=== PATIENT | female | born 1960 | race Caucasian/White ===

== ENCOUNTER 2017-07-10 11:04 | Emergency (ER) | payer OTHER ==
[2017-07-10 11:26] VITALS: RESP 18
--- NOTE | 2017-07-10 11:33 | ED ---
Lower Extremity Injury HPI - General Chief Complaint: Extremity Injury, Lower Stated Complaint: RT FOOT INJURY Time Seen by Provider: 07/10/17 11:26 Source: patient, RN notes reviewed Mode of arrival: wheelchair Limitations: no limitations - History of Present Illness Initial Comments: This a 57-year-old female presents emergency Department chief complaint right foot injury. Patient states she stepped wrong on it last night in her kitchen states that rolled. She has no ankle pain states it's intermittent top of her foot. Patient states that she's had no prior fracture to her right foot states it feels similar to when she had a fracture for left. Denies any paresthesias. Denies any other extremity injuries or head injury. Patient does admit that she has osteoporosis. - Related Data Home Medications Medication Instructions Recorded Confirmed Metoprolol Succinate (ER) [Toprol 50 mg PO DAILY 07/06/14 07/10/17 Xl] Atorvastatin [Lipitor] 80 mg PO DAILY 12/19/15 07/10/17 Famotidine [Pepcid] 20 mg PO DAILY 12/19/15 07/10/17 Aspirin 325 mg PO DAILY 07/10/17 07/10/17 Previous Rx's Medication Instructions Recorded Hydrocodone/Acetaminophen [[place] 1 tab PO Q6HR PRN #20 tab 07/10/17 5-325] Allergies Allergy/AdvReac Type Severity Reaction Status Date / Time No Known Allergies Allergy Verified 07/10/17 12:11 Review of Systems ROS Statement: Those systems with pertinent positive or pertinent negative responses have been documented in the HPI. ROS Other: All systems not noted in ROS Statement are negative. Past Medical History Past Medical History: Asthma, Coronary Artery Disease (CAD), COPD, GERD/Reflux, Hyperlipidemia, Hypertension, Myocardial Infarction ([place]), Myocardial Infarction (non Q-wave), Skin Disorder Additional Past Medical History / Comment(s): HX CONCUSSION X3 CHILD. KIDNEY STONE X1. ECZEMA. [place] AGE 40; POSS [place] 11/24, TOLD NOT BY COSMETIC CHEMIST - BUT STENT REPLACED. LMP 2007. HX COLON POLYPS. Last Myocardial Infarction Date:: 12-07-13 History of Any Multi-Drug Resistant Organisms: None Reported Past Surgical History: Adenoidectomy, Appendectomy, Heart Catheterization With Stent, Orthopedic Surgery, Tonsillectomy, Tubal Ligation Additional Past Surgical History / Comment(s): Cardiac Stent 13 YEARS AGO, STENT REPLACED 12-07-13. ORIF LT ANKLE, HAS PLATE/6 SCREWS. Past Anesthesia/Blood Transfusion Reactions: Previous Problems w/ Anesthesia Additional Past Anesthesia/Blood Transfusion Reaction / Comment(s): HX LOW BLOOD PRESSURE X1 W/ COLONOSCOPY (AFTER [place]). Date of Last Stent Placement:: 12/07/13 Past Psychological History: Anxiety, Depression Smoking Status: Current every day smoker Past Alcohol Use History: Occasional Past Drug Use History: None Reported - Past Family History Father Additional Family Medical History / Comment(s): UNK Mother Family Medical History: Cancer Additional Family Medical History / Comment(s): AT AGE 62-CANCER General Exam Limitations: no limitations General appearance: alert, in no apparent distress Head exam: Present: atraumatic, normocephalic, normal inspection Respiratory exam: Present: normal lung sounds bilaterally. Absent: respiratory distress, wheezes, rales, rhonchi, stridor Cardiovascular Exam: Present: regular rate, normal rhythm, normal heart sounds. Absent: systolic murmur, diastolic murmur, rubs, gallop, clicks Extremities exam: Present: other (Right foot there is tenderness to the mid foot mild swelling pedal pulses equal bilaterally there is no tenderness over the malleolus the ankle region., Patient's full sensation of her digits) Skin exam: Present: warm, dry Course Vital Signs 07/10/17 11:24 Temperature 97.2 F L Pulse Rate 76 Respiratory 18 Rate Blood Pressure 119/59 O2 Sat by Pulse 98 Oximetry Procedures - Orthopedic Splinting/Casting Injury #1 Side: right Lower Extremity Injury Location: short leg, foot Lower Extremity Immobilizer: posterior splint, synthetic pre-padded splint Additional Comments: Neurovascular intact Medical Decision Making - Medical Decision Making 57-year-old female presentedfor right foot injury. Patient has multiple fractures of metatarsals. Case discussed with on-call orthopedics. Harish Garcia did state that it if she has neurovascular intact that she can be splinted and follow-up in office. Disposition Clinical Impression: Multiple closed fractures of metatarsal bone of right foot Disposition: HOME SELF-CARE Condition: Stable Instructions: Foot Fracture in Adults (ED) Additional Instructions: Please return to the Emergency Department if symptoms worsen or any other concerns. Prescriptions: Hydrocodone/Acetaminophen [[place] 5-325] 1 tab PO Q6HR PRN #20 tab PRN Reason: Pain Referrals: Lynn Lord MD [Primary Care Provider] - 1-2 days Poncho Rascon MD [Medical Doctor] - 1-2 days Time of Disposition: 13:16
--- NOTE | 2017-07-10 12:00 | XR ---
EXAMINATION TYPE: XR foot complete RT DATE OF EXAM: 07/10/2017 CLINICAL HISTORY: pain TECHNIQUE: Frontal, lateral and oblique images of the right foot are obtained. COMPARISON: None. FINDINGS: Nondisplaced transversely oriented fractures involving the second, third and fourth metatar sals noted. Oblique fracture at the base of the fifth metatarsal. No definite widening at this time o f the first intertarsal joint space. Overlying soft tissue swelling noted. IMPRESSION: Virtually nondisplaced metatarsal fractures of metatarsals 2 through 5. ICD 10 closed FRACTURE, INITIAL EVALUATION
[2017-07-10] MEDS ORDERED: HYDROcodone/APAP 7.5-325MG 1 EACH TAB PO ONE (12:08)
[2017-07-10 13:51] VITALS: BP 134/67; PULSE 66; TEMP 97.1
== END 2017-07-10 13:50 | disposition home or self-care (01) ==
LOC: EC 11:04
DX: S92.324A Nondisplaced fracture of second metatarsal bone, right foot, initial encounter for closed fracture (principal); S92.334A Nondisplaced fracture of third metatarsal bone, right foot, initial encounter for closed fracture; S92.344A Nondisplaced fracture of fourth metatarsal bone, right foot, initial encounter for closed fracture; S92.354A Nondisplaced fracture of fifth metatarsal bone, right foot, initial encounter for closed fracture; M81.0 Age-related osteoporosis without current pathological fracture; I25.10 Atherosclerotic heart disease of native coronary artery without angina pectoris; I25.2 Old myocardial infarction; E78.5 Hyperlipidemia, unspecified; I10 Essential (primary) hypertension; Z79.82 Long term (current) use of aspirin; Z79.899 Other long term (current) drug therapy; Z95.5 Presence of coronary angioplasty implant and graft; F17.200 Nicotine dependence, unspecified, uncomplicated; X50.1XXA Overexertion from prolonged static or awkward postures, initial encounter; Y92.000 Kitchen of unspecified non-institutional (private) residence as the place of occurrence of the external cause
CPT/HCPCS: 29515; 99283

== ENCOUNTER → 2017-10-03 | Outpatient (CLI) | payer OTHER ==
--- NOTE | 2017-10-03 11:47 | CT ---
EXAMINATION TYPE: CT brain wo con DATE OF EXAM: 10/03/2017 COMPARISON: NONE HISTORY: 57-year-old female with headache TECHNIQUE: Examination was done in axial plane without intravenous contrast. Coronal and sagittal r econstructions performed. CT DLP: 981.7 mGycm Automated exposure control for dose reduction was used. FINDINGS: There is no evidence of acute intracranial hemorrhage, acute ischemic changes, mass, mass-effect, or extra-axial fluid collection. There is no effacement of cerebral sulci or basal subarachnoid cister ns. There is no hydrocephalus. There is no midline shift. Ball-white matter distinction is preserv ed. Mild generalized supratentorial volume loss. Mild patchy white matter hypodensities in both cerebral hemispheres. Frothy opacification in the right maxillary sinus. Mastoid air cells are well pneumatized. Orbits and globes are intact. IMPRESSION: 1. Mild cerebral atrophy and changes of chronic small vessel ischemic disease. No acute intracranial abnormality seen. 2. Frothy opacification right maxillary sinus suggests acute sinusitis.
== END | disposition home or self-care (01) ==
LOC: RADCTMAIN 10:53
PROVIDERS: ATTEND Family Medicine
DX: G31.9 Degenerative disease of nervous system, unspecified (principal); I67.82 Cerebral ischemia
CPT/HCPCS: 70450

== ENCOUNTER → 2017-10-06 | Outpatient (CLI) | payer OTHER ==
--- NOTE | 2017-10-06 12:38 | ECHOF ---
Referral Reason:I25.10 Atherosclerotic heart disease of [place]... MEASUREMENTS -------- HEIGHT: 160.0 cm WEIGHT: 62.6 kg BP: IVSd: 0.9 cm (0.6 - 1.1) LVIDd: 4.3 cm (3.9 - 5.3) LVPWd: 1.1 cm (0.6 - 1.1) IVSs: 1.5 cm LVIDs: 1.9 cm LVPWs: 1.3 cm LAESV Index (A-L): 15.10 ml/m Ao Diam: 2.5 cm (2.0 - 3.7) AV Cusp: 2.0 cm (1.5 - 2.6) LA Diam: 3.0 cm (2.7 - 3.8) MV EXCURSION: 15.965 mm (> 18.000) MV EF SLOPE: 49 mm/s (70 - 150) EPSS: 0.3 cm MV E Liam: 0.49 m/s MV DecT: 171 ms MV A Liam: 1.00 m/s MV E/A Ratio: 0.49 RAP: 5.00 mmHg RVSP: 14.31 mmHg FINDINGS -------- Resting tachycardia (HR>100bpm). This was a technically good study. The left ventricular size is normal. Left ventricular wall thickness is normal. Overall left vent ricular systolic function is normal with, an EF between 55 - 60 %. The right ventricle is normal in size and function. The left atrium is normal in size. The right atrium is normal in size. The aortic valve is trileaflet, and appears structurally normal. No aortic stenosis or regurgitation. Mild mitral annular calcification present. There is trace mitral regurgitation. Trace tricuspid regurgitation present. The right ventricular systolic pressure, as measured by Dopp ler, is 14.31mmHg. Pulmonic valve appears structurally normal. The aortic root, ascending aorta and aortic arch are normal. Normal inferior vena cava with normal inspiratory collapse consistent with estimated right atrial pre ssure of 5 mmHg. The pericardium is normal. CONCLUSIONS -------- 1. Resting tachycardia (HR>100bpm). 2. This was a technically good study. 3. The left ventricular size is normal. 4. Left ventricular wall thickness is normal. 5. Overall left ventricular systolic function is normal with, an EF between 55 - 60 %. 6. The right ventricle is normal in size and function. 7. The left atrium is normal in size. 8. The right atrium is normal in size. 9. The aortic valve is trileaflet, and appears structurally normal. No aortic stenosis or regurgitati on. 10. Mild mitral annular calcification present. 11. There is trace mitral regurgitation. 12. Trace tricuspid regurgitation present. 13. The right ventricular systolic pressure, as measured by Doppler, is 14.31mmHg. 14. Pulmonic valve appears structurally normal. 15. The aortic root, ascending aorta and aortic arch are normal. 16. Normal inferior vena cava with normal inspiratory collapse consistent with estimated right atrial pressure of 5 mmHg. 17. The pericardium is normal. WEB PAGE DEVELOPER: Natty Gonzalez RDCS
== END | disposition home or self-care (01) ==
LOC: RADECHMAIN 11:26
PROVIDERS: ATTEND Family Medicine
DX: R51 Headache (principal); I25.10 Atherosclerotic heart disease of native coronary artery without angina pectoris
CPT/HCPCS: 93306

== ENCOUNTER → 2017-10-08 | Outpatient (CLI) | payer OTHER ==
--- NOTE | 2017-10-08 15:45 | US ---
EXAMINATION TYPE: US carotid duplex BILAT DATE OF EXAM: 10/08/2017 COMPARISON: NONE CLINICAL HISTORY: I25.10 Atherosclerotic heart disease of [place].... Headache EXAM MEASUREMENTS: RIGHT: Peak Systolic Velocity (PSV) cm/sec ----- Right CCA: 60.0 ----- Right ICA: 106.9 ----- Right ECA: 82.3 ICA/CCA ratio: 1.8 RIGHT: End Diastole cm/sec ----- Right CCA: 17.1 ----- Right ICA: 40.9 ----- Right ECA: 9.8 LEFT: Peak Systolic Velocity (PSV) cm/sec ----- Left CCA: 55.6 ----- Left ICA: 87.5 ----- Left ECA: 117.3 ICA/CCA ratio: 1.6 LEFT: End Diastole cm/sec ----- Left CCA: 12.8 ----- Left ICA: 30.5 ----- Left ECA: 22.0 VERTEBRALS (direction of flow): Right Vertebral: Antegrade Left Vertebral: Antegrade Rhythm: Normal IMPRESSION: Moderate amount of plaque visualized in bilateral bulbs. No elevated velocities. Criteria for Assigning % of Stenosis / Diameter reduction (Estimation based on the indirect measurements of the internal carotid artery velocities (ICA PSV). 1. Normal (no stenosis)=ICA PSV < 125 cm/s: ratio < 2.0: ICA EDV<40 cm/s. 2. Less than 50% stenosis=ICA PSV < 125 cm/s: ratio < 2.0: ICA EDV<40 cm/s. 3. 50 to 69% stenosis=ICA PSV of 125 to 230 cm/s: ration 2.0 ? 4.0: ICA EDV 40-100 cm/s. 4. Greater than 70% stenosis to near occlusion= ICA PSV > 230 cm/s: ratio > 4.0: ICA EDV > 100 cm/s. 5. Near occlusion= ICA PSV velocities may be low or undetectable: variable ratio and ICA EDV. 6. Total occlusion=unable to detect flow.
== END | disposition home or self-care (01) ==
LOC: RADUSWWP 14:54
PROVIDERS: ATTEND Family Medicine
DX: I65.23 Occlusion and stenosis of bilateral carotid arteries (principal); I25.10 Atherosclerotic heart disease of native coronary artery without angina pectoris
CPT/HCPCS: 93880

== ENCOUNTER → 2017-10-28 | Outpatient (CLI) | payer OTHER ==
--- NOTE | 2017-10-30 10:57 | MM ---
Reason for exam: screening (asymptomatic). History: Patient is postmenopausal. Physical Findings: A clinical breast exam by your physician is recommended on an annual basis and results should be correlated with mammographic findings. MG Screening Mammo w CAD Bilateral CC and MLO view(s) were taken. No prior studies available for comparison. The breast tissue is heterogeneously dense. This may lower the sensitivity of mammography. No suspicious abnormality. ASSESSMENT: Negative, BI-RAD 1 RECOMMENDATION: Routine screening mammogram of both breasts in 1 year.
== END | disposition home or self-care (01) ==
LOC: RADMAMWWP 11:28
PROVIDERS: ATTEND Family Medicine
DX: Z12.31 Encounter for screening mammogram for malignant neoplasm of breast (principal)
CPT/HCPCS: 77067

== ENCOUNTER → 2017-11-10 | Outpatient (CLI) | payer OTHER | END | disposition home or self-care (01) | LOC: CPPFTMAIN 10:29 | PROVIDERS: ATTEND Family Medicine | DX: J45.909 Unspecified asthma, uncomplicated (principal) | CPT/HCPCS: 94060; 94726; 94729 ==

== ENCOUNTER 2017-12-13 16:26 | Emergency (ER) | payer OTHER ==
[2017-12-13 16:35] VITALS: BP 122/91; PULSE 92; RESP 16; TEMP 98.5
--- NOTE | 2017-12-13 16:46 | ED ---
General Adult HPI - General Chief complaint: Head Injury Stated complaint: Left eye injury Time Seen by Provider: 12/13/17 16:38 Source: patient, RN notes reviewed Mode of arrival: ambulatory Limitations: no limitations - History of Present Illness Initial comments: Patient's a 57-year-old female presented to the emergency room today with a chief complaint of a head injury that occurred 2 days ago. She states she was laying in bed early in the morning approximately 1 AM Thursday when she rolled didn't realize she was so close to the edge and rolled out of bed hitting her head on the nightstand. She states that she does not believe she lost consciousness. She states that she was able to get herself back up and go back into bed. Patient states that she's had increased swelling to the left thigh. She states that has dropped down now to the left eye as well. She states there is no pain specifically to the left eye but just surrounding the area. Patient also admits to some tenderness above the right eye as well. She states her vision has been normal has been no changes. She does admit that she's had a headache. Patient denies any other complaints. Denies any neck pain. Patient denies any recent fever, chills, shortness of breath, chest pain, back pain, abdominal pain, nausea or vomiting, numbness or tingling, visual changes, or any other complaints. - Related Data Home Medications Medication Instructions Recorded Confirmed Metoprolol Succinate (ER) [Toprol 50 mg PO DAILY 07/06/14 07/10/17 Xl] Atorvastatin [Lipitor] 80 mg PO DAILY 12/19/15 07/10/17 Famotidine [Pepcid] 20 mg PO DAILY 12/19/15 07/10/17 Aspirin 325 mg PO DAILY 07/10/17 07/10/17 Previous Rx's Medication Instructions Recorded Hydrocodone/Acetaminophen [[place] 1 tab PO Q6HR PRN #20 tab 07/10/17 5-325] Allergies Allergy/AdvReac Type Severity Reaction Status Date / Time No Known Allergies Allergy Verified 07/10/17 12:11 Review of Systems ROS Statement: Those systems with pertinent positive or pertinent negative responses have been documented in the HPI. ROS Other: All systems not noted in ROS Statement are negative. Past Medical History Past Medical History: Asthma, Coronary Artery Disease (CAD), COPD, GERD/Reflux, Hyperlipidemia, Hypertension, Myocardial Infarction ([place]), Myocardial Infarction (non Q-wave), Skin Disorder Additional Past Medical History / Comment(s): HX CONCUSSION X3 CHILD. KIDNEY STONE X1. ECZEMA. [place] AGE 40; POSS [place] 11/24, TOLD NOT BY SALES SUPPORT ASSOCIATE - BUT STENT REPLACED. LMP 2007. HX COLON POLYPS. Last Myocardial Infarction Date:: 12-07-13 History of Any Multi-Drug Resistant Organisms: None Reported Past Surgical History: Adenoidectomy, Appendectomy, Heart Catheterization With Stent, Orthopedic Surgery, Tonsillectomy, Tubal Ligation Additional Past Surgical History / Comment(s): Cardiac Stent 13 YEARS AGO, STENT REPLACED 12-07-13. ORIF LT ANKLE, HAS PLATE/6 SCREWS. Past Anesthesia/Blood Transfusion Reactions: Previous Problems w/ Anesthesia Additional Past Anesthesia/Blood Transfusion Reaction / Comment(s): HX LOW BLOOD PRESSURE X1 W/ COLONOSCOPY (AFTER ME). Date of Last Stent Placement:: 12/07/13 Past Psychological History: Anxiety, Depression Smoking Status: Current every day smoker Past Alcohol Use History: Occasional Past Drug Use History: None Reported - Past Family History Father Additional Family Medical History / Comment(s): UNK Mother Family Medical History: Cancer Additional Family Medical History / Comment(s): AT AGE 62-CANCER General Exam - General Exam Comments Initial Comments: General: The patient is awake and alert, in no distress, and does not appear acutely ill. Eye: Pupils are equal, round and reactive to light, extra-ocular movements are intact. No nystagmus. There is normal conjunctiva bilaterally. No signs of icterus. No hyphema. No subconjunctival hemorrhage. Patient does have tenderness to superior orbital bones both on the right. No inferior orbital bone tenderness. Ears, nose, mouth and throat: There are moist mucous membranes and no oral lesions. Neck: The neck is supple, there is no tenderness or JVD. Cardiovascular: There is a regular rate and rhythm. No murmur, rub or gallop is appreciated. Respiratory: Lungs are clear to auscultation, respirations are non-labored, breath sounds are equal. No wheezes, stridor, rales, or rhonchi. Musculoskeletal: Normal ROM. Normal appearance of cervical, thoracic and lumbar spine with no step-off or deformity. No tenderness midline. No Tenderness to the extremities. Strength 5/5. Sensation intact. Pulses equal bilaterally 2+. Neurological: A&O x 3. CN II-XII intact, There are no obvious motor or sensory deficits. Coordination appears grossly intact. Speech is normal. Skin: Skin is warm and dry and intact. Patient does have bruising and mild swelling peripheral in color around left eye. Psychiatric: Cooperative, appropriate mood & affect, normal judgment. Limitations: no limitations Course Vital Signs 12/13/17 16:32 Temperature 98.5 F Pulse Rate 92 Respiratory 16 Rate Blood Pressure 122/91 O2 Sat by Pulse 95 Oximetry Medical Decision Making - Medical Decision Making Patient's CT of the head head and facial bones was reviewed and shows left- sided swelling around left eye. There is no other acute abnormality. Results were unable be discussed with the patient as she had eloped from the emergency room. Patient did not tell anyone that she was leaving. Nursing staff did note that she became upset after registration was in there asking her questions. They state that she made comments such as patient artery have all his information and should know since she's been here before patient has not returned to her room. Disposition Clinical Impression: Facial contusion, Head injury, Concussion Disposition: HOME SELF-CARE Condition: Good Instructions: Concussion (ED) Is patient prescribed a controlled substance at d/c from ED?: No Referrals: Lynn Lord MD [Primary Care Provider] - 1-2 days Time of Disposition: 18:00
--- NOTE | 2017-12-13 17:24 | CT ---
EXAMINATION TYPE: CT brain wo con DATE OF EXAM: 12/13/2017 COMPARISON: 10/03/2017 HISTORY: Left orbital swelling and bruising. CT DLP: 1060.81 mGycm Automated exposure control for dose reduction was used. FINDINGS: There is some cerebral cortical atrophy. There is no mass effect nor midline shift. There is no sign of intracranial hemorrhage. There is left periorbital soft tissue swelling. There is no evidence of o rbital mass. IMPRESSION: MILD ATROPHY. THERE IS LEFT PERIORBITAL SOFT TISSUE SWELLING. NO ACUTE INTRACRANIAL ABNORMALITY.
--- NOTE | 2017-12-13 17:25 | CT ---
EXAMINATION TYPE: CT facial bones wo con DATE OF EXAM: 12/13/2017 COMPARISON: None HISTORY: Left orbital swelling and bruising. CT DLP: 761.8 mGycm Automated exposure control for dose reduction was used. TECHNIQUE: CT scan of the sinuses is performed without contrast, axial images are obtained, coronal r eformatted images are also reviewed. FINDINGS: The mandibular ring is intact. Maxilla is intact. Zygomatic arches appear normal. Nasal bon e is intact. There is fairly normal aeration of the paranasal sinuses. There is no evidence of a blow out fracture. There is 1 cm mucous retention cyst in the right maxillary sinus. There is anterior left periorbital soft tissue swelling. There is no retro-orbital mass. IMPRESSION: Left periorbital soft tissue swelling. No fracture.
== END 2017-12-13 18:09 | disposition home or self-care (01) ==
LOC: EC 16:26
DX: S06.0X0A Concussion without loss of consciousness, initial encounter (principal); M79.89 Other specified soft tissue disorders; I10 Essential (primary) hypertension; E78.5 Hyperlipidemia, unspecified; I25.10 Atherosclerotic heart disease of native coronary artery without angina pectoris; K21.9 Gastro-esophageal reflux disease without esophagitis; I25.2 Old myocardial infarction; F17.200 Nicotine dependence, unspecified, uncomplicated; Z95.5 Presence of coronary angioplasty implant and graft; Z98.890 Other specified postprocedural states; Z79.82 Long term (current) use of aspirin; Z79.899 Other long term (current) drug therapy; W06.XXXA Fall from bed, initial encounter; Y92.009 Unspecified place in unspecified non-institutional (private) residence as the place of occurrence of the external cause
CPT/HCPCS: 70450; 70486; 99283

== ENCOUNTER 2018-02-09 11:26 | Emergency (ER) | payer OTHER ==
[2018-02-09 11:30] VITALS: PULSE 75; TEMP 98.2
--- NOTE | 2018-02-09 11:56 | ED ---
General Adult HPI - General Chief complaint: Extremity Injury, Lower Stated complaint: Foot injury Time Seen by Provider: 02/09/18 11:40 Source: patient, RN notes reviewed Mode of arrival: wheelchair Limitations: no limitations - History of Present Illness Initial comments: Patient 57-year-old female presented to the emergency room today with a chief complaint of an injury to the left foot that occurred yesterday. She does not that she tripped which was walking on sidewalk. She states that she landed on the left knee. She states she has a little abrasion in this area but otherwise feels fine. She states she notices the night when on that she was having increased pain to the left foot. She states particularly over the fourth and fifth metatarsals. Patient denies any other complaints or symptoms. Patient states she is able to ambulate bear weight. Patient denies any recent fever, chills, shortness of breath, chest pain, back pain, numbness or tingling, headaches or visual changes, or any other complaints. - Related Data Home Medications Medication Instructions Recorded Confirmed Metoprolol Succinate (ER) [Toprol 50 mg PO DAILY 07/06/14 02/09/18 Xl] Famotidine [Pepcid] 20 mg PO DAILY 12/19/15 02/09/18 Aspirin 325 mg PO DAILY 07/10/17 02/09/18 Albuterol Inhaler [Ventolin Hfa 2 puff INHALATION RT-Q4H PRN 02/09/18 02/09/18 Inhaler] Allopurinol [Zyloprim] 100 mg PO HS 02/09/18 02/09/18 Atorvastatin [Lipitor] 20 mg PO HS 02/09/18 02/09/18 Fluticasone Nasal [place] [Flonase 1 spray EA NOSTRIL DAILY 02/09/18 02/09/18 Nasal [place]] Loratadine [Claritin] 10 mg PO DAILY 02/09/18 02/09/18 Sertraline HCl [Zoloft] 25 mg PO DAILY 02/09/18 02/09/18 Allergies Allergy/AdvReac Type Severity Reaction Status Date / Time No Known Allergies Allergy Verified 02/09/18 11:30 Review of Systems ROS Statement: Those systems with pertinent positive or pertinent negative responses have been documented in the HPI. ROS Other: All systems not noted in ROS Statement are negative. Past Medical History Past Medical History: Asthma, Coronary Artery Disease (CAD), COPD, GERD/Reflux, Hyperlipidemia, Hypertension, Myocardial Infarction ([place]), Myocardial Infarction (non Q-wave), Skin Disorder Additional Past Medical History / Comment(s): HX CONCUSSION X3 CHILD. KIDNEY STONE X1. ECZEMA. [place] AGE 40; POSS [place] 11/24, TOLD NOT BY ROD STRAIGHTENER - BUT STENT REPLACED. LMP 2007. HX COLON POLYPS. Last Myocardial Infarction Date:: 12-07-13 History of Any Multi-Drug Resistant Organisms: None Reported Past Surgical History: Adenoidectomy, Appendectomy, Heart Catheterization With Stent, Orthopedic Surgery, Tonsillectomy, Tubal Ligation Additional Past Surgical History / Comment(s): Cardiac Stent 13 YEARS AGO, STENT REPLACED 12-07-13. ORIF LT ANKLE, HAS PLATE/6 SCREWS. Past Anesthesia/Blood Transfusion Reactions: Previous Problems w/ Anesthesia Additional Past Anesthesia/Blood Transfusion Reaction / Comment(s): HX LOW BLOOD PRESSURE X1 W/ COLONOSCOPY (AFTER [place]). Date of Last Stent Placement:: 12/07/13 Past Psychological History: Anxiety, Depression Smoking Status: Current every day smoker Past Alcohol Use History: Occasional Past Drug Use History: None Reported - Past Family History Father Additional Family Medical History / Comment(s): UNK Mother Family Medical History: Cancer Additional Family Medical History / Comment(s): AT AGE 62-CANCER General Exam - General Exam Comments Initial Comments: General: The patient is awake and alert, in no distress, and does not appear acutely ill. Neck: The neck is supple, there is no tenderness or JVD. Musculoskeletal: Patient does have bruising over the fourth and fifth metatarsals. Patient shows good range of motion of her toes. Normal range of motion of the left ankle. Bony tenderness over the distal fourth and fifth metatarsal. Locally tender over the distal fourth and fifth metatarsals. Pedal pulse 2+. Neurological: A&O x 3. CN II-XII intact, There are no obvious motor or sensory deficits. Coordination appears grossly intact. Speech is normal. Skin: Skin is warm and dry and no rashes or lesions are noted. Psychiatric: Normal mood and affect. Limitations: no limitations Course Vital Signs 02/09/18 11:27 Temperature 98.2 F Pulse Rate 75 Respiratory 18 Rate Blood Pressure 183/84 O2 Sat by Pulse 99 Oximetry Medical Decision Making - Medical Decision Making Patient's x-rays been reviewed and does show sclerosing at the neck of the fifth metacarpal. No acute fracture dislocation present. Patient has tenderness over the proximal fifth metatarsal. Tenderness is distally the fourth and fifth. Patient is advised to continue ice elevate and follow-up with the orthopedic doctor over the next 7-10 days for repeat x-rays if symptoms persist. Disposition Clinical Impression: Foot contusion Disposition: HOME SELF-CARE Condition: Good Instructions: Foot Contusion (ED) Additional Instructions: Please continue to ice elevate the affected area at least 4 times a day for 20 minutes at a time. Please use Tylenol/ibuprofen for pain. Please follow-up in 7-10 days for repeat x-rays if symptoms persist. Please return to emergency room for any other concerns. Is patient prescribed a controlled substance at d/c from ED?: No Referrals: Lynn Lord MD [Primary Care Provider] - 1-2 days Time of Disposition: 13:05
--- NOTE | 2018-02-09 12:16 | XR ---
EXAMINATION TYPE: XR foot complete LT DATE OF EXAM: 02/09/2018 CLINICAL HISTORY: pain TECHNIQUE: Frontal, lateral and oblique images of the left foot are obtained. COMPARISON: None. FINDINGS: There is no acute fracture/dislocation evident. Sclerosis at the neck of the fifth metatar juju may reflect a nonacute fracture. Correlate clinically point tenderness. The joint spaces appear within normal limits. The overlying soft tissue appears unremarkable. Postoperative changes left ank le. IMPRESSION: There is no acute fracture/dislocation evident. Sclerosis at the neck of the fifth metatarsal may ref lect a nonacute fracture. Correlate clinically and with point tenderness.
[2018-02-09 13:36] VITALS: BP 164/82; RESP 16
== END 2018-02-09 13:36 | disposition home or self-care (01) ==
LOC: EC 11:26
DX: S90.32XA Contusion of left foot, initial encounter (principal); S90.122A Contusion of left lesser toe(s) without damage to nail, initial encounter; S80.212A Abrasion, left knee, initial encounter; J44.9 Chronic obstructive pulmonary disease, unspecified; E78.5 Hyperlipidemia, unspecified; I10 Essential (primary) hypertension; I25.10 Atherosclerotic heart disease of native coronary artery without angina pectoris; K21.9 Gastro-esophageal reflux disease without esophagitis; F32.9 Major depressive disorder, single episode, unspecified; F41.9 Anxiety disorder, unspecified; I25.2 Old myocardial infarction; F17.200 Nicotine dependence, unspecified, uncomplicated; Z79.51 Long term (current) use of inhaled steroids; Z79.82 Long term (current) use of aspirin; Z79.899 Other long term (current) drug therapy; Z95.5 Presence of coronary angioplasty implant and graft; Z98.890 Other specified postprocedural states; W22.8XXA Striking against or struck by other objects, initial encounter; Y93.01 Activity, walking, marching and hiking; Y92.480 Sidewalk as the place of occurrence of the external cause
CPT/HCPCS: 99283

== ENCOUNTER 2018-05-31 15:24 | Emergency (ER) | payer OTHER ==
[2018-05-31] MEDS ORDERED: ALBUTEROL NEBULIZED 2.5 MG/3 ML INHALATION STA (16:23)
[2018-05-31] MEDS ORDERED: IPRATROPIUM-ALBUTEROL 3 ML NEB INHALATION STA (16:23)
[2018-05-31] MEDS ORDERED: DEXAMETHASONE SOD PHOSPHATE 10 MG/ML 1 ML VIAL IV STA (16:23)
[2018-05-31 16:38] LABS: Basophils # (A) 0.1 k/uL (0-0.2); Basophils % (A) 1 %; Eosinophils # (A) 0.1 k/uL (0-0.7); Eosinophils % (A) 1 %; HCT 44.2 % (34.0-46.0); HGB 15.1 gm/dL (11.4-16.0); Lymphocytes # (A) 1.7 k/uL (1.0-4.8); Lymphocytes % (A) 20 %; MCH 30.8 pg (25.0-35.0); MCHC 34.1 g/dL (31.0-37.0); MCV 90.5 fL (80.0-100.0); Mean Platelet Volume 6.3; Monocytes # (A) 0.7 k/uL (0-1.0); Monocytes % (A) 8 %; Neutrophils % (A) 70 %; Platelet Count 364 k/uL (150-450); RBC 4.89 m/uL (3.80-5.40); RDW 14.1 % (11.5-15.5); WBC 8.6 k/uL (3.8-10.6)
[2018-05-31 16:53] LABS: ALT 28 U/L (9-52); AST 27 U/L (14-36); Albumin 4.3 g/dL (3.5-5.0); Alkaline Phosphatase 111 U/L (38-126); Anion Gap 8 mmol/L; Blood Urea Nitrogen 10 mg/dL (7-17); Calcium 9.6 mg/dL (8.4-10.2); Carbon Dioxide 26 mmol/L (22-30); Chloride 104 mmol/L (98-107); Glucose 121 mg/dL (74-99); Lipase 405 U/L (23-300); Magnesium 1.9 mg/dL (1.6-2.3); Potassium 3.4 mmol/L (3.5-5.1); Sodium 138 mmol/L (137-145); Total Bilirubin 0.5 mg/dL (0.2-1.3); Total Protein 7.2 g/dL (6.3-8.2)
[2018-05-31 16:55] LABS: D-Dimer 0.57 mg/L FEU (<0.60); INR 0.9 (<1.2); Partial Thromboplastin Time 24.2 sec (22.0-30.0); Prothrombin Time 9.8 sec (9.0-12.0)
[2018-05-31 17:05] LABS: Creatine Kinase 85 U/L (30-135)
--- NOTE | 2018-05-31 17:14 | ED ---
General Adult HPI - General Chief complaint: Chest Pain Stated complaint: Chest pain Time Seen by Provider: 05/31/18 16:07 Source: patient, RN notes reviewed, old records reviewed Mode of arrival: ambulatory Limitations: no limitations - History of Present Illness Initial comments: 58-year-old female history of CAD, COPD, Crohn's smoker presenting with right- sided chest pain. Patient's pain began this morning with cough. She does not report significant dyspnea, pain is worse with deep inspiration. Denies injury. Denies abdominal pain. Denies nausea vomiting. Denies diaphoresis. Denies any central or left-sided chest pain. Patient has had slight worsening cough. She is currently smoking. - Related Data Home Medications Medication Instructions Recorded Confirmed Metoprolol Succinate (ER) [Toprol 50 mg PO DAILY 07/06/14 05/31/18 Xl] Famotidine [Pepcid] 20 mg PO DAILY 12/19/15 05/31/18 Aspirin 325 mg PO DAILY 07/10/17 05/31/18 Albuterol Inhaler [Ventolin Hfa 2 puff INHALATION RT-Q4H PRN 02/09/18 05/31/18 Inhaler] Allopurinol [Zyloprim] 100 mg PO HS 02/09/18 05/31/18 Atorvastatin [Lipitor] 20 mg PO HS 02/09/18 05/31/18 Loratadine [Claritin] 10 mg PO DAILY 02/09/18 05/31/18 Sertraline HCl [Zoloft] 25 mg PO DAILY 02/09/18 05/31/18 Calcium Carbonate [Calcium] 600 mg PO TID 05/31/18 05/31/18 Losartan [Cozaar] 50 mg PO DAILY 05/31/18 05/31/18 Previous Rx's Medication Instructions Recorded Albuterol Inhaler [Ventolin Hfa 1 - 2 puff INHALATION Q4HR PRN #1 05/31/18 Inhaler] inhaler Azithromycin [Zithromax Z-pack] 0 mg PO DIRECTED #6 tab 05/31/18 predniSONE 50 mg PO DAILY #5 tab 05/31/18 Allergies Allergy/AdvReac Type Severity Reaction Status Date / Time No Known Allergies Allergy Verified 05/31/18 16:47 Review of Systems ROS Statement: Those systems with pertinent positive or pertinent negative responses have been documented in the HPI. ROS Other: All systems not noted in ROS Statement are negative. Past Medical History Past Medical History: Asthma, Coronary Artery Disease (CAD), COPD, GERD/Reflux, Hyperlipidemia, Hypertension, Myocardial Infarction (VT), Myocardial Infarction (non Q-wave), Skin Disorder Additional Past Medical History / Comment(s): HX CONCUSSION X3 CHILD. KIDNEY STONE X1. ECZEMA. VT AGE 40; POSS VT 11/24, TOLD NOT BY SOFTBALL UMPIRE - BUT STENT REPLACED. LMP 2007. HX COLON POLYPS. Last Myocardial Infarction Date:: 12-07-13 History of Any Multi-Drug Resistant Organisms: None Reported Past Surgical History: Adenoidectomy, Appendectomy, Heart Catheterization With Stent, Orthopedic Surgery, Tonsillectomy, Tubal Ligation Additional Past Surgical History / Comment(s): Cardiac Stent 13 YEARS AGO, STENT REPLACED 12-07-13. ORIF LT ANKLE, HAS PLATE/6 SCREWS. Past Anesthesia/Blood Transfusion Reactions: Previous Problems w/ Anesthesia Additional Past Anesthesia/Blood Transfusion Reaction / Comment(s): HX LOW BLOOD PRESSURE X1 W/ COLONOSCOPY (AFTER VT). Date of Last Stent Placement:: 12/07/13 Past Psychological History: Anxiety, Depression Smoking Status: Current every day smoker Past Alcohol Use History: Occasional Past Drug Use History: None Reported - Past Family History Father Additional Family Medical History / Comment(s): UNK Mother Family Medical History: Cancer Additional Family Medical History / Comment(s): AT AGE 62-CANCER General Exam Limitations: no limitations General appearance: alert, in no apparent distress Head exam: Present: atraumatic, normocephalic Eye exam: Present: normal appearance, PERRL ENT exam: Present: normal exam Neck exam: Present: normal inspection. Absent: tenderness, meningismus Respiratory exam: Present: wheezes (Bilateral breath sounds present, wheezing bilaterally). Absent: respiratory distress, rhonchi Cardiovascular Exam: Present: regular rate, normal rhythm GI/Abdominal exam: Present: soft. Absent: distended, tenderness, guarding, rebound Extremities exam: Present: normal inspection, normal capillary refill. Absent: pedal edema, calf tenderness Back exam: Present: normal inspection, full ROM. Absent: tenderness Neurological exam: Present: alert, oriented X3 Psychiatric exam: Present: normal affect, normal mood Skin exam: Present: warm, dry, intact. 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 EKG Findings - EKG Comments: EKG Findings:: EKG: Normal sinus rhythm, rate of 60, GA interval 134, QRS duration 82, QTC 456, no ST segment elevation, T waves are upright Medical Decision Making - Medical Decision Making 58-year-old female presenting with right-sided chest pain, cough and dyspnea. Patient has history of COPD, she is current smoker. EKG is nonischemic in the emergency department, chest x-ray obtained, negative for focal pneumonia or acute cardiopulmonary disease, patient has normal CBC, normal CMP, troponin and d-dimer are negative. Lipase mildly elevated, given his symptoms and right shoulder. Did obtain an ultrasound which was negative for acute cholecystitis, no gallstones, normal common bile duct. I would prefer the patient stay for treatment of both COPD as well as serial cardiac enzymes and reevaluation. Patient declines. She prefers discharge, will return with worsening or changing symptoms. Prescribed antibiotics, steroids, and albuterol. Please return with worsening or changing symptoms. - Lab Data Result diagrams: 05/31/18 16:17 05/31/18 16:17 Lab Results 05/31/18 05/31/18 05/31/18 Range/Units 16:17 16:17 16:17 WBC 8.6 (3.8-10.6) k/uL RBC 4.89 (3.80-5.40) m/uL Hgb 15.1 (11.4-16.0) gm/dL Hct 44.2 (34.0-46.0) % MCV 90.5 (80.0-100.0) fL MCH 30.8 (25.0-35.0) pg MCHC 34.1 (31.0-37.0) g/dL RDW 14.1 (11.5-15.5) % Plt Count 364 (150-450) k/uL Neutrophils % 70 % Lymphocytes % 20 % Monocytes % 8 % Eosinophils % 1 % Basophils % 1 % Neutrophils # 6.0 (1.3-7.7) k/uL Lymphocytes # 1.7 (1.0-4.8) k/uL Monocytes # 0.7 (0-1.0) k/uL Eosinophils # 0.1 (0-0.7) k/uL Basophils # 0.1 (0-0.2) k/uL PT (9.0-12.0) sec INR (<1.2) APTT (22.0-30.0) sec D-Dimer (<0.60) mg/L FEU Sodium 138 (137-145) mmol/L Potassium 3.4 L (3.5-5.1) mmol/L Chloride 104 (98-107) mmol/L Carbon Dioxide 26 (22-30) mmol/L Anion Gap 8 mmol/L BUN 10 (7-17) mg/dL Creatinine 0.58 (0.52-1.04) mg/dL Est GFR (CKD-EPI)AfAm >90 (>60 ml/min/1.73 sqM) Est GFR (CKD-EPI)NonAf >90 (>60 ml/min/1.73 sqM) Glucose 121 H (74-99) mg/dL Calcium 9.6 (8.4-10.2) mg/dL Magnesium 1.9 (1.6-2.3) mg/dL Total Bilirubin 0.5 (0.2-1.3) mg/dL AST 27 (14-36) U/L ALT 28 (9-52) U/L Alkaline Phosphatase 111 (38-126) U/L Total Creatine Kinase 85 (30-135) U/L CK-MB (CK-2) 0.6 (0.0-2.4) ng/mL CK-MB (CK-2) Rel Index 0.7 Troponin I <0.012 (0.000-0.034) ng/mL NT-Pro-B Natriuret Pep pg/mL Total Protein 7.2 (6.3-8.2) g/dL Albumin 4.3 (3.5-5.0) g/dL Lipase 405 H (23-300) U/L 05/31/18 05/31/18 Range/Units 16:17 16:17 WBC (3.8-10.6) k/uL RBC (3.80-5.40) m/uL Hgb (11.4-16.0) gm/dL Hct (34.0-46.0) % MCV (80.0-100.0) fL MCH (25.0-35.0) pg MCHC (31.0-37.0) g/dL RDW (11.5-15.5) % Plt Count (150-450) k/uL Neutrophils % % Lymphocytes % % Monocytes % % Eosinophils % % Basophils % % Neutrophils # (1.3-7.7) k/uL Lymphocytes # (1.0-4.8) k/uL Monocytes # (0-1.0) k/uL Eosinophils # (0-0.7) k/uL Basophils # (0-0.2) k/uL PT 9.8 (9.0-12.0) sec INR 0.9 (<1.2) APTT 24.2 (22.0-30.0) sec D-Dimer 0.57 (<0.60) mg/L FEU Sodium (137-145) mmol/L Potassium (3.5-5.1) mmol/L Chloride (98-107) mmol/L Carbon Dioxide (22-30) mmol/L Anion Gap mmol/L BUN (7-17) mg/dL Creatinine (0.52-1.04) mg/dL Est GFR (CKD-EPI)AfAm (>60 ml/min/1.73 sqM) Est GFR (CKD-EPI)NonAf (>60 ml/min/1.73 sqM) Glucose (74-99) mg/dL Calcium (8.4-10.2) mg/dL Magnesium (1.6-2.3) mg/dL Total Bilirubin (0.2-1.3) mg/dL AST (14-36) U/L ALT (9-52) U/L Alkaline Phosphatase (38-126) U/L Total Creatine Kinase (30-135) U/L CK-MB (CK-2) (0.0-2.4) ng/mL CK-MB (CK-2) Rel Index Troponin I (0.000-0.034) ng/mL NT-Pro-B Natriuret Pep 555 pg/mL Total Protein (6.3-8.2) g/dL Albumin (3.5-5.0) g/dL Lipase (23-300) U/L Disposition Clinical Impression: Chest pain, COPD exacerbation Disposition: HOME SELF-CARE Condition: Good Instructions (If sedation given, give patient instructions): Chest Pain (ED), COPD (Chronic Obstructive Pulmonary Disease) (ED) Prescriptions: Albuterol Inhaler [Ventolin Hfa Inhaler] 1 - 2 puff INHALATION Q4HR PRN #1 inhaler PRN Reason: Shortness Of Breath Azithromycin [Zithromax Z-pack] 0 mg PO DIRECTED #6 tab predniSONE 50 mg PO DAILY #5 tab Is patient prescribed a controlled substance at d/c from ED?: No Referrals: Lynn Lord MD [Primary Care Provider] - 1-2 days Time of Disposition: 20:33
[2018-05-31 17:18] LABS: Creatine Kinase MB 0.6 ng/mL (0.0-2.4); Troponin I <0.012 ng/mL (0.000-0.034)
--- NOTE | 2018-05-31 17:47 | XR ---
EXAMINATION TYPE: XR chest 2V DATE OF EXAM: 05/31/2018 COMPARISON: 03/02/2014 HISTORY: Chest pain TECHNIQUE: Frontal and lateral views of the chest are obtained. FINDINGS: Heart and mediastinum are normal. Lungs are clear. Diaphragm is normal. Bony thorax appear s normal. There are chest leads. IMPRESSION: Normal chest. No change.
--- NOTE | 2018-05-31 20:10 | US ---
EXAMINATION TYPE: US gallbladder DATE OF EXAM: 05/31/2018 COMPARISON: NONE CLINICAL HISTORY: Pain. Pain EXAM MEASUREMENTS: Liver Length: 13.5 cm Gallbladder Wall: 0.3 cm CBD: 0.4 cm Right Kidney: 9.1 x 5.1 x 3.5 cm Pancreas: Obscured by bowel gas Liver: wnl Gallbladder: wnl Evidence for sonographic Gillis's sign: No CBD: wnl Right Kidney: wnl IMPRESSION: Negative right upper quadrant abdominal sonogram. No gallstones or dilated ducts.
[2018-05-31 21:27] VITALS: BP 126/87; PULSE 80; RESP 16; TEMP 98.2
== END 2018-05-31 21:15 | disposition home or self-care (01) ==
LOC: EC 15:24
DX: J44.1 Chronic obstructive pulmonary disease with (acute) exacerbation (principal); R74.8 Abnormal levels of other serum enzymes; I25.10 Atherosclerotic heart disease of native coronary artery without angina pectoris; K21.9 Gastro-esophageal reflux disease without esophagitis; E78.5 Hyperlipidemia, unspecified; I10 Essential (primary) hypertension; I25.2 Old myocardial infarction; F32.9 Major depressive disorder, single episode, unspecified; F41.9 Anxiety disorder, unspecified; F17.200 Nicotine dependence, unspecified, uncomplicated; Z87.442 Personal history of urinary calculi; Z79.82 Long term (current) use of aspirin; Z95.5 Presence of coronary angioplasty implant and graft; Z79.899 Other long term (current) drug therapy; Z53.29 Procedure and treatment not carried out because of patient's decision for other reasons; Z53.8 Procedure and treatment not carried out for other reasons
CPT/HCPCS: 36415; 94640; 93005; 85379; 83880; 80053; 82550; 82553; 83690; 83735; 84484; 85025; 85610; 85730; 71046; 76705; 99285; 96374; J1100

== ENCOUNTER → 2018-07-15 | Outpatient (CLI) | payer OTHER ==
--- NOTE | 2018-07-15 15:16 | XR ---
EXAMINATION TYPE: XR wrist complete LT DATE OF EXAM: 07/15/2018 CLINICAL HISTORY: Pain after fall injury. TECHNIQUE: Frontal, lateral, scaphoid, and oblique images of the left wrist are obtained. COMPARISON: None FINDINGS: There is no acute fracture/dislocation evident in the left wrist. The joint spaces in the left wrist appear within normal limits. The overlying soft tissue appears unremarkable. IMPRESSION: There is no acute fracture or dislocation in the left wrist.
--- NOTE | 2018-07-15 15:20 | XR ---
EXAMINATION TYPE: XR chest 2V DATE OF EXAM: 07/15/2018 COMPARISON: Chest x-ray May 31, 2018. HISTORY: Fall injury today with pain. TECHNIQUE: Frontal and lateral views of the chest are obtained. FINDINGS: There is no focal air space opacity, pleural effusion, or pneumothorax seen. The cardiac silhouette size is within normal limits. The osseous structures are intact. IMPRESSION: No acute cardiopulmonary process.
--- NOTE | 2018-07-15 15:21 | XR ---
EXAMINATION TYPE: XR thoracic spine complete DATE OF EXAM: 07/15/2018 CLINICAL HISTORY: Upper back pain after fall injury today. TECHNIQUE: Frontal, lateral, and swimmer's view of thoracic spine are obtained. COMPARISON: Chest x-ray May 31, 2018.. FINDINGS: Thoracic spine redemonstrates dextroconvex scoliosis centered mid to lower thoracic spine w ithout evidence of acute fracture or dislocation. Vertebral body heights and disc space heights are preserved. Visualized ribs are unremarkable bilaterally. IMPRESSION: Scoliotic curvature redemonstrated. No acute fracture or dislocation is seen.
== END ==
LOC: RADXRMAIN 14:45
PROVIDERS: ATTEND Emergency Medicine
DX: M41.84 Other forms of scoliosis, thoracic region (principal); S63.502A Unspecified sprain of left wrist, initial encounter; S30.1XXA Contusion of abdominal wall, initial encounter
CPT/HCPCS: 71046; 72072

== ENCOUNTER 2018-07-21 11:10 | Emergency (ER) | payer OTHER ==
[2018-07-21 12:48] LABS: Basophils # (A) 0.1 k/uL (0-0.2); Basophils % (A) 1 %; Eosinophils # (A) 0.2 k/uL (0-0.7); Eosinophils % (A) 4 %; HCT 44.9 % (34.0-46.0); HGB 15.3 gm/dL (11.4-16.0); Lymphocytes # (A) 1.7 k/uL (1.0-4.8); Lymphocytes % (A) 40 %; MCH 31.1 pg (25.0-35.0); MCHC 34.1 g/dL (31.0-37.0); MCV 91.1 fL (80.0-100.0); Mean Platelet Volume 7.4; Monocytes # (A) 0.2 k/uL (0-1.0); Monocytes % (A) 5 %; Neutrophils % (A) 49 %; Platelet Count 271 k/uL (150-450); RBC 4.93 m/uL (3.80-5.40); RDW 15.3 % (11.5-15.5); WBC 4.2 k/uL (3.8-10.6)
--- NOTE | 2018-07-21 12:51 | ED ---
General Adult HPI - General Chief complaint: Abdominal Pain Stated complaint: Abd injury-[facility] Time Seen by Provider: 07/21/18 12:21 Source: patient, RN notes reviewed, old records reviewed Mode of arrival: ambulatory Limitations: no limitations - History of Present Illness Initial comments: [id number] presenting for evaluation of abdominal pain. Pain is predominantly epigastric and right upper quadrant. Patient had a fall 4 days ago and has had increasing pain since the fall. No head or neck trauma. No anticoagulation. She had no pain prior to the fall. She was sent from [facility] for evaluation. Vomiting, denies fever or chills, denies diarrhea. - Related Data Home Medications Medication Instructions Recorded Confirmed Metoprolol Succinate (ER) [Toprol 50 mg PO DAILY 07/06/14 07/21/18 Xl] Famotidine [Pepcid] 20 mg PO DAILY 12/19/15 07/21/18 Aspirin 325 mg PO DAILY 07/10/17 07/21/18 Allopurinol [Zyloprim] 100 mg PO HS 02/09/18 07/21/18 Loratadine [Claritin] 10 mg PO DAILY 02/09/18 07/21/18 Sertraline HCl [Zoloft] 25 mg PO DAILY 02/09/18 07/21/18 Calcium Carbonate [Calcium] 600 mg PO TID 05/31/18 07/21/18 Losartan [Cozaar] 50 mg PO DAILY 05/31/18 07/21/18 Atorvastatin [Lipitor] 80 mg PO HS 07/21/18 07/21/18 Allergies Allergy/AdvReac Type Severity Reaction Status Date / Time No Known Allergies Allergy Verified 07/21/18 12:26 Review of Systems ROS Statement: Those systems with pertinent positive or pertinent negative responses have been documented in the HPI. ROS Other: All systems not noted in ROS Statement are negative. Past Medical History Past Medical History: Asthma, Coronary Artery Disease (CAD), COPD, GERD/Reflux, Hyperlipidemia, Hypertension, Myocardial Infarction (CT), Myocardial Infarction (non Q-wave), Skin Disorder Additional Past Medical History / Comment(s): HX CONCUSSION X3 CHILD. KIDNEY STONE X1. ECZEMA. CT AGE 40; POSS CT 11/24, TOLD NOT BY CHIEF DEPUTY CORONER - BUT STENT REPLACED. LMP 2007. HX COLON POLYPS. Last Myocardial Infarction Date:: 12-07-13 History of Any Multi-Drug Resistant Organisms: None Reported Past Surgical History: Adenoidectomy, Appendectomy, Heart Catheterization With Stent, Orthopedic Surgery, Tonsillectomy, Tubal Ligation Additional Past Surgical History / Comment(s): Cardiac Stent 13 YEARS AGO, STENT REPLACED 12-07-13. ORIF LT ANKLE, HAS PLATE/6 SCREWS. Past Anesthesia/Blood Transfusion Reactions: Previous Problems w/ Anesthesia Additional Past Anesthesia/Blood Transfusion Reaction / Comment(s): HX LOW BLOOD PRESSURE X1 W/ COLONOSCOPY (AFTER CT). Date of Last Stent Placement:: 12/07/13 Past Psychological History: Anxiety, Depression Smoking Status: Current every day smoker Past Alcohol Use History: Occasional Past Drug Use History: None Reported - Past Family History Father Additional Family Medical History / Comment(s): UNK Mother Family Medical History: Cancer Additional Family Medical History / Comment(s): AT AGE 62-CANCER General Exam Limitations: no limitations General appearance: alert, in no apparent distress Head exam: Present: atraumatic, normocephalic Eye exam: Present: normal appearance, PERRL ENT exam: Present: normal exam Neck exam: Present: normal inspection. Absent: tenderness, meningismus Cardiovascular Exam: Present: regular rate, normal rhythm GI/Abdominal exam: Present: soft, tenderness (Epigastric and right upper quadrant tenderness to palpation), other (Anterior abdominal wall ecchymosis). Absent: distended, guarding, rebound Extremities exam: Present: normal inspection, full ROM. Absent: tenderness Neurological exam: Present: alert, oriented X3, CN II-XII intact, normal gait. Absent: motor sensory deficit Psychiatric exam: Present: normal affect, normal mood Skin exam: Present: warm, dry, intact. Absent: cyanosis Course Vital Signs 07/21/18 07/21/18 11:37 14:19 Temperature 97.8 F Pulse Rate 71 69 Respiratory 16 18 Rate Blood Pressure 145/75 128/64 O2 Sat by Pulse 99 98 Oximetry EKG Findings - EKG Comments: EKG Findings:: EKG: Normal sinus rhythm, rate 79, DC interval 136, QRS duration 78, QTC 467. No ischemic changes. Medical Decision Making - Medical Decision Making 58-year-old female presenting status post fall with complaint of abdominal pain. There is mild ecchymosis on the epigastric and left upper quadrant region of the abdomen. Epigastric and right upper quadrant tenderness to palpation, no rebound no guarding, nonsurgical abdomen. CT is obtained, this is negative for acute traumatic injury. Normal CBC, normal CMP. Mild elevation the patient's serum lipase 373. - Lab Data Result diagrams: 07/21/18 12:34 07/21/18 12:34 Lab Results 07/21/18 07/21/18 07/21/18 Range/Units 12:34 12:34 12:34 WBC 4.2 (3.8-10.6) k/uL RBC 4.93 (3.80-5.40) m/uL Hgb 15.3 (11.4-16.0) gm/dL Hct 44.9 (34.0-46.0) % MCV 91.1 (80.0-100.0) fL MCH 31.1 (25.0-35.0) pg MCHC 34.1 (31.0-37.0) g/dL RDW 15.3 (11.5-15.5) % Plt Count 271 (150-450) k/uL Neutrophils % 49 % Lymphocytes % 40 % Monocytes % 5 % Eosinophils % 4 % Basophils % 1 % Neutrophils # 2.0 (1.3-7.7) k/uL Lymphocytes # 1.7 (1.0-4.8) k/uL Monocytes # 0.2 (0-1.0) k/uL Eosinophils # 0.2 (0-0.7) k/uL Basophils # 0.1 (0-0.2) k/uL Sodium 141 (137-145) mmol/L Potassium 3.9 (3.5-5.1) mmol/L Chloride 105 (98-107) mmol/L Carbon Dioxide 26 (22-30) mmol/L Anion Gap 10 mmol/L BUN 9 (7-17) mg/dL Creatinine 0.75 (0.52-1.04) mg/dL Est GFR (CKD-EPI)AfAm >90 (>60 ml/min/1.73 sqM) Est GFR (CKD-EPI)NonAf 89 (>60 ml/min/1.73 sqM) Glucose 87 (74-99) mg/dL Calcium 9.8 (8.4-10.2) mg/dL Total Bilirubin 0.5 (0.2-1.3) mg/dL AST 34 (14-36) U/L ALT 29 (9-52) U/L Alkaline Phosphatase 100 (38-126) U/L Troponin I <0.012 (0.000-0.034) ng/mL Total Protein 7.7 (6.3-8.2) g/dL Albumin 4.4 (3.5-5.0) g/dL Amylase 95 (30-110) U/L Lipase 373 H (23-300) U/L Urine Color Urine Appearance (Clear) Urine pH (5.0-8.0) Ur Specific [place] (1.001-1.035) Urine Protein (Negative) Urine Glucose (UA) (Negative) Urine Ketones (Negative) Urine Blood (Negative) Urine Nitrite (Negative) Urine Bilirubin (Negative) Urine Urobilinogen (<2.0) mg/dL Ur Leukocyte Esterase (Negative) 07/21/18 Range/Units 14:30 WBC (3.8-10.6) k/uL RBC (3.80-5.40) m/uL Hgb (11.4-16.0) gm/dL Hct (34.0-46.0) % MCV (80.0-100.0) fL MCH (25.0-35.0) pg MCHC (31.0-37.0) g/dL RDW (11.5-15.5) % Plt Count (150-450) k/uL Neutrophils % % Lymphocytes % % Monocytes % % Eosinophils % % Basophils % % Neutrophils # (1.3-7.7) k/uL Lymphocytes # (1.0-4.8) k/uL Monocytes # (0-1.0) k/uL Eosinophils # (0-0.7) k/uL Basophils # (0-0.2) k/uL Sodium (137-145) mmol/L Potassium (3.5-5.1) mmol/L Chloride (98-107) mmol/L Carbon Dioxide (22-30) mmol/L Anion Gap mmol/L BUN (7-17) mg/dL Creatinine (0.52-1.04) mg/dL Est GFR (CKD-EPI)AfAm (>60 ml/min/1.73 sqM) Est GFR (CKD-EPI)NonAf (>60 ml/min/1.73 sqM) Glucose (74-99) mg/dL Calcium (8.4-10.2) mg/dL Total Bilirubin (0.2-1.3) mg/dL AST (14-36) U/L ALT (9-52) U/L Alkaline Phosphatase (38-126) U/L Troponin I (0.000-0.034) ng/mL Total Protein (6.3-8.2) g/dL Albumin (3.5-5.0) g/dL Amylase (30-110) U/L Lipase (23-300) U/L Urine Color Yellow Urine Appearance Clear (Clear) Urine pH 7.0 (5.0-8.0) Ur Specific [place] 1.044 H (1.001-1.035) Urine Protein Negative (Negative) Urine Glucose (UA) Negative (Negative) Urine Ketones Negative (Negative) Urine Blood Negative (Negative) Urine Nitrite Negative (Negative) Urine Bilirubin Negative (Negative) Urine Urobilinogen <2.0 (<2.0) mg/dL Ur Leukocyte Esterase Negative (Negative) Disposition Clinical Impression: Abdominal pain Disposition: HOME SELF-CARE Condition: Good Instructions (If sedation given, give patient instructions): Abdominal Pain (ED) Is patient prescribed a controlled substance at d/c from ED?: No Referrals: Lynn Lord MD [Primary Care Provider] - 1-2 days Time of Disposition: 14:44
[2018-07-21 13:11] LABS: ALT 29 U/L (9-52); AST 34 U/L (14-36); Albumin 4.4 g/dL (3.5-5.0); Alkaline Phosphatase 100 U/L (38-126); Amylase 95 U/L (30-110); Anion Gap 10 mmol/L; Blood Urea Nitrogen 9 mg/dL (7-17); Calcium 9.8 mg/dL (8.4-10.2); Carbon Dioxide 26 mmol/L (22-30); Chloride 105 mmol/L (98-107); Glucose 87 mg/dL (74-99); Lipase 373 U/L (23-300); Potassium 3.9 mmol/L (3.5-5.1); Sodium 141 mmol/L (137-145); Total Bilirubin 0.5 mg/dL (0.2-1.3); Total Protein 7.7 g/dL (6.3-8.2)
--- NOTE | 2018-07-21 14:30 | CT ---
EXAMINATION TYPE: CT abdomen pelvis w con DATE OF EXAM: 07/21/2018 HISTORY: Epigastric pain. left flank contusion, post fall CT DLP: 637.4mGycm Automated Exposure Control for Dose Reduction was Utilized. CONTRAST: CT scan of the abdomen and pelvis is performed without oral but with IV Contrast, patient injected wi th 100 mL of Isovue 300. COMPARISON: None. FINDINGS: LUNG BASES: No significant abnormality is appreciated. LIVER/GB: No significant abnormality is appreciated. PANCREAS: No significant abnormality is seen. SPLEEN: No significant abnormality is seen. ADRENALS: No significant abnormality is seen. KIDNEYS: There is focal cortical scar with 6 mm calculus lower pole right kidney coronal image 56. Th ere is focal cortical scar upper pole level right kidney. There is symmetric cortical medullary uptak e and excretion without hydronephrosis bilaterally. BOWEL: Debris-filled stomach suggest recent meal ingestion. Diverticula in the sigmoid colon are pres ent. No suspicious small or large bowel dilatation. UTERUS/ADNEXA: Anteverted uterus is seen. LYMPH NODES: No greater than 1cm abdominal or pelvic lymph nodes are appreciated. OSSEOUS STRUCTURES: Transitional-type vertebra at lumbosacral junction noted. Facet arthropathy lower lumbar spine is seen. OTHER: Moderate calcified plaque of aorta extends into branch vessels. IMPRESSION: No acute posttraumatic finding. Debris filled stomach suggest recent meal ingestion, david ot exclude gastroparesis in the appropriate clinical setting. Correlate clinically.
[2018-07-21 14:38] LABS: Appearance,Urine Clear (Clear); Bilirubin,Urine Negative (Negative); Blood,Urine Negative (Negative); Color,Urine Yellow; Glucose,Urine (UA) Negative (Negative); Ketones,Urine Negative (Negative); Leukocyte Esterase,Urine Negative (Negative); Nitrite,Urine Negative (Negative); Protein,Urine Negative (Negative); Specific Gravity,Urine 1.044 (1.001-1.035); Urobilinogen,Urine <2.0 mg/dL (<2.0)
[2018-07-21 15:11] VITALS: BP 132/64; PULSE 70; RESP 20; TEMP 97.9
== END 2018-07-21 15:00 | disposition home or self-care (01) ==
LOC: EC 11:10
DX: S30.1XXA Contusion of abdominal wall, initial encounter (principal); I25.10 Atherosclerotic heart disease of native coronary artery without angina pectoris; K21.9 Gastro-esophageal reflux disease without esophagitis; E78.5 Hyperlipidemia, unspecified; I10 Essential (primary) hypertension; I25.2 Old myocardial infarction; F41.9 Anxiety disorder, unspecified; F32.9 Major depressive disorder, single episode, unspecified; F17.200 Nicotine dependence, unspecified, uncomplicated; Z79.82 Long term (current) use of aspirin; Z79.899 Other long term (current) drug therapy; Z95.5 Presence of coronary angioplasty implant and graft; Z90.89 Acquired absence of other organs; W19.XXXA Unspecified fall, initial encounter; Y92.69 Other specified industrial and construction area as the place of occurrence of the external cause; Y99.0 Civilian activity done for income or pay
CPT/HCPCS: 36415; 74177; 80053; 81003; 82150; 83690; 84484; 85025; 93005; 99285

== ENCOUNTER 2018-10-15 23:08 | Observation (INO) | payer OTHER ==
[2018-10-15 23:14] VITALS: RESP 16
[2018-10-15] MEDS ORDERED: SODIUM CHLORIDE 0.9% 1,000 ML IV STA (23:24)
[2018-10-15 23:52] LABS: Basophils # (A) 0.1 k/uL (0-0.2); Basophils % (A) 2 %; Eosinophils # (A) 0.2 k/uL (0-0.7); Eosinophils % (A) 4 %; HCT 30.7 % (34.0-46.0); HGB 10.8 gm/dL (11.4-16.0); Lymphocytes # (A) 2.4 k/uL (1.0-4.8); Lymphocytes % (A) 54 %; MCH 32.3 pg (25.0-35.0); MCHC 35.1 g/dL (31.0-37.0); MCV 92.1 fL (80.0-100.0); Mean Platelet Volume 7.4; Monocytes # (A) 0.2 k/uL (0-1.0); Monocytes % (A) 4 %; Neutrophils # (A) 1.4 k/uL (1.3-7.7); Neutrophils % (A) 32 %; Platelet Count 259 k/uL (150-450); RBC 3.33 m/uL (3.80-5.40); RDW 14.7 % (11.5-15.5); WBC 4.4 k/uL (3.8-10.6)
[2018-10-16 00:04] LABS: ALT 15 U/L (9-52); AST 26 U/L (14-36); African American GFR (CKD) >90 (>60 ml/min/1.73 sqM); Albumin 4.2 g/dL (3.5-5.0); Alkaline Phosphatase 111 U/L (38-126); Anion Gap 8 mmol/L; Blood Urea Nitrogen 13 mg/dL (7-17); Calcium 9.1 mg/dL (8.4-10.2); Carbon Dioxide 27 mmol/L (22-30); Chloride 108 mmol/L (98-107); Glucose 86 mg/dL (74-99); Phosphorus 3.8 mg/dL (2.5-4.5); Potassium 4.5 mmol/L (3.5-5.1); Sodium 143 mmol/L (137-145); Total Bilirubin 0.2 mg/dL (0.2-1.3); Total Protein 7.1 g/dL (6.3-8.2)
--- NOTE | 2018-10-16 00:16 | CT ---
EXAM: CT Head Without Intravenous Contrast CLINICAL HISTORY: Fall. TECHNIQUE: Axial computed tomography images of the head/brain without intravenous contrast. Coronal and sagittal reformations provided. CTDI is 45.2 mGy and DLP is 979.1 mGy-cm. This CT exam was performed using one or more of the following dose reduction techniques: automated exposure control, adjustment of the mA and/or kV according to patient size, and/or use of iterative reconstruction technique. COMPARISON: CT dated 12/13/2017. FINDINGS: Brain: Unremarkable. No acute intracranial hemorrhage. No significant white matter disease. No edema. No mass effect or midline shift. Mild atrophy. Ventricles: Unremarkable. No ventriculomegaly. Bones/joints: Unremarkable. No acute fracture. Soft tissues: Unremarkable. Sinuses: Mild opacity in right maxillary sinus. Remainder of visualized paranasal sinuses are clear. Mastoid air cells: Unremarkable as visualized. No mastoid effusion. IMPRESSION: No acute intracranial hemorrhage, skull fracture, or other acute intracranial abnormality. EXAM: CT Cervical Spine Without Intravenous Contrast CLINICAL HISTORY: Fall. TECHNIQUE: Axial computed tomography images of the cervical spine without intravenous contrast. Coronal and sagittal reformations provided. CTDI is 9.6 mGy and DLP is 262.6 mGy-cm. This CT exam was performed using one or more of the following dose reduction techniques: automated exposure control, adjustment of the mA and/or kV according to patient size, and/or use of iterative reconstruction technique. COMPARISON: No relevant prior studies available. FINDINGS: Vertebrae: No acute fracture or traumatic malalignment of the cervical spine. Tiny cervical junction is intact. Facet joints are normally aligned. There is straightening of the cervical spine. Multilevel degenerative changes are present. Discs/spinal canal/neural foramina: Disc space narrowing at C4-5, C5-6 and C6-7. No evidence of significant spinal canal stenosis. Soft tissues: Unremarkable as visualized. IMPRESSION: 1. No acute fracture or traumatic subluxation of the cervical spine. 2. Degenerative changes of the cervical spine.
[2018-10-16 00:20] LABS: Amphetamine Screen,Urine Not Detected (NotDetected); Appearance,Urine Cloudy (Clear); Bacteria,Urine Rare /hpf; Barbiturate Screen,Urine Not Detected (NotDetected); Benzodiazepines Screen,Urine Not Detected (NotDetected); Bilirubin,Urine Negative (Negative); Blood,Urine Negative (Negative); Cocaine Screen,Urine Not Detected (NotDetected); Color,Urine Light Yellow; Glucose,Urine (UA) Negative (Negative); Hyaline Casts,Urine 1 /lpf (0-2); Ketones,Urine Negative (Negative); Leukocyte Esterase,Urine Trace (Negative); Methadone Screen, Urine Not Detected (NotDetected); Mucus,Urine Rare /hpf; Nitrite,Urine Negative (Negative); Opiate Screen,Urine Not Detected (NotDetected); Oxycodone Screen, Urine Not Detected (NotDetected); Phencyclidine Screen,Urine Not Detected (NotDetected); Protein,Urine Negative (Negative); RBC,Urine 2 /hpf (0-5); Specific Gravity,Urine 1.005 (1.001-1.035); Squamous Epithelial Cell,Urine 6 /hpf (0-4); Tricyclic Antidepressant,Urine Not Detected (NotDetected); Urn Cannabinoid Scrn Not Detected (NotDetected); Urobilinogen,Urine <2.0 mg/dL (<2.0); WBC,Urine 2 /hpf (0-5)
[2018-10-16 00:39] LABS: Alcohol 370 mg/dL
--- NOTE | 2018-10-16 01:11 | ED ---
Alcohol HPI - General Source: EMS Mode of arrival: EMS Limitations: no limitations <Wendie Shabazz - Last Filed: 10/16/18 02:29> <Margot Vance - Last Filed: 10/17/18 05:01> - General Chief Complaint: Alcohol Stated Complaint: ETOH Time Seen by Provider: 10/15/18 23:24 - History of Present Illness Initial Comments: 58-year-old female presenting for alcohol Intoxication. Patient was found [place] ground at a park. They state the patient was intoxicated. Patient family had left her there. Patient has no complaints. She states "she is fine and wants to go home". Patient was unconscious when EMS arrived. ROS negative, patient denies any recent fever, chills, shortness of breath, chest pain, back pain, abdominal pain, nausea or vomiting, numbness or tingling, dysuria or hematuria, constipation or diarrhea, headaches or visual changes, or any other complaints. (Wendie Shabazz) - Related Data Home Medications Medication Instructions Recorded Confirmed Metoprolol Succinate (ER) [Toprol 50 mg PO DAILY 07/06/14 10/16/18 Xl] Famotidine [Pepcid] 20 mg PO DAILY 12/19/15 10/16/18 Aspirin 325 mg PO DAILY 07/10/17 10/16/18 Allopurinol [Zyloprim] 100 mg PO HS 02/09/18 10/16/18 Loratadine [Claritin] 10 mg PO DAILY 02/09/18 10/16/18 Sertraline HCl [Zoloft] 25 mg PO DAILY 02/09/18 10/16/18 Calcium Carbonate [Calcium] 600 mg PO TID 05/31/18 07/21/18 Losartan [Cozaar] 50 mg PO DAILY 05/31/18 07/21/18 Atorvastatin [Lipitor] 80 mg PO HS 07/21/18 10/16/18 Allergies Allergy/AdvReac Type Severity Reaction Status Date / Time No Known Allergies Allergy Verified 07/21/18 12:26 Review of Systems ROS Other: All systems not noted in ROS Statement are negative. <Wendie Shabazz - Last Filed: 10/16/18 02:29> ROS Other: All systems not noted in ROS Statement are negative. <Margot Vance - Last Filed: 10/17/18 05:01> ROS Statement: Those systems with pertinent positive or pertinent negative responses have been documented in the HPI. Past Medical History Past Medical History: Asthma, Coronary Artery Disease (CAD), COPD, GERD/Reflux, Hyperlipidemia, Hypertension, Myocardial Infarction ([place]), Myocardial Infarction (non Q-wave), Skin Disorder Additional Past Medical History / Comment(s): HX CONCUSSION X3 CHILD. KIDNEY STONE X1. ECZEMA. [place] AGE 40; POSS [place] 11/24, TOLD NOT BY MATERIALS SCHEDULER - BUT STENT REPLACED. LMP 2007. HX COLON POLYPS. Last Myocardial Infarction Date:: 12-07-13 History of Any Multi-Drug Resistant Organisms: None Reported Past Surgical History: Adenoidectomy, Appendectomy, Heart Catheterization With Stent, Orthopedic Surgery, Tonsillectomy, Tubal Ligation Additional Past Surgical History / Comment(s): Cardiac Stent 13 YEARS AGO, STENT REPLACED 12-07-13. ORIF LT ANKLE, HAS PLATE/6 SCREWS. Past Anesthesia/Blood Transfusion Reactions: Previous Problems w/ Anesthesia Additional Past Anesthesia/Blood Transfusion Reaction / Comment(s): HX LOW BLOOD PRESSURE X1 W/ COLONOSCOPY (AFTER [place]). Date of Last Stent Placement:: 12/07/13 Past Psychological History: Anxiety, Depression Smoking Status: Current every day smoker Past Alcohol Use History: Occasional Past Drug Use History: None Reported - Past Family History Father Additional Family Medical History / Comment(s): UNK Mother Family Medical History: Cancer Additional Family Medical History / Comment(s): AT AGE 62-CANCER <Wendie Shabazz - Last Filed: 10/16/18 02:29> General Exam Limitations: no limitations <Wendie Shabazz - Last Filed: 10/16/18 02:29> - General Exam Comments Initial Comments: General: The patient is awake and alert, in no distress, and does not appear acutely ill. Eye: +3 mm pupils are equal, round and reactive to light, extra-ocular movemen ts are intact. No nystagmus. There is normal conjunctiva bilaterally. No signs of icterus. Ears, nose, mouth and throat: There are moist mucous membranes and no oral les ions. No raccoon or Galeano sign. Neck: The neck is supple, there is no tenderness or JVD. Cardiovascular: There is a regular rate and rhythm. No murmur, rub or gallop is appreciated. Respiratory: Lungs are clear to auscultation, respirations are non-labored, breath sounds are equal. No wheezes, stridor, rales, or rhonchi. Gastrointestinal: Soft, non-distended, non-tender abdomen without masses or organomegaly noted. There is no rebound or guarding present. Musculoskeletal: Normal ROM, no tenderness. Strength 5/5. Sensation intact. Pulses equal bilaterally 2+. Neurological: A&O x 3. CN II-XII intact, There are no obvious motor or sensory deficits. Coordination appears grossly intact. Speech is normal. Skin: Skin is warm and dry and no rashes or lesions are noted. Psychiatric: Appears intoxicated smells of alcohol. (Wendie Shabazz) Course Vital Signs 10/15/18 10/16/18 23:09 02:11 Temperature 98.4 F Pulse Rate 71 88 Respiratory 16 16 Rate Blood Pressure 94/77 98/55 O2 Sat by Pulse 96 99 Oximetry Medical Decision Making - Lab Data Result diagrams: 10/15/18 23:36 10/15/18 23:36 <Wendie Shabazz - Last Filed: 10/16/18 02:29> - Lab Data Result diagrams: 10/15/18 23:36 10/15/18 23:36 <Margot Vance - Last Filed: 10/17/18 05:01> - Medical Decision Making Patient presenting for ETOH intoxication. No complaints. No evidence of trauma on physical examination. CT of the brain and C-spine was obtained given history of possible fall. No evidence of acute intracranial or osseous process. Patient is walking talking no focal neurological deficits. Patient alcohol int oxication 370. Patient will be admitted for ETOH intoxication as she has no ride home. Patient agreeable with admission. Spoke with Dr. Bales who accepted patient admission. (Wendie Shabazz) I was available for consultation in the emergency department. The history and ph ysical exam were done by the midlevel provider. I was consulted for this patient's care. I reviewed the case with the midlevel provider and based on their presentation of the patient, I agree with the assessment, medical decision making and plan of care as documented. Chart was dictated using [employer]ADE dictation software. Attempts were made to correct any dictation errors however some typographical errors may persist. (Margot Vance) - Lab Data Lab Results 10/15/18 10/15/18 10/15/18 Range/Units 23:30 23:36 23:36 WBC 4.4 (3.8-10.6) k/uL RBC 3.33 L (3.80-5.40) m/uL Hgb 10.8 L (11.4-16.0) gm/dL Hct 30.7 L (34.0-46.0) % MCV 92.1 (80.0-100.0) fL MCH 32.3 (25.0-35.0) pg MCHC 35.1 (31.0-37.0) g/dL RDW 14.7 (11.5-15.5) % Plt Count 259 (150-450) k/uL Neutrophils % 32 % Lymphocytes % 54 % Monocytes % 4 % Eosinophils % 4 % Basophils % 2 % Neutrophils # 1.4 (1.3-7.7) k/uL Lymphocytes # 2.4 (1.0-4.8) k/uL Monocytes # 0.2 (0-1.0) k/uL Eosinophils # 0.2 (0-0.7) k/uL Basophils # 0.1 (0-0.2) k/uL Sodium 143 (137-145) mmol/L Potassium 4.5 (3.5-5.1) mmol/L Chloride 108 H (98-107) mmol/L Carbon Dioxide 27 (22-30) mmol/L Anion Gap 8 mmol/L BUN 13 (7-17) mg/dL Creatinine 0.72 (0.52-1.04) mg/dL Est GFR (CKD-EPI)AfAm >90 (>60 ml/min/1.73 sqM) Est GFR (CKD-EPI)NonAf >90 (>60 ml/min/1.73 sqM) Glucose 86 (74-99) mg/dL Calcium 9.1 (8.4-10.2) mg/dL Phosphorus 3.8 (2.5-4.5) mg/dL Magnesium 2.0 (1.6-2.3) mg/dL Total Bilirubin 0.2 (0.2-1.3) mg/dL AST 26 (14-36) U/L ALT 15 (9-52) U/L Alkaline Phosphatase 111 (38-126) U/L Total Protein 7.1 (6.3-8.2) g/dL Albumin 4.2 (3.5-5.0) g/dL Urine Color Light Yellow Urine Appearance Cloudy H (Clear) Urine pH 5.0 (5.0-8.0) Ur Specific [place] 1.005 (1.001-1.035) Urine Protein Negative (Negative) Urine Glucose (UA) Negative (Negative) Urine Ketones Negative (Negative) Urine Blood Negative (Negative) Urine Nitrite Negative (Negative) Urine Bilirubin Negative (Negative) Urine Urobilinogen <2.0 (<2.0) mg/dL Ur Leukocyte Esterase Trace H (Negative) Urine RBC 2 (0-5) /hpf Urine WBC 2 (0-5) /hpf Ur Squamous Epith Cells 6 H (0-4) /hpf Urine Bacteria Rare H (None) /hpf Hyaline Casts 1 (0-2) /lpf Urine Mucus Rare H (None) /hpf Urine Opiates Screen Not Detected (NotDetected) Ur Oxycodone Screen Not Detected (NotDetected) Urine Methadone Screen Not Detected (NotDetected) Ur Propoxyphene Screen Not Detected (NotDetected) Ur Barbiturates Screen Not Detected (NotDetected) U Tricyclic Antidepress Not Detected (NotDetected) Ur Phencyclidine Scrn Not Detected (NotDetected) Ur Amphetamines Screen Not Detected (NotDetected) U Methamphetamines Scrn Not Detected (NotDetected) U Benzodiazepines Scrn Not Detected (NotDetected) Urine Cocaine Screen Not Detected (NotDetected) U Marijuana (THC) Screen Not Detected (NotDetected) Serum Alcohol 370 H* mg/dL Disposition Is patient prescribed a controlled substance at d/c from ED?: No Time of Disposition: 02:29 Decision to Admit Reason: Admit from EC Decision Date: 10/16/18 Decision Time: 02:29 <Wendie Shabazz - Last Filed: 10/16/18 02:29> <Margot Vance P - Last Filed: 10/17/18 05:01> Clinical Impression: Alcohol intoxication Disposition: HOME SELF-CARE Condition: Good
[2018-10-16] MEDS ORDERED: SODIUM CHLORIDE 0.9% 500 ML 500 ML IV ONE (01:35)
[2018-10-16] MEDS ORDERED: LORazepam 2 MG/ML INJ IV PRN ×3 (01:36)
[2018-10-16] MEDS ORDERED: THIAMINE 100 MG/ML 2 ML VIAL IM STA (01:36)
[2018-10-16] MEDS ORDERED: NALOXONE 0.4 MG/ML 1 ML VIAL IV PRN (01:36)
[2018-10-16] MEDS ORDERED: SODIUM CHLORIDE 0.9% 1,000 ML IV SCH (06:00)
[2018-10-16 06:05] VITALS: BP 92/57; PULSE 69; TEMP 97.6
--- NOTE | 2018-10-16 06:39 | P.HPIM ---
History of Present Illness H&P Date: 10/16/18 Chief Complaint: Patient fell and found on the ground 58-year-old female with history of heart disease status post stents. Patient admits to heavy drinking since she normally drinks over the weekend she only takes beers but she drinks strong ones. She says she was walking back home when she tripped and fell she was found by police intoxicated and was brought to the hospital she said that she was with family and friends however obviously to have left her. She was couple minutes away from home she was ready to crawl back home if that when he took but instead she was brought to the hospital. EMS reported that she was unconscious when they arrived. In the ED she was found to be intoxicated with alcohol level above 300 for which she was admitted until she is sober She denies any chest pain or trouble breathing she denies any medical concerns at this point denies any fevers or chills. Patient denies any GI bleeding. Labs were unremarkable in the ED CT of the head was negative for any acute process Review of Systems Pertinent positives as noted in HPI. All other systems were reviewed and are negative Past Medical History Past Medical History: Asthma, Coronary Artery Disease (CAD), COPD, GERD/Reflux, Hyperlipidemia, Hypertension, Myocardial Infarction ([place]), Myocardial Infarction (non Q-wave), Skin Disorder Additional Past Medical History / Comment(s): HX CONCUSSION X3 CHILD. KIDNEY STONE X1. ECZEMA. [place] AGE 40; POSS [place] 11/24, TOLD NOT BY MANAGER RADIATION - BUT STENT REPLACED. LMP 2007. HX COLON POLYPS. Last Myocardial Infarction Date:: 12-07-13 History of Any Multi-Drug Resistant Organisms: None Reported Past Surgical History: Adenoidectomy, Appendectomy, Heart Catheterization With Stent, Orthopedic Surgery, Tonsillectomy, Tubal Ligation Additional Past Surgical History / Comment(s): Cardiac Stent 13 YEARS AGO, STENT REPLACED 12-07-13. ORIF LT ANKLE, HAS PLATE/6 SCREWS. Past Anesthesia/Blood Transfusion Reactions: Previous Problems w/ Anesthesia Additional Past Anesthesia/Blood Transfusion Reaction / Comment(s): HX LOW BLOOD PRESSURE X1 W/ COLONOSCOPY (AFTER [place]). Date of Last Stent Placement:: 12/07/13 Past Psychological History: Anxiety, Depression Smoking Status: Current every day smoker Past Alcohol Use History: Occasional Additional Past Alcohol Use History / Comment(s): SMOKING 35 YEARS, 1 PPD. Past Drug Use History: None Reported Additional Drug Use History / Comment(s): TEENAGER SMOKED MARIJUANA, NONE NOW. - Past Family History Father Additional Family Medical History / Comment(s): UNK Mother Family Medical History: Cancer Additional Family Medical History / Comment(s): AT AGE 62-CANCER Medications and Allergies Home Medications Medication Instructions Recorded Confirmed Type Metoprolol Succinate (ER) [Toprol 50 mg PO DAILY 07/06/14 10/16/18 History Xl] Famotidine [Pepcid] 20 mg PO DAILY 12/19/15 10/16/18 History Aspirin 325 mg PO DAILY 07/10/17 10/16/18 History Allopurinol [Zyloprim] 100 mg PO HS 02/09/18 10/16/18 History Loratadine [Claritin] 10 mg PO DAILY 02/09/18 10/16/18 History Sertraline HCl [Zoloft] 25 mg PO DAILY 02/09/18 10/16/18 History Calcium Carbonate [Calcium] 600 mg PO TID 05/31/18 07/21/18 History Losartan [Cozaar] 50 mg PO DAILY 05/31/18 07/21/18 History Atorvastatin [Lipitor] 80 mg PO HS 07/21/18 10/16/18 History Allergies Allergy/AdvReac Type Severity Reaction Status Date / Time No Known Allergies Allergy Verified 07/21/18 12:26 Physical Exam Vitals: Vital Signs Temp Pulse Resp BP Pulse Ox 10/16/18 02:59 16 10/16/18 02:11 88 16 98/55 99 10/15/18 23:09 98.4 F 71 16 94/77 96 Intake and Output 10/15/18 10/15/18 10/16/18 14:59 22:59 06:59 Other: Weight 61.235 kg Constitutional: No acute distress, conversant, pleasant Eyes: Anicteric sclerae, moist conjunctiva, no lid-lag Pupils equal round reactive to light ENMT: NC/AT Oropharynx clear, no erythema, exudates Neck: Supple, FROM, no masses, or JVD No carotid bruits No thyromegaly Lungs: Clear to auscultation Clear to percussion Normal respiratory effort, no accessory muscle use Cardiovascular: Heart regular in rate and rhythm, No murmurs, gallops, or rubs No peripheral edema Abdominal: Soft Nontender, no guarding, rebound or rigidity Abdomen moving with respiration Normoactive bowel sounds No hepatomegaly, No splenomegaly No palpable mass No abdominal wall hernia noted Skin: Normal temperature, tone, texture, turgor No induration No subcutaneous nodules No rash, lesions No ulcers Extremities: No digital cyanosis No clubbing Pedal pulses intact and symmetrical Radial pulses intact and symmetrical No calf tenderness Psychiatric: Alert and oriented to person, place and time Appropriate affect fair judgment Neuro Muscles Strength 5/5 in all 4 extremities Sensation to light touch grossly present throughout Cranial nerves II-XII grossly intact No focal sensory deficits Lymphatics: no palpable cervical or supraclavicular , or inguinal lymph nodes Results CBC & Chem 7: 10/15/18 23:36 10/15/18 23:36 Labs: Abnormal Lab Results - Last 24 Hours (Table) 10/15/18 10/15/18 10/15/18 Range/Units 23:30 23:36 23:36 RBC 3.33 L (3.80-5.40) m/uL Hgb 10.8 L (11.4-16.0) gm/dL Hct 30.7 L (34.0-46.0) % Chloride 108 H (98-107) mmol/L Urine Appearance Cloudy H (Clear) Ur Leukocyte Esterase Trace H (Negative) Ur Squamous Epith Cells 6 H (0-4) /hpf Urine Bacteria Rare H (None) /hpf Urine Mucus Rare H (None) /hpf Serum Alcohol 370 H* mg/dL Thrombosis Risk Factor Assmnt - Choose All That Apply Any of the Below Risk Factors Present?: Yes Each Factor Represents 1 point: Age 41-60 years, Medical pt on bed rest Other Risk Factors: No Other congenital or acquired thrombophilia - If yes, enter type in comment: No Thrombosis Risk Factor Assessment Total Risk Factor Score: 2 Thrombosis Risk Factor Assessment Level: Low Risk Assessment and Plan Assessment: 58-year-old female with history of coronary artery disease admitted under observation with anticipated length of stay less than 48 hours due to severe alcohol intoxication until sheshe is sober Plan: Acute severe alcohol intoxication secondary to alcohol abuse Benzos per CIWA scale IV fluid hydration Thiamine Full precautions Bedside sitter Anemia most likely chronic Patient denies any active GI bleeding Continue to monitor Chronic conditions COPD currently compensated History of CAD status post stents Hypertension Hyperlipidemia Continue home meds CODE STATUS: Full code DVT prophylaxis: Heparin Discussed with: Patient, ER, RN Anticipated discharge: Less than [address]: Home A total of 60* minutes was spent on the care of this complex patient more than 50% of the time was spent in counseling and care coordination.
[2018-10-16] MEDS ORDERED: HEPARIN SODIUM,PORCINE 5,000 UNIT/ML 1 ML VIAL SQ SCH (08:00)
[2018-10-16] MEDS ORDERED: FAMOTIDINE 20 MG TAB PO SCH (09:00)
[2018-10-16] MEDS ORDERED: METOPROLOL SUCCINATE (ER) 50 MG TAB.ER.24H PO SCH (09:00)
[2018-10-16] MEDS ORDERED: ASPIRIN 325 MG TAB PO SCH (09:00)
[2018-10-16] MEDS ORDERED: THIAMINE 100 MG TAB PO SCH (17:00)
[2018-10-16] MEDS ORDERED: ATORVASTATIN 80 MG TAB PO SCH (21:00)
== END 2018-10-16 08:05 | disposition left against medical advice (07) ==
LOC: EC 23:08 → 3NMEDONC 10-16 01:46
PROVIDERS: ADMIT Internal Medicine; ATTEND Internal Medicine
DX: F10.129 Alcohol abuse with intoxication, unspecified (principal); D64.9 Anemia, unspecified; K21.9 Gastro-esophageal reflux disease without esophagitis; J44.9 Chronic obstructive pulmonary disease, unspecified; I25.10 Atherosclerotic heart disease of native coronary artery without angina pectoris; F32.9 Major depressive disorder, single episode, unspecified; F17.200 Nicotine dependence, unspecified, uncomplicated; F41.9 Anxiety disorder, unspecified; I10 Essential (primary) hypertension; L30.9 Dermatitis, unspecified; E78.5 Hyperlipidemia, unspecified; Z79.82 Long term (current) use of aspirin; Z79.899 Other long term (current) drug therapy; Z86.010 Personal history of colon polyps; I25.2 Old myocardial infarction; Z87.442 Personal history of urinary calculi; Z87.820 Personal history of traumatic brain injury; Z95.5 Presence of coronary angioplasty implant and graft; Z90.49 Acquired absence of other specified parts of digestive tract; Z98.51 Tubal ligation status; Z80.9 Family history of malignant neoplasm, unspecified; Y90.8 Blood alcohol level of 240 mg/100 ml or more; Z53.21 Procedure and treatment not carried out due to patient leaving prior to being seen by health care provider
CPT/HCPCS: 82075; 96361 ×2; 96372; 96374; 99285; 36415; 80053; 83735; 84100; 85025; 81001; 80306; 72125; 70450; G0378; G0480; J2060; J3411; 80320

== ENCOUNTER 2019-07-12 10:47 | Emergency (ER) | payer OTHER ==
[2019-07-12 10:52] VITALS: BP 162/99; PULSE 125; RESP 19; TEMP 98.2
[2019-07-12] MEDS ORDERED: predniSONE 50 MG TAB PO STA (11:16)
[2019-07-12] MEDS ORDERED: CEPHALEXIN 500MG STARTER PACK 4 CAP BTL PO STA (11:16)
--- NOTE | 2019-07-12 11:21 | ED ---
Skin/Abscess/FB HPI - General Chief complaint: Skin/Abscess/Foreign Body Stated complaint: rash/SOB Time Seen by Provider: 07/12/19 11:04 Source: patient, RN notes reviewed, old records reviewed Mode of arrival: ambulatory Limitations: no limitations - History of Present Illness Initial comments: Patient is a 59-year-old female presents emergency room today with periodic rash over her neck and arms back and ears. She reports it's been worsening for the past few weeks. She reports that she has been diagnosed with eczema on the past. She has not seemed seen a cafe operator in quite some time. She states that it seems to be related as well after she is certain hair dye her hair is touching. She complains of mean lesion over her left neck. Patient states that she is using [id number] steroid cream and has had some improvement but is also burning on the open areas. - Related Data Home Medications Medication Instructions Recorded Confirmed Metoprolol Succinate (ER) [Toprol 50 mg PO DAILY 07/06/14 10/16/18 Xl] Famotidine [Pepcid] 20 mg PO DAILY 12/19/15 10/16/18 Aspirin 325 mg PO DAILY 07/10/17 10/16/18 Allopurinol [Zyloprim] 100 mg PO HS 02/09/18 10/16/18 Loratadine [Claritin] 10 mg PO DAILY 02/09/18 10/16/18 Sertraline HCl [Zoloft] 25 mg PO DAILY 02/09/18 10/16/18 Calcium Carbonate [Calcium] 600 mg PO TID 05/31/18 07/21/18 Losartan [Cozaar] 50 mg PO DAILY 05/31/18 07/21/18 Atorvastatin [Lipitor] 80 mg PO HS 07/21/18 10/16/18 Previous Rx's Medication Instructions Recorded Cephalexin [Keflex] 500 mg PO Q8HR 3 Days #21 cap 07/12/19 Hydrocortisone 1% Lotion 1 applic TOPICAL BID #1 bottle 07/12/19 Mupirocin 2% Oint [Bactroban 2% 1 applic TOPICAL TID #60 gm 07/12/19 Oint] predniSONE [Deltasone] 20 mg PO DIRECTED #12 tab 07/12/19 Allergies Allergy/AdvReac Type Severity Reaction Status Date / Time No Known Allergies Allergy Verified 07/21/18 12:26 Review of Systems ROS Statement: Those systems with pertinent positive or pertinent negative responses have been documented in the HPI. ROS Other: All systems not noted in ROS Statement are negative. Past Medical History Past Medical History: Asthma, Coronary Artery Disease (CAD), COPD, GERD/Reflux, Hyperlipidemia, Hypertension, Myocardial Infarction ([place]), Myocardial Infarction (non Q-wave), Skin Disorder Additional Past Medical History / Comment(s): HX CONCUSSION X3 CHILD. KIDNEY STONE X1. ECZEMA. [place] AGE 40; POSS [place] 11/24, TOLD NOT BY STAIN APPLICATOR - BUT STENT REPLACED. LMP 2008. HX COLON POLYPS. Last Myocardial Infarction Date:: 12-07-13 History of Any Multi-Drug Resistant Organisms: None Reported Past Surgical History: Adenoidectomy, Appendectomy, Heart Catheterization With Stent, Orthopedic Surgery, Tonsillectomy, Tubal Ligation Additional Past Surgical History / Comment(s): Cardiac Stent 13 YEARS AGO, STENT REPLACED 12-07-13. ORIF LT ANKLE, HAS PLATE/6 SCREWS. Past Anesthesia/Blood Transfusion Reactions: Previous Problems w/ Anesthesia Additional Past Anesthesia/Blood Transfusion Reaction / Comment(s): HX LOW BLOOD PRESSURE X1 W/ COLONOSCOPY (AFTER [place]). Date of Last Stent Placement:: 12/07/13 Past Psychological History: Anxiety, Depression Smoking Status: Current every day smoker Past Alcohol Use History: Occasional Past Drug Use History: None Reported - Past Family History Father Additional Family Medical History / Comment(s): UNK Mother Family Medical History: Cancer Additional Family Medical History / Comment(s): AT AGE 62-CANCER General Exam - General Exam Comments Initial Comments: 59-year-old female. Alert and oriented. No distress. Limitations: no limitations General appearance: alert, in no apparent distress Head exam: Present: atraumatic, normocephalic, normal inspection Eye exam: Present: normal appearance, PERRL, EOMI. Absent: scleral icterus, conjunctival injection, periorbital swelling ENT exam: Present: normal exam, mucous membranes moist Neck exam: Present: normal inspection. Absent: tenderness, meningismus, lymphadenopathy Respiratory exam: Present: normal lung sounds bilaterally. Absent: respiratory distress, wheezes, rales, rhonchi, stridor Cardiovascular Exam: Present: regular rate, normal rhythm, normal heart sounds. Absent: systolic murmur, diastolic murmur, rubs, gallop, clicks GI/Abdominal exam: Present: soft, normal bowel sounds. Absent: distended, tenderness, guarding, rebound, rigid Extremities exam: Present: normal inspection, full ROM, normal capillary refill. Absent: tenderness, pedal edema, joint swelling, calf tenderness Back exam: Present: normal inspection Neurological exam: Present: alert, oriented X3, CN II-XII intact Psychiatric exam: Present: normal affect, normal mood Skin exam: Present: warm, dry, intact, normal color, rash ( is erythematous plaque over the left neck with excoriations. Muscle areas of erythematous papules over her arms legs trunk and face. Evidence of excoriation and skin over ears. Appears the patient's been scratching at this device scanning concern for atopic dermatitis.) Course Vital Signs 07/12/19 10:48 Temperature 98.2 F Pulse Rate 125 H Respiratory 19 Rate Blood Pressure 162/99 O2 Sat by Pulse 99 Oximetry Medical Decision Making - Medical Decision Making 51-year-old female presents with acute rash for the past few weeks. Complains of pruritic skin. At this time Patient has evidence of atopic dermatitis. Discussed that since its widespread to treat for secondary bacterial infection with Keflex. Patient also be started on steroids and antibiotic cream and steroid ointment. I discussed following up with dermatology. Disposition Clinical Impression: Eczema Disposition: HOME SELF-CARE Condition: Good Instructions (If sedation given, give patient instructions): Dermatitis (ED) Additional Instructions: Follow-up with your primary care physician and dermatology. Patient should try to keep the area clean and dry and apply the steroid lotion as prescribed and use the antibiotic over the open areas. Patient should take the steroids and antibiotic. Follow-up with dermatology. Prescriptions: Mupirocin 2% Oint [Bactroban 2% Oint] 1 applic TOPICAL TID #60 gm predniSONE [Deltasone] 20 mg PO DIRECTED #12 tab Hydrocortisone 1% Lotion 1 applic TOPICAL BID #1 bottle Cephalexin [Keflex] 500 mg PO Q8HR 3 Days #21 cap Is patient prescribed a controlled substance at d/c from ED?: No Referrals: Lynn Lord MD [Primary Care Provider] - 1-2 days Keara Brown MD [STAFF PHYSICIAN] - 1-2 days Time of Disposition: 11:17
== END 2019-07-12 11:28 | disposition home or self-care (01) ==
LOC: EC 10:47
DX: L20.9 Atopic dermatitis, unspecified (principal); A49.9 Bacterial infection, unspecified; I25.10 Atherosclerotic heart disease of native coronary artery without angina pectoris; E78.5 Hyperlipidemia, unspecified; I10 Essential (primary) hypertension; I25.2 Old myocardial infarction; F32.9 Major depressive disorder, single episode, unspecified; F41.9 Anxiety disorder, unspecified; F17.200 Nicotine dependence, unspecified, uncomplicated; Z79.82 Long term (current) use of aspirin; Z79.899 Other long term (current) drug therapy; Z87.442 Personal history of urinary calculi; Z95.5 Presence of coronary angioplasty implant and graft
CPT/HCPCS: 99283; J7512

== ENCOUNTER 2019-09-17 16:54 | Observation (INO) | payer OTHER ==
[2019-09-17] MEDS ORDERED: SODIUM CHLORIDE 0.9% 1,000 ML IV STA (16:59)
[2019-09-17] MEDS ORDERED: LABETALOL 5 MG/ML VIAL MDV IVP STA (17:00)
[2019-09-17] MEDS ORDERED: MORPHINE SULFATE 4 MG/ML SYRINGE IVP STA (17:00)
--- NOTE | 2019-09-17 17:24 | ED ---
Chest Pain HPI - General Chief Complaint: Chest Pain Stated Complaint: Chest Pain Time Seen by Provider: 09/17/19 16:58 Source: patient, RN notes reviewed, old records reviewed Mode of arrival: EMS Limitations: no limitations - History of Present Illness Initial Comments: This is a 71-year-old female DF for evaluation patient with us for severe chest pain left-sided stabbing chest pain that began when she was up this morning. Patient's daughter blood pressure be elevated not taking any home medications. Patient has persistent chest pain especially currently. Mild nausea no vomiting severely severe pain does not take home pain medications his been off all medications for about 6 months MD Complaint: chest pain (Left-sided chest pain stabbing to the back) -: hour(s) Onset: during rest Pain Location: left chest Pain Radiation: back Severity: severe Severity scale (1-10): 9 Quality: tightness, sharp Consistency: constant Improves With: nothing Worsens With: nothing Anginal Symptoms: nausea Treatments Prior to Arrival: none - Related Data Home Medications Medication Instructions Recorded Confirmed Metoprolol Succinate (ER) [Toprol 50 mg PO DAILY 07/06/14 10/16/18 Xl] Famotidine [Pepcid] 20 mg PO DAILY 12/19/15 10/16/18 Aspirin 325 mg PO DAILY 07/10/17 10/16/18 Allopurinol [Zyloprim] 100 mg PO HS 02/09/18 10/16/18 Loratadine [Claritin] 10 mg PO DAILY 02/09/18 10/16/18 Sertraline HCl [Zoloft] 25 mg PO DAILY 02/09/18 10/16/18 Calcium Carbonate [Calcium] 600 mg PO TID 05/31/18 07/21/18 Losartan [Cozaar] 50 mg PO DAILY 05/31/18 07/21/18 Atorvastatin [Lipitor] 80 mg PO HS 07/21/18 10/16/18 Previous Rx's Medication Instructions Recorded Cephalexin [Keflex] 500 mg PO Q8HR 3 Days #21 cap 07/12/19 Hydrocortisone 1% Lotion 1 applic TOPICAL BID #1 bottle 07/12/19 Mupirocin 2% Oint [Bactroban 2% 1 applic TOPICAL TID #60 gm 07/12/19 Oint] predniSONE [Deltasone] 20 mg PO DIRECTED #12 tab 07/12/19 Allergies Allergy/AdvReac Type Severity Reaction Status Date / Time No Known Allergies Allergy Verified 07/21/18 12:26 Review of Systems ROS Statement: Those systems with pertinent positive or pertinent negative responses have been documented in the HPI. ROS Other: All systems not noted in ROS Statement are negative. EKG Findings - EKG Comments: EKG Findings:: EKG shows normal sinus a rate of 87, TX 132 QRS 78 QTc 434 Past Medical History Past Medical History: Asthma, Coronary Artery Disease (CAD), COPD, GERD/Reflux, Hyperlipidemia, Hypertension, Myocardial Infarction (ID), Myocardial Infarction (non Q-wave), Skin Disorder Additional Past Medical History / Comment(s): HX CONCUSSION X3 CHILD. KIDNEY STONE X1. ECZEMA. ID AGE 40; POSS ID 11/24, TOLD NOT BY SUPERVISOR INSPECTION DEPARTMENT - BUT STENT REPLACED. LMP 2007. HX COLON POLYPS. Last Myocardial Infarction Date:: 12-07-13 History of Any Multi-Drug Resistant Organisms: None Reported Past Surgical History: Adenoidectomy, Appendectomy, Heart Catheterization With Stent, Orthopedic Surgery, Tonsillectomy, Tubal Ligation Additional Past Surgical History / Comment(s): Cardiac Stent 13 YEARS AGO, STENT REPLACED 12-07-13. ORIF LT ANKLE, HAS PLATE/6 SCREWS. Past Anesthesia/Blood Transfusion Reactions: Previous Problems w/ Anesthesia Additional Past Anesthesia/Blood Transfusion Reaction / Comment(s): HX LOW BLOOD PRESSURE X1 W/ COLONOSCOPY (AFTER ID). Date of Last Stent Placement:: 12/07/13 Past Psychological History: Anxiety, Depression Smoking Status: Current every day smoker Past Alcohol Use History: Occasional Past Drug Use History: None Reported - Past Family History Father Additional Family Medical History / Comment(s): UNK Mother Family Medical History: Cancer Additional Family Medical History / Comment(s): AT AGE 62-CANCER General Exam Limitations: no limitations General appearance: alert, in no apparent distress Head exam: Present: atraumatic, normocephalic, normal inspection Eye exam: Present: normal appearance, PERRL, EOMI. Absent: scleral icterus, conjunctival injection, periorbital swelling ENT exam: Present: normal exam, mucous membranes moist Neck exam: Present: normal inspection. Absent: tenderness, meningismus, lymphadenopathy Respiratory exam: Present: normal lung sounds bilaterally. Absent: respiratory distress, wheezes, rales, rhonchi, stridor Cardiovascular Exam: Present: regular rate, normal rhythm, normal heart sounds. Absent: systolic murmur, diastolic murmur, rubs, gallop, clicks GI/Abdominal exam: Present: soft, normal bowel sounds. Absent: distended, tenderness, guarding, rebound, rigid Extremities exam: Present: normal inspection, full ROM, normal capillary refill. Absent: tenderness, pedal edema, joint swelling, calf tenderness Back exam: Present: normal inspection Neurological exam: Present: alert, oriented X3, CN II-XII intact Psychiatric exam: Present: normal affect, normal mood Skin exam: Present: warm, dry, intact, normal color. Absent: rash Course Vital Signs 09/17/19 09/17/19 17:05 17:56 Temperature 98.2 F Pulse Rate 93 74 Respiratory 18 18 Rate Blood Pressure 178/85 151/79 O2 Sat by Pulse 97 97 Oximetry - Reevaluation(s) Reevaluation #1: 09/17/19 18:26 Medical record is reviewed Reevaluation #2: 09/17/19 18:26 Patient has persistent pain currently - Consultations Consultation #1: Spoke with PMH were agreeable for admission Chest Pain MDM - MDM 51 female with history of ID and stent coming in with chest pain blood pressure elevated now controlled off all medications. Patient be admitted for chest pain treatment and evaluation, CT chest is negative for acute disease Critical Care Time Critical Care Time: Yes Total Critical Care Time: 31 Disposition Clinical Impression: Chest pain Disposition: ADMITTED IP TO THIS HOSP Condition: Undetermined Instructions (If sedation given, give patient instructions): Chest Pain (ED) Is patient prescribed a controlled substance at d/c from ED?: No Referrals: None,Stated [Primary Care Provider] - 1-2 days
[2019-09-17 17:27] LABS: Basophils # (A) 0.1 k/uL (0-0.2); Basophils % (A) 1 %; Eosinophils # (A) 0.1 k/uL (0-0.7); Eosinophils % (A) 1 %; HCT 47.8 % (34.0-46.0); HGB 15.8 gm/dL (11.4-16.0); Lymphocytes # (A) 1.7 k/uL (1.0-4.8); Lymphocytes % (A) 26 %; MCH 31.4 pg (25.0-35.0); MCV 95.1 fL (80.0-100.0); Mean Platelet Volume 7.4; Monocytes # (A) 0.5 k/uL (0-1.0); Monocytes % (A) 8 %; Neutrophils # (A) 3.9 k/uL (1.3-7.7); Neutrophils % (A) 62 %; Platelet Count 255 k/uL (150-450); RBC 5.02 m/uL (3.80-5.40); RDW 13.4 % (11.5-15.5); WBC 6.4 k/uL (3.8-10.6)
[2019-09-17 17:49] LABS: ALT 170 U/L (4-34); AST 208 U/L (14-36); African American GFR (CKD) >90 (>60 ml/min/1.73 sqM); Alkaline Phosphatase 118 U/L (38-126); Anion Gap 13 mmol/L; Blood Urea Nitrogen 3 mg/dL (7-17); Calcium 10.3 mg/dL (8.4-10.2); Carbon Dioxide 22 mmol/L (22-30); Chloride 98 mmol/L (98-107); Glucose 76 mg/dL (74-99); Magnesium 1.4 mg/dL (1.6-2.3); Non-African American GFR(CKD) >90 (>60 ml/min/1.73 sqM); Potassium 3.7 mmol/L (3.5-5.1); Sodium 133 mmol/L (137-145); Total Bilirubin 0.5 mg/dL (0.2-1.3); Total Protein 8.2 g/dL (6.3-8.2)
[2019-09-17 17:53] LABS: INR 0.9 (<1.2); Partial Thromboplastin Time 22.6 sec (22.0-30.0); Prothrombin Time 9.5 sec (9.0-12.0)
--- NOTE | 2019-09-17 17:54 | CT ---
EXAMINATION TYPE: CT angio chest DATE OF EXAM: 09/17/2019 COMPARISON: None HISTORY: chest pain CT DLP: 260.5 mGycm Automated exposure control for dose reduction was used. CONTRAST: Performed with IV Contrast, patient injected with 68cc mL of Isovue 370. There are 3-D post processed images. The lungs are clear of consolidation. There is slight coarsening of interstitial markings. There is n o evidence of a pulmonary mass. There is no pericardial effusion. There is no pleural effusion. There are no hilar masses. There is no mediastinal adenopathy. Thoracic aorta is intact with no sign of an eurysm or dissection. Ascending aorta measures 3.5 cm. There is normal contrast opacification of the pulmonary arteries. There are no filling defects. The bony thorax is intact. There is no compression fracture in the thoracic spine. There is some fatt y infiltration of the liver. IMPRESSION: No evidence of pulmonary embolism. Mild fatty infiltration of the liver.
[2019-09-17 18:13] LABS: D-Dimer 0.99 mg/L FEU (<0.60)
[2019-09-17] MEDS ORDERED: HEPARIN SODIUM,PORCINE 5,000 UNIT/ML 1 ML VIAL IV PRN (18:24)
[2019-09-17] MEDS ORDERED: NITROGLYCERIN SL TABS 0.4 MG TAB SUBLINGUAL PRN (18:24)
[2019-09-17] MEDS ORDERED: HEPARIN SODIUM,PORCINE 5,000 UNIT/ML 1 ML VIAL IV ONE (18:24)
[2019-09-17] MEDS ORDERED: HEPARIN SOD,PORK IN 0.45% NACL 25,000 UNIT in 0.45% NACL 1 250ML.BAG IV SCH (18:30)
[2019-09-17] MEDS: MAGNESIUM SULFATE-D5W PMX 1 GM in DEXTROSE/WATER 1 100ML.BAG IVPB SCH ×2 (20:21→21:16)
[2019-09-17] MEDS ORDERED: METOPROLOL TARTRATE 50 MG TAB PO SCH (21:00)
[2019-09-17] MEDS ORDERED: NICOTINE 21MG/24HR PATCH TRANSDERM STA (21:19)
[2019-09-17] MEDS ORDERED: TEMAZEPAM 15 MG CAP PO PRN (21:21)
[2019-09-17] MEDS ORDERED: LORazepam 1 MG TAB PO PRN (21:21)
[2019-09-17] MEDS ORDERED: HYDROcodone/APAP 5-325MG 1 EACH TAB PO PRN (21:21)
--- NOTE | 2019-09-17 23:30 | HP ---
HISTORY AND PHYSICAL DATE OF SERVICE: 09/17/2019 CHIEF COMPLAINT: Chest pain. HISTORY OF PRESENT ILLNESS: This 59-year-old woman with a past medical history of multiple medical problems including myocardial infarction about 6 years ago, stents, history of CAD, history of COPD, history of GERD, hypertension, hyperlipidemia, history of appendectomy, not being followed by any primary physician in the outpatient setting, had a stress test about 3 years ago. Currently the patient is complaining of left-sided stabbing pain which is felt in the left side of the chest which is radiating to the medial part of the left arm while the patient woke up this morning. The pain is mild to moderate intensity and the patient reports that this is the same feeling the patient got when the patient had myocardial infarction about six years ago. The patient also had some left-sided lower chest pain which is rather different and the patient describes with abdominal discomfort at this time. There is no history of fever or rigors. No headache, loss of consciousness, seizures. In the ER the initial troponins were negative. The patient had elevated AST, ALT, and hypomagnesemia was also noted with hyponatremia. The EKG showed no acute changes and a chest CT was also done which showed no evidence of pulmonary embolism. Mild fatty infiltration of liver was noted. PAST MEDICAL HISTORY: History of asthma, COPD, GERD, hypertension, hyperlipidemia, myocardial infarction, appendectomy, CAD stent, myocardial infarction. MEDICATIONS ARE: Omeprazole 20 mg daily, aspirin 320 mg daily. ALLERGIES: None. FAMILY HISTORY: History of cancer in the family. SOCIAL HISTORY: History of smoking and alcohol about 3-4 drinks per day according to her. REVIEW OF SYSTEMS: ENT No history of diminished hearing or vision. CARDIOVASCULAR As mentioned earlier. RESPIRATORY As mentioned earlier. GI No nausea, vomiting, or diarrhea. No dysuria or hematuria. NERVOUS No numbness or weakness. ALLERGY/IMMUNOLOGY No asthma or hayfever. MUSCULOSKELETAL As mentioned earlier. HEMATOLOGY/ONCOLOGY Negative. ENDOCRINE No history of diabetes or hypothyroidism. CONSTITUTIONAL As mentioned earlier. DERMATOLOGY Negative. RHEUMATOLOGY Negative, PSYCHIATRY As mentioned earlier PHYSICAL EXAM: Patient is alert, oriented x3. Pulse 70, blood pressure 148/79, respiration 18, temperature 98.2, pulse ox 99% on 2 L. HEENT: Conjunctivae normal. Oral mucosa moist. NECK: No jugular venous distention. No lymph node enlargement. CARDIOVASCULAR: S1, S2. RESPIRATORY: Diminished breath sounds at the bases. No rhonchi, no crackles. ABDOMEN: Soft, nontender. No mass palpable. LEGS: No edema, no swelling. NERVOUS SYSTEM: Higher functions mentioned earlier. Moves all four limbs. No focal motor or sensory deficits. LYMPHATICS: No lymph node in neck or axilla. SKIN: No rash. JOINTS: No active deforming arthropathy. LABS: CBC within normal. Sodium 133, potassium 3.7, calcium 10.3, magnesium 1.4, AST is 208 and ALT is 170. Lipase is 369. ASSESSMENT: 1. Left-sided chest pain and left arm pain for evaluation, possible unstable angina. 2. History of coronary artery disease, myocardial infarction, stents. 3. Hyponatremia. 4. Increased AST, ALT with mild hepatitis. 5. Hypomagnesemia. 6. Elevated lipase. 7. History of asthma, chronic obstructive pulmonary disease. 8. History of gastroesophageal reflux disease. 9. Hypertension. 10.Hyperlipidemia. 11.History of eczema. 12.History of nephrolithiasis. 13.History of appendectomy. 14.History of adenoidectomy. 15.History of smoking. 16.Anxiety, depression. 17.History of ETOH. RECOMMENDATIONS AND DISCUSSION: In this 59-year-old woman who presented with multiple complex medical issues, we will monitor the patient closely, continue the current medication. I will follow the unstable angina protocol and will recommend to consult Cardiology to rule out the possibility of myocardial infarction. Otherwise, I would also recommend repeat labs. We will use Ativan p.r.n. If the patient has significant signs of withdrawal then CIWA protocol may be used. Otherwise, medication reconciliation will be done. Overall prognosis guarded. I also recommend the patient follow up with a primary physician closely after discharge. MMODL / IJN: [id number] /
[2019-09-18 03:33] LABS: Basophils # (A) 0.1 k/uL (0-0.2); Basophils % (A) 1 %; Eosinophils # (A) 0.1 k/uL (0-0.7); Eosinophils % (A) 2 %; HCT 44.7 % (34.0-46.0); HGB 15.3 gm/dL (11.4-16.0); Lymphocytes # (A) 1.9 k/uL (1.0-4.8); Lymphocytes % (A) 42 %; MCH 33.1 pg (25.0-35.0); MCHC 34.2 g/dL (31.0-37.0); MCV 96.9 fL (80.0-100.0); Mean Platelet Volume 7.6; Monocytes # (A) 0.3 k/uL (0-1.0); Monocytes % (A) 7 %; Neutrophils % (A) 46 %; Platelet Count 214 k/uL (150-450); RBC 4.61 m/uL (3.80-5.40); WBC 4.4 k/uL (3.8-10.6)
[2019-09-18 04:05] LABS: ALT 127 U/L (4-34); AST 125 U/L (14-36); African American GFR (CKD) >90 (>60 ml/min/1.73 sqM); Albumin 3.9 g/dL (3.5-5.0); Alkaline Phosphatase 112 U/L (38-126); Anion Gap 5 mmol/L; Blood Urea Nitrogen 7 mg/dL (7-17); Calcium 9.7 mg/dL (8.4-10.2); Carbon Dioxide 26 mmol/L (22-30); Chloride 103 mmol/L (98-107); Cholesterol 233 mg/dL (<200); Glucose 120 mg/dL (74-99); Non-African American GFR(CKD) >90 (>60 ml/min/1.73 sqM); Potassium 4.2 mmol/L (3.5-5.1); Sodium 134 mmol/L (137-145); Total Bilirubin 0.5 mg/dL (0.2-1.3); Total Protein 6.7 g/dL (6.3-8.2); Triglycerides 114 mg/dL (<150)
[2019-09-18 04:22] LABS: LDL Cholesterol,Calculated 31 mg/dL (0-99)
[2019-09-18 04:27] LABS: HDL Cholesterol 179 mg/dL (40-60)
[2019-09-18] MEDS ORDERED: ASPIRIN 325 MG TAB PO SCH (09:00)
[2019-09-18] MEDS ORDERED: NON FORMULARY DRUG (Omeprazole [Omeprazole] 20 MG) PO SCH (09:00)
[2019-09-18] MEDS: ASPIRIN 81 MG PO SCH (09:54)
[2019-09-18] MEDS: LOSARTAN 50 MG TAB PO SCH ×2 (09:54→20:23)
[2019-09-18] MEDS: MULTIVITAMINS, THERA 1 EACH TAB PO SCH (09:55)
[2019-09-18] MEDS: PANTOPRAZOLE 40 MG TABLET PO SCH (09:55)
--- NOTE | 2019-09-18 10:05 | P.CRDCN ---
History of Present Illness Consult date: 09/18/19 Consult reason: chest pain History of present illness: The patient is a 59-year-old female with past medical history of coronary artery disease, myocardial infarction in 2013, COPD, GERD, hypertension, hyperlipidemia, and current smoker, who presented to the hospital with new onset chest discomfort. She states it was a sharp discomfort in her left pectoral area, with radiating numbness down her left arm. With time pain became a squeezing sensation across her chest and did not resolve with aspirin therapy. She states she did monitor her blood pressure at home prior to presenting to the emergency room and it was 220/117. She states she has not been taking her heart medications in the last 6 months and has not been following up with a primary care provider for clinic coordinator. She states the chest discomfort has now resolved. EKG shows sinus mechanism without acute ST or T-wave changes. Cardiac enzymes are negative 3. CT of the chest negative for pulmonary embolism. No acute cardiopulmonary process. Thoracic aorta is intact without aneurysm or dissection. Vital signs show blood pressure 172/82, pulse 90, SpO2 98% on room air, afebrile. PAST MEDICAL HISTORY: coronary artery disease, myocardial infarction in 2014, COPD, GERD, hypertension, hyperlipidemia, current smoker REVIEW OF SYSTEMS: No fever or chills. No cough or expectoration. No diaphoresis. Patient denies headache, dizziness, blurred vision, double vision. Patient denies any stomach discomfort. No nausea, vomiting. No hematochezia. No hematemesis. Denies any black stools or blood in his stools. Denies dysuria or hematuria. No muscle weakness or numbness. PHYSICAL EXAMINATION: This is a 59-year-old female in no apparent distress at the time of my examination. HEENT: Head is atraumatic, normocephalic. Pupils are equal, round. Sclerae anicteric. Conjunctivae are clear. Mucous membranes of the mouth are moist. Neck is supple. There is no jugular venous distention. No carotid bruit is heard. CHEST EXAMINATION: Inspiratory wheezes and rhonchi. No chest wall tenderness is noted on palpation or with deep breathing. HEART EXAMINATION: Heart regular rate and rhythm. S1, S2 heard. No murmurs, gall ops or rub. ABDOMEN: Soft, nontender. Bowel sounds are heard. No organomegaly noted. EXTREMITIES: 2+ peripheral pulses with no evidence of peripheral edema and no calf tenderness noted. NEUROLOGIC EXAMINATION: Patient is awake, alert and oriented x3. LABORATORY DATA: WBC 4.4, hemoglobin 15.3, hematocrit 44.7, platelets 214, sodium 134, potassium 4.2, BUN 7, creatinine 0.61, magnesium 2.2, AST 125, ALT 127, triglycerides 114, LDL 31, HDL 179, lipase 369, troponins less than 0.0123 FINAL ASSESSMENT AND PLAN: #1 chest discomfort, negative cardiac enzymes #2 history of coronary artery disease, multiple stents #3 hypertension, uncontrolled #4 dyslipidemia #5 current smoker, 2 packs per day #6 COPD #7 elevated d-dimer, CT of the chest negative PLAN: We will start the patient on losartan 50 mg twice a day. Once the blood pressures well controlled and she continues to be asymptomatic, we will proceed with outpatient followup and stress testing. Past Medical History Past Medical History: Asthma, Coronary Artery Disease (CAD), COPD, GERD/Reflux, Hyperlipidemia, Hypertension, Myocardial Infarction (SD), Myocardial Infarction (non Q-wave), Skin Disorder Additional Past Medical History / Comment(s): HX CONCUSSION X3 CHILD. KIDNEY STONE X1. ECZEMA. SD AGE 40; POSS SD 11/24, TOLD NOT BY RN LACTATION - BUT STENT REPLACED. LMP 2007. HX COLON POLYPS. Last Myocardial Infarction Date:: 12-07-13 History of Any Multi-Drug Resistant Organisms: None Reported Past Surgical History: Adenoidectomy, Appendectomy, Heart Catheterization With Stent, Orthopedic Surgery, Tonsillectomy, Tubal Ligation Additional Past Surgical History / Comment(s): Cardiac Stent 13 YEARS AGO, STENT REPLACED 12-07-13. ORIF LT ANKLE, HAS PLATE/6 SCREWS. Past Anesthesia/Blood Transfusion Reactions: Previous Problems w/ Anesthesia Additional Past Anesthesia/Blood Transfusion Reaction / Comment(s): HX LOW BLOOD PRESSURE X1 W/ COLONOSCOPY (AFTER SD). Date of Last Stent Placement:: 12/07/13 Past Psychological History: Anxiety, Depression Smoking Status: Current every day smoker Past Alcohol Use History: Occasional Additional Past Alcohol Use History / Comment(s): SMOKING 35 YEARS, 1 PPD. Past Drug Use History: None Reported Additional Drug Use History / Comment(s): TEENAGER SMOKED MARIJUANA, NONE N OW. - Past Family History Father Additional Family Medical History / Comment(s): UNK Mother Family Medical History: Cancer Additional Family Medical History / Comment(s): AT AGE 62-CANCER Medications and Allergies Home Medications Medication Instructions Recorded Confirmed Type Aspirin 325 mg PO DAILY 07/10/17 09/17/19 History Omeprazole 20 mg PO DAILY 09/17/19 09/17/19 History Allergies Allergy/AdvReac Type Severity Reaction Status Date / Time No Known Allergies Allergy Verified 09/17/19 18:47 Physical Exam Vitals: Vital Signs Temp Pulse Pulse Resp BP BP Pulse Ox 09/18/19 08:00 98.2 F 90 18 172/82 98 09/18/19 03:30 97.8 F 80 16 149/69 09/18/19 00:00 98.2 F 69 14 111/56 09/17/19 20:00 86 16 09/17/19 19:32 98.2 F 86 16 160/79 96 09/17/19 19:10 98.2 F 70 18 148/79 99 09/17/19 19:09 70 18 148/79 99 09/17/19 17:56 74 18 151/79 97 09/17/19 17:05 98.2 F 93 18 178/85 97 Intake and Output 09/17/19 09/18/19 09/18/19 22:59 06:59 14:59 Intake Total 480 68.791 Output Total 240 480 Balance 240 -411.209 Intake: Intake, IV Titration 68.791 Amount Heparin Sod,Pork in 0.45% 68.791 NaCl 25,000 unit In 0.45 % NaCl 1 250ml.bag @ 12 UNITS/KG/HR 7.773 mls/hr IV .Q24H [facility] Rx#: [id number] Oral 480 Output: Urine 240 480 Other: # Voids 1 1 Weight 64.773 kg Results 09/18/19 03:19 09/18/19 03:19 Cardiac Enzymes 09/17/19 09/17/19 09/17/19 Range/Units 17:07 17:07 23:05 AST 208 H (14-36) U/L Troponin I <0.012 <0.012 (0.000-0.034) ng/mL 09/18/19 09/18/19 Range/Units 03:19 03:19 AST 125 H (14-36) U/L Troponin I <0.012 (0.000-0.034) ng/mL Coagulation 09/17/19 09/18/19 Range/Units 17:07 03:19 PT 9.5 (9.0-12.0) sec APTT 22.6 35.6 H (22.0-30.0) sec Lipids 09/18/19 Range/Units 03:19 Triglycerides 114 (<150) mg/dL Cholesterol 233 H (<200) mg/dL HDL Cholesterol 179 H (40-60) mg/dL CBC 09/17/19 09/18/19 Range/Units 17: 03:19 WBC 6.4 4.4 (3.8-10.6) k/uL RBC 5.02 4.61 (3.80-5.40) m/uL Hgb 15.8 15.3 (11.4-16.0) gm/dL Hct 47.8 H 44.7 (34.0-46.0) % Plt Count 255 214 (150-450) k/uL Comprehensive Metabolic Panel 09/17/19 09/18/19 Range/Units 17:07 03:19 Sodium 133 L 134 L (137-145) mmol/L Potassium 3.7 4.2 (3.5-5.1) mmol/L Chloride 98 103 (98-107) mmol/L Carbon Dioxide 22 26 (22-30) mmol/L BUN 3 L 7 (7-17) mg/dL Creatinine 0.58 0.61 (0.52-1.04) mg/dL Glucose 76 120 H (74-99) mg/dL Calcium 10.3 H 9.7 (8.4-10.2) mg/dL AST 208 H 125 H (14-36) U/L ALT 170 H 127 H (4-34) U/L Alkaline Phosphatase 118 112 (38-126) U/L Total Protein 8.2 6.7 (6.3-8.2) g/dL Albumin 5.0 3.9 (3.5-5.0) g/dL Current Medications Generic Name Dose Route Start Last Admin Trade Name Freq PRN Reason Stop Dose Admin Hydrocodone Bitart/Acetaminophen 1 each 09/17/19 21:21 Brunson 5-325 PO Q6HR PRN Pain Aspirin 81 mg 09/18/19 09:00 Aspirin PO DAILY [facility] Atorvastatin Calcium 40 mg 09/18/19 21:00 Lipitor PO HS [facility] Lorazepam 0.5 mg 09/17/19 21:21 Ativan PO Q3HR PRN Anxiety Losartan Potassium 50 mg 09/18/19 09:00 Cozaar PO BID [facility] Multivitamins 1 each 09/18/19 12:00 Theragran PO DAILY@1200 [facility] Nitroglycerin 0.4 mg 09/17/19 18:24 Nitrostat SUBLINGUAL Q5M PRN Chest Pain Pantoprazole Sodium 40 mg 09/18/19 07:30 Protonix PO AC-BRKFST [facility] Temazepam 15 mg 09/17/19 21:21 Restoril PO HS PRN Insomnia Intake and Output 09/17/19 09/18/19 09/18/19 22:59 06:59 14:59 Intake Total 480 68.791 Output Total 240 480 Balance 240 -411.209 Intake: Intake, IV Titration 68.791 Amount Heparin Sod,Pork in 0.45% 68.791 NaCl 25,000 unit In 0.45 % NaCl 1 250ml.bag @ 12 UNITS/KG/HR 7.773 mls/hr IV .Q24H [facility] Rx#: [id number] Oral 480 Output: Urine 240 480 Other: # Voids 1 1 Weight 64.773 kg 09/18/19 03:19 09/18/19 03:19
[2019-09-18] MEDS: NICOTINE 21MG/24HR PATCH TRANSDERM SCH (15:43)
[2019-09-18] MEDS ORDERED: ATORVASTATIN 40 MG TAB PO SCH (21:00)
--- NOTE | 2019-09-18 23:44 | PN ---
PROGRESS NOTE DATE OF SERVICE: 09/18/2019 This 59-year-old woman who was admitted with chest pain is being closely monitored. Myocardial infarction has been ruled out. Cardiology planning a 2D echo. No chest pain. No palpitations. No fever. The patient has elevated cholesterol with LDL 31 and cholesterol is 233. PHYSICAL EXAMINATION: On exam, alert and oriented x3. The pulse is 72, blood pressure 162/71, respirations 16, temperature 98.1, pulse ox 100% on room air. HEENT: Conjunctivae normal. NECK: No jugular venous distention. CARDIOVASCULAR: S1, S2 muffled. RESPIRATORY: Breath sounds diminished at the bases. No rhonchi, no crackles. ABDOMEN: Soft, nontender. LEGS: No edema, no swelling. NERVOUS SYSTEM: No focal deficits. LABS: CBC within normal limits. Sodium 134. AST, ALT noted. ASSESSMENT: 1. Left-sided chest pain and left arm pain for possible unstable angina. 2. History of coronary artery disease, myocardial infarction, stents. 3. Hyponatremia. 4. Increased AST, ALT, mild hepatitis. 5. Hypomagnesemia. 6. Elevated lipase. 7. History of asthma, chronic obstructive pulmonary disease. 8. History of gastroesophageal reflux disease. 9. Hypertension. 10.Hyperlipidemia. 11.History of eczema. 12.History of nephrolithiasis. 13.History of appendectomy. 14.History of adenoidectomy. 15.History of smoking. 16.History of anxiety, depression. 17.History of EtOH. RECOMMENDATIONS AND DISCUSSION: This 59-year-old woman presented with multiple complex medical issues, we will monitor the patient closely, continue the current medications. Otherwise, follow closely with Cardiology. Repeat labs. Coronavirus is negative. Possible stress test. Guarded prognosis. Further recommendations to follow. MMODL / IJN: [id number] /
[2019-09-19 08:02] VITALS: BP 139/87; PULSE 89; RESP 18; TEMP 97.8
[2019-09-19 08:18] LABS: Basophils # (A) 0.1 k/uL (0-0.2); Basophils % (A) 1 %; Eosinophils # (A) 0.1 k/uL (0-0.7); Eosinophils % (A) 3 %; HCT 51.2 % (34.0-46.0); HGB 16.8 gm/dL (11.4-16.0); Lymphocytes # (A) 1.6 k/uL (1.0-4.8); Lymphocytes % (A) 43 %; MCH 32.1 pg (25.0-35.0); MCHC 32.9 g/dL (31.0-37.0); MCV 97.6 fL (80.0-100.0); Mean Platelet Volume 7.7; Monocytes # (A) 0.3 k/uL (0-1.0); Monocytes % (A) 8 %; Neutrophils # (A) 1.6 k/uL (1.3-7.7); Neutrophils % (A) 43 %; Platelet Count 219 k/uL (150-450); RBC 5.25 m/uL (3.80-5.40); RDW 13.4 % (11.5-15.5); WBC 3.8 k/uL (3.8-10.6)
[2019-09-19 08:25] LABS: ALT 134 U/L (4-34); AST 126 U/L (14-36); African American GFR (CKD) >90 (>60 ml/min/1.73 sqM); Albumin 4.7 g/dL (3.5-5.0); Alkaline Phosphatase 101 U/L (38-126); Anion Gap 8 mmol/L; Blood Urea Nitrogen 6 mg/dL (7-17); Calcium 10.5 mg/dL (8.4-10.2); Carbon Dioxide 25 mmol/L (22-30); Chloride 104 mmol/L (98-107); Glucose 103 mg/dL (74-99); Non-African American GFR(CKD) >90 (>60 ml/min/1.73 sqM); Potassium 4.2 mmol/L (3.5-5.1); Sodium 137 mmol/L (137-145); Total Bilirubin 0.9 mg/dL (0.2-1.3); Total Protein 7.8 g/dL (6.3-8.2)
--- NOTE | 2019-09-19 10:36 | P.PN ---
Subjective This is a pleasant 59-year-old female past medical history significant for COPD, hypertension, dyslipidemia, coronary artery disease s/p r evascularization and chronic nicotine dependence. She has not been taking her prescribed medication for the recent months. She is seen and examined in no acute distress. She denies any further symptoms of chest pain or shortness of breath. She admits to a daily morning productive cough that is chronic and ongoing. She last underwent cardiac catheterization in 2013 revealing 99% stenosis in the mid LAD at the distal end of the previously placed stent, circumflex artery is normal, RCA is normal. She underwent successful PCI of the LAD at that time. Blood pressure this morning 139/87 heart rate 89 afebrile and maintaining oxygen saturation on room air. Laboratory data reviewed, WBC 3.8, hemoglobin 16.8, platelets 219, sodium 137, potassium 4.2, creatinine 0.55, LDL 31, HDL 179, AST 126 and ALT 134. Currently maintained on aspirin 81 mg daily, atorvastatin 40 mg daily and losartan 50 mg twice a day. GENERAL: Well-appearing, well-nourished and in no acute distress. NECK: Supple without JVD or thyromegaly. LUNGS: Scattered rhonchi and expiratory wheezes throughtout. No rales. Respirati on equal and unlabored. HEART: Regular rate and rhythm without murmurs, rubs or gallops. S1 and S2 heard. EXTREMITIES: Normal range of motion, no edema. No clubbing or cyanosis. Peripheral pulses intact. ASSESSMENT Chest pain, an acute coronary event has been ruled out History of coronary artery disease status post revascularization 2013 Hypertension, uncontrolled Transaminitis Dyslipidemia COPD Heavy chronic nicotine dependence Noncompliance PLAN Discontinue atorvastatin for elevated livers enzymes greater then 3 times the normal limit. Ongoing medical evaluation for etiology of transaminitis. Continue losartan at 50 mg BID and aspirin 81 mg daily. Proceed with stress echocardiogram to assess for stress induced ischemia. Smoking cessation highly recommended. Follow up in the office with Dr. Anders in 2 weeks. Nurse Practitioner note has been reviewed, I agree with a documented findings and plan of care. Patient was seen and examined. Objective - Vital Signs Vital signs: Vital Signs Temp 97.9 F 09/19/19 04:00 Pulse 90 09/19/19 04:00 Resp 19 09/19/19 04:00 BP 134/87 09/19/19 04:00 Pulse Ox 97 09/19/19 04:00 Intake & Output 09/18/19 09/19/19 09/19/19 18:59 06:59 18:59 Intake Total 720 Output Total 1440 Balance -720 Intake: Oral 720 Output: Urine 1440 Other: # Voids 1 1 - Labs CBC & Chem 7: 09/19/19 07:37 09/19/19 07:37
[2019-09-19] MEDS: LOSARTAN 50 MG TAB PO SCH (11:09)
[2019-09-19] MEDS: NICOTINE 21MG/24HR PATCH TRANSDERM SCH (11:10)
[2019-09-19] MEDS: MULTIVITAMINS, THERA 1 EACH TAB PO SCH (11:10)
[2019-09-19] MEDS: PANTOPRAZOLE 40 MG TABLET PO SCH (11:10)
[2019-09-19] MEDS: ASPIRIN 81 MG PO SCH (11:10)
--- NOTE | 2019-09-19 11:43 | ECHOF ---
Referral Reason:chest pain MEASUREMENTS -------- HEIGHT: 157.5 cm WEIGHT: 64.4 kg BP: 134/87 RVIDd: 2.9 cm (< 3.3) IVSd: 1.3 cm (0.6 - 1.1) LVIDd: 3.3 cm (3.9 - 5.3) LVPWd: 1.0 cm (0.6 - 1.1) IVSs: 1.4 cm LVIDs: 2.3 cm LVPWs: 1.5 cm LA Diam: 3.2 cm (2.7 - 3.8) Ao Diam: 3.2 cm (2.0 - 3.7) AV Cusp: 1.9 cm (1.5 - 2.6) MV EXCURSION: 14.924 mm (> 18.000) MV EF SLOPE: 42 mm/s (70 - 150) EPSS: 0.6 cm MV E Liam: 0.42 m/s MV DecT: 173 ms MV A Liam: 0.82 m/s MV E/A Ratio: 0.51 FINDINGS -------- Sinus rhythm. This was a technically adequate study. The left ventricular size is normal. There is mild concentric left ventricular hypertrophy. Overa ll left ventricular systolic function is low-normal with, an EF between 50 - 55 %. The right ventricle is normal in size. The left atrial size is normal. The right atrium is normal in size. Interatrial and interventricular septum intact. The aortic valve is trileaflet and appears structurally normal. Trace amount of aortic regurgitatio n. There is trace mitral regurgitation. Trace tricuspid regurgitation present. There is no pulmonic regurgitation present. The aortic root size is normal. Normal inferior vena cava with normal inspiratory collapse consistent with estimated right atrial pre ssure of 5 mmHg. There is no pericardial effusion. CONCLUSIONS -------- 1. Sinus rhythm. 2. This was a technically adequate study. 3. The left ventricular size is normal. 4. There is mild concentric left ventricular hypertrophy. 5. Overall left ventricular systolic function is low-normal with, an EF between 50 - 55 %. 6. The right ventricle is normal in size. 7. The left atrial size is normal. 8. The right atrium is normal in size. 9. Interatrial and interventricular septum intact. 10. The aortic valve is trileaflet and appears structurally normal. 11. Trace amount of aortic regurgitation. 12. There is trace mitral regurgitation. 13. Trace tricuspid regurgitation present. 14. There is no pulmonic regurgitation present. 15. The aortic root size is normal. 16. Normal inferior vena cava with normal inspiratory collapse consistent with estimated right atrial pressure of 5 mmHg. 17. There is no pericardial effusion. VOCATIONAL SERVICES SPECIALIST: Barb Patel RDCS
--- NOTE | 2019-09-19 12:52 | ECHOS ---
STRESS ECHOCARDIOGRAM LUMASON: Vial INDICATIONS: Chest pain MEDICATIONS: BASELINE HEART RATE: 103 BASELINE BLOOD PRESSURE: 164/78 MAXIMUM HEART RATE: 164 MAXIMUM BLOOD PRESSURE: 194/100 85% MPHR: 138 100% MPHR: 162 METS: 7.3 MAXIMUM STAGE REACHED: 2 TOTAL EXERCISE TIME: 6:00 INDICATION: Chest pain. Baseline EKG shows sinus rhythm, normal axis, normal intervals. Patient exercised on Redd protocol for a total of 6 minutes achieving 7 METS, 100% of predicted maximal heart rate without chest pain. At peak exercise there was [address]-segment depression noted in the inferolateral leads. Baseline echo shows normal left ventricular size, wall motion and systolic function. Postexercise, there is normal hyperdynamic response of all segments of myocardium noted. CONCLUSION: 1. Average exercise tolerance. 2. Abnormal stress test by EKG criteria. 3. Negative stress echo. ELIDA / ADRIANA: [id number] /
--- NOTE | 2019-09-20 05:24 | DS ---
DISCHARGE SUMMARY FINAL DIAGNOSES: 1. Chest pain, possible musculoskeletal, stress echo is negative. 2. History of coronary artery disease, myocardial infarction, stents. 3. Hyponatremia. 4. Increased AST, ALT, mild hepatitis. 5. Hypomagnesemia. 6. Elevated lipase. 7. History of asthma, chronic obstructive pulmonary disease. 8. Gastroesophageal reflux disease. 9. Hypertension. 10.Hyperlipidemia. 11.History of eczema. 12.History of nephrolithiasis. 13.History of appendectomy. 14.History of adenoidectomy. 15.History of smoking. 16.Anxiety, depression. 17.History of EtOH. DISCHARGE DISPOSITION: The patient will be discharged in stable condition with guarded prognosis. HISTORY OF PRESENT ILLNESS: This is a 59-year-old woman with a past medical history of multiple medical problems was not being followed by primary physician in outpatient admitted with chest pain, myocardial infarction . Stress echo was negative. On exam, vitals are stable. CARDIOVASCULAR: S1, S2 muffled. ABDOMEN: Soft. NERVOUS SYSTEM: No focal deficits. LFTs elevated, improving. AST is 126 and ALT is 134. Recommend outpatient followup. Cholesterol is 233. DISCHARGE ADVICE AND MEDICATIONS: 1. Diet is cardiac. 2. Activity limited until followup. 3. Follow up with Dr. Aj in 2-3 days. 4. Follow up with Dr. Anders as recommended. 5. CBC, CMP in the outpatient setting. MEDICATIONS: 1. Omeprazole 20 mg daily. 2. Aspirin 81 mg daily. 3. Losartan 50 mg b.i.d. 4. Habitrol 21 daily. Once again the patient will be discharged in a stable condition with guarded prognosis. MMODL / IJN: [id number] / MTDD
== END 2019-09-19 13:51 | disposition home or self-care (01) ==
LOC: EC 16:54 → 1SOBS 18:24
PROVIDERS: ADMIT Hospitalist; ATTEND Hospitalist
DX: R07.89 Other chest pain (principal); M79.602 Pain in left arm; R10.9 Unspecified abdominal pain; R20.0 Anesthesia of skin; I25.10 Atherosclerotic heart disease of native coronary artery without angina pectoris; E87.1 Hypo-osmolality and hyponatremia; K75.9 Inflammatory liver disease, unspecified; E83.42 Hypomagnesemia; R74.8 Abnormal levels of other serum enzymes; J44.9 Chronic obstructive pulmonary disease, unspecified; I25.2 Old myocardial infarction; K21.9 Gastro-esophageal reflux disease without esophagitis; E78.5 Hyperlipidemia, unspecified; I10 Essential (primary) hypertension; L30.9 Dermatitis, unspecified; F41.9 Anxiety disorder, unspecified; F32.9 Major depressive disorder, single episode, unspecified; K76.0 Fatty (change of) liver, not elsewhere classified; R79.1 Abnormal coagulation profile; R05 Cough; R74.0 Nonspecific elevation of levels of transaminase and lactic acid dehydrogenase [LDH]; F17.210 Nicotine dependence, cigarettes, uncomplicated; Z91.14 Patient's other noncompliance with medication regimen; Z03.818 Encounter for observation for suspected exposure to other biological agents ruled out; Z79.899 Other long term (current) drug therapy; Z79.82 Long term (current) use of aspirin; Z87.820 Personal history of traumatic brain injury; Z87.442 Personal history of urinary calculi; Z95.5 Presence of coronary angioplasty implant and graft; Z86.010 Personal history of colon polyps; Z90.89 Acquired absence of other organs; Z90.49 Acquired absence of other specified parts of digestive tract; Z98.890 Other specified postprocedural states; Z98.51 Tubal ligation status; Z87.81 Personal history of (healed) traumatic fracture; Z91.89 Other specified personal risk factors, not elsewhere classified; Z80.9 Family history of malignant neoplasm, unspecified
CPT/HCPCS: 93005 ×2; 96365; 96366 ×2; 96368; 96376 ×2; 96375; 99291; 36415; 93306; 85379; 83880; 80061; 80053 ×3; 83690; 83735 ×2; 84484 ×2; 85025 ×3; 85610; 85730 ×2; 71275; G0378 ×3; C8930; U0003; S4990 ×3; J2270; J1644 ×3; J3475; Q9950; Q9967; 93351

== ENCOUNTER 2019-11-05 22:54 | Emergency (ER) | payer OTHER ==
[2019-11-05 23:00] VITALS: TEMP 97.4
[2019-11-05] MEDS ORDERED: SODIUM CHLORIDE 0.9% 500 ML 500 ML IV STA (23:07)
[2019-11-05 23:45] LABS: Basophils # (A) 0.1 k/uL (0-0.2); Basophils % (A) 1 %; Eosinophils # (A) 0.1 k/uL (0-0.7); Eosinophils % (A) 2 %; HCT 36.3 % (34.0-46.0); Lymphocytes # (A) 2.9 k/uL (1.0-4.8); Lymphocytes % (A) 56 %; MCH 33.6 pg (25.0-35.0); MCHC 35.6 g/dL (31.0-37.0); MCV 94.4 fL (80.0-100.0); Monocytes # (A) 0.3 k/uL (0-1.0); Monocytes % (A) 6 %; Neutrophils # (A) 1.7 k/uL (1.3-7.7); Neutrophils % (A) 33 %; Platelet Count 261 k/uL (150-450); RBC 3.84 m/uL (3.80-5.40); RDW 12.7 % (11.5-15.5); WBC 5.2 k/uL (3.8-10.6)
[2019-11-05 23:48] LABS: ALT 58 U/L (4-34); AST 67 U/L (14-36); African American GFR (CKD) >90 (>60 ml/min/1.73 sqM); Albumin 3.9 g/dL (3.5-5.0); Alkaline Phosphatase 106 U/L (38-126); Amylase 99 U/L (30-110); Anion Gap 7 mmol/L; Blood Urea Nitrogen 12 mg/dL (7-17); Calcium 8.9 mg/dL (8.4-10.2); Carbon Dioxide 21 mmol/L (22-30); Chloride 102 mmol/L (98-107); Glucose 106 mg/dL (74-99); Non-African American GFR(CKD) >90 (>60 ml/min/1.73 sqM); Potassium 3.8 mmol/L (3.5-5.1); Sodium 130 mmol/L (137-145); Total Bilirubin 0.2 mg/dL (0.2-1.3); Total Protein 6.3 g/dL (6.3-8.2)
[2019-11-05 23:56] LABS: Appearance,Urine Cloudy (Clear); Bilirubin,Urine Negative (Negative); Blood,Urine Negative (Negative); Color,Urine Light Yellow; Glucose,Urine (UA) Negative (Negative); Ketones,Urine Negative (Negative); Leukocyte Esterase,Urine Trace (Negative); Nitrite,Urine Negative (Negative); Protein,Urine Negative (Negative); RBC,Urine <1 /hpf (0-5); Specific Gravity,Urine 1.003 (1.001-1.035); Squamous Epithelial Cell,Urine 1 /hpf (0-4); Urobilinogen,Urine <2.0 mg/dL (<2.0); WBC,Urine 2 /hpf (0-5)
[2019-11-05 23:59] LABS: HGB 12.9 gm/dL (11.4-16.0)
[2019-11-06] MEDS ORDERED: MORPHINE SULFATE 4 MG/ML SYRINGE IV STA (00:19)
[2019-11-06] MEDS ORDERED: SODIUM CHLORIDE 0.9% 1,000 ML IV STA (00:20)
[2019-11-06] MEDS ORDERED: SODIUM CHLORIDE 0.9% 500 ML 500 ML IV STA (00:20)
[2019-11-06 00:50] VITALS: BP 117/45; PULSE 64; RESP 16
--- NOTE | 2019-11-06 01:01 | CT ---
EXAMINATION TYPE: CT abdomen pelvis wo con DATE OF EXAM: 11/06/2019 COMPARISON: 07/21/2018 HISTORY: right side abd pain CT DLP: 497 mGycm Automated exposure control for dose reduction was used. Images obtained from the diaphragm to the floor the pelvis with no contrast. FINDINGS: Lung bases are clear. There is no pleural effusion. Heart size is normal. Liver spleen pancreas gallb ladder stomach appear normal. Bile ducts are not dilated. There is no adrenal mass. Kidneys show normal size and contour. There is no hydronephrosis. There is 6 mm calculus lower pole right kidney. Abdominal aorta is atheromatous. Ureters are not dilated. Ther e is no retroperitoneal adenopathy. Bladder distends smoothly. There is no inguinal hernia. Uterus is anteverted. There is no evidence of a pelvic mass. Appendix is not seen. There is no sign of thickened appendix. There is no mesenteric edema. There is no ascites or free air. There is no sign of a bowel obstruction. There are a few sigmoid diverticula. There is no sign of diverticulitis. There is some mild wall thickening of the proximal jejunum. The lumbar vertebra have fairly normal spacing and alignment. There is no compression fracture. Poste rior elements are intact. The bony pelvis appears intact. Hip joints appear normal. 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 IMPRESSION: Nonobstructing calculus right kidney unchanged. Appendix not seen. No sign of appendicitis. There is some wall thickening of the jejunum that could relate to some gastroenteritis.
--- NOTE | 2019-11-06 01:29 | ED ---
Abdominal Pain HPI - General Chief Complaint: Abdominal Pain Stated Complaint: abd pain Time Seen by Provider: 11/05/19 23:06 Source: patient, EMS Mode of arrival: EMS Limitations: no limitations - History of Present Illness Initial Comments: This patient is a 59-year-old woman presenting to be evaluated for abdominal pain. She does note that it had started approximately 3 days ago. The patient notes that she had eaten some pork that she had at home. She states the following eating this she had felt sick and had the abdominal pain, on. The patient states she had also given some of that to her dog and the dog also apparently had diarrhea following this. MD Complaint: abdominal pain Onset/Timin -: days(s) Location: RUQ, RLQ Radiation: none Migration to: no migration Severity: severe Quality: cramping Consistency: intermittent Improves With: nothing Worsens With: nothing Associated Symptoms: nausea - Related Data Home Medications Medication Instructions Recorded Confirmed Omeprazole 20 mg PO DAILY 09/17/19 09/17/19 Previous Rx's Medication Instructions Recorded Aspirin 81 mg PO DAILY chew 09/19/19 Losartan [Cozaar] 50 mg PO BID #180 tab 09/19/19 Nicotine 21Mg/24Hr Patch [Habitrol] 1 patch TRANSDERM DAILY #30 patch 09/19/19 Dicyclomine [Bentyl] 20 mg PO QID #15 tablet 11/06/19 Ondansetron Odt [Zofran ODT] 4 mg PO Q8HR PRN #10 tab 11/06/19 Sulfamethox-Tmp 800-160Mg [Bactrim 1 each PO Q12HR #10 tab 11/06/19 Ds] Allergies Allergy/AdvReac Type Severity Reaction Status Date / Time No Known Allergies Allergy Verified 09/17/19 18:47 Review of Systems ROS Statement: Those systems with pertinent positive or pertinent negative responses have been documented in the HPI. ROS Other: All systems not noted in ROS Statement are negative. Constitutional: Denies: fever, chills Respiratory: Denies: cough, dyspnea Cardiovascular: Denies: chest pain, palpitations, edema Gastrointestinal: Reports: abdominal pain, nausea, diarrhea. Denies: vomiting, constipation, melena, hematochezia Genitourinary: Denies: dysuria, hematuria Musculoskeletal: Denies: back pain Skin: Denies: rash Neurological: Denies: headache, weakness, numbness Past Medical History Past Medical History: Asthma, Coronary Artery Disease (CAD), COPD, GERD/Reflux, Hyperlipidemia, Hypertension, Myocardial Infarction ([place]), Myocardial Infarction (non Q-wave), Skin Disorder Additional Past Medical History / Comment(s): HX CONCUSSION X3 CHILD. KIDNEY STONE X1. ECZEMA. [place] AGE 40; POSS [place] 11/24, TOLD NOT BY CHIEF WRITER - BUT STENT REPLACED. LMP 2007. HX COLON POLYPS. Last Myocardial Infarction Date:: 12-07-13 History of Any Multi-Drug Resistant Organisms: None Reported Past Surgical History: Adenoidectomy, Appendectomy, Heart Catheterization With Stent, Orthopedic Surgery, Tonsillectomy, Tubal Ligation Additional Past Surgical History / Comment(s): Cardiac Stent 13 YEARS AGO, STENT REPLACED 12-07-13. ORIF LT ANKLE, HAS PLATE/6 SCREWS. Past Anesthesia/Blood Transfusion Reactions: Previous Problems w/ Anesthesia Additional Past Anesthesia/Blood Transfusion Reaction / Comment(s): HX LOW BLOOD PRESSURE X1 W/ COLONOSCOPY (AFTER [place]). Date of Last Stent Placement:: 12/07/13 Past Psychological History: Anxiety, Depression Smoking Status: Current every day smoker Past Alcohol Use History: Daily Past Drug Use History: None Reported - Past Family History Father Additional Family Medical History / Comment(s): UNK Mother Family Medical History: Cancer Additional Family Medical History / Comment(s): AT AGE 62-CANCER General Exam Limitations: no limitations General appearance: alert, in no apparent distress Head exam: Present: atraumatic, normocephalic Eye exam: Present: normal appearance. Absent: scleral icterus, conjunctival injection ENT exam: Present: normal oropharynx Neck exam: Present: normal inspection Respiratory exam: Present: normal lung sounds bilaterally. Absent: respiratory distress, wheezes, rales, rhonchi, stridor Cardiovascular Exam: Present: regular rate, normal rhythm, normal heart sounds. Absent: systolic murmur, diastolic murmur, rubs, gallop GI/Abdominal exam: Present: soft, tenderness (Patient has mild right-sided abdominal tenderness without rebound or guarding). Absent: distended, guarding, rebound, rigid, mass, pulsatile mass, hernia Extremities exam: Present: normal inspection, normal capillary refill. Absent: pedal edema, calf tenderness Back exam: Present: normal inspection. Absent: CVA tenderness (R), CVA tenderness (L) Neurological exam: Present: alert Skin exam: Present: warm, dry, intact, normal color. Absent: rash Course Vital Signs 11/05/19 11/06/19 22:56 00:49 Temperature 97.4 F L Pulse Rate 82 64 Respiratory 18 16 Rate Blood Pressure 98/55 117/45 O2 Sat by Pulse 94 L 92 L Oximetry Medical Decision Making - Lab Data Result diagrams: 11/05/19 23:21 11/05/19 23:21 Lab Results 11/05/19 11/05/19 11/05/19 Range/Units 23:21 23:21 23:21 WBC 5.2 (3.8-10.6) k/uL RBC 3.84 (3.80-5.40) m/uL Hgb 12.9 D (11.4-16.0) gm/dL Hct 36.3 (34.0-46.0) % MCV 94.4 (80.0-100.0) fL MCH 33.6 (25.0-35.0) pg MCHC 35.6 (31.0-37.0) g/dL RDW 12.7 (11.5-15.5) % Plt Count 261 (150-450) k/uL Neutrophils % 33 % Lymphocytes % 56 % Monocytes % 6 % Eosinophils % 2 % Basophils % 1 % Neutrophils # 1.7 (1.3-7.7) k/uL Lymphocytes # 2.9 (1.0-4.8) k/uL Monocytes # 0.3 (0-1.0) k/uL Eosinophils # 0.1 (0-0.7) k/uL Basophils # 0.1 (0-0.2) k/uL Sodium 130 L (137-145) mmol/L Potassium 3.8 (3.5-5.1) mmol/L Chloride 102 (98-107) mmol/L Carbon Dioxide 21 L (22-30) mmol/L Anion Gap 7 mmol/L BUN 12 (7-17) mg/dL Creatinine 0.70 (0.52-1.04) mg/dL Est GFR (CKD-EPI)AfAm >90 (>60 ml/min/1.73 sqM) Est GFR (CKD-EPI)NonAf >90 (>60 ml/min/1.73 sqM) Glucose 106 H (74-99) mg/dL Plasma Lactic Acid Afshin 2.5 H* (0.7-2.0) mmol/L Calcium 8.9 (8.4-10.2) mg/dL Total Bilirubin 0.2 (0.2-1.3) mg/dL AST 67 H (14-36) U/L ALT 58 H (4-34) U/L Alkaline Phosphatase 106 (38-126) U/L Total Protein 6.3 (6.3-8.2) g/dL Albumin 3.9 (3.5-5.0) g/dL Amylase 99 (30-110) U/L Lipase 759 H (23-300) U/L Urine Color Urine Appearance (Clear) Urine pH (5.0-8.0) Ur Specific [place] (1.001-1.035) Urine Protein (Negative) Urine Glucose (UA) (Negative) Urine Ketones (Negative) Urine Blood (Negative) Urine Nitrite (Negative) Urine Bilirubin (Negative) Urine Urobilinogen (<2.0) mg/dL Ur Leukocyte Esterase (Negative) Urine RBC (0-5) /hpf Urine WBC (0-5) /hpf Ur Squamous Epith Cells (0-4) /hpf 07/25/20 Range/Units 23:49 WBC (3.8-10.6) k/uL RBC (3.80-5.40) m/uL Hgb (11.4-16.0) gm/dL Hct (34.0-46.0) % MCV (80.0-100.0) fL MCH (25.0-35.0) pg MCHC (31.0-37.0) g/dL RDW (11.5-15.5) % Plt Count (150-450) k/uL Neutrophils % % Lymphocytes % % Monocytes % % Eosinophils % % Basophils % % Neutrophils # (1.3-7.7) k/uL Lymphocytes # (1.0-4.8) k/uL Monocytes # (0-1.0) k/uL Eosinophils # (0-0.7) k/uL Basophils # (0-0.2) k/uL Sodium (137-145) mmol/L Potassium (3.5-5.1) mmol/L Chloride (98-107) mmol/L Carbon Dioxide (22-30) mmol/L Anion Gap mmol/L BUN (7-17) mg/dL Creatinine (0.52-1.04) mg/dL Est GFR (CKD-EPI)AfAm (>60 ml/min/1.73 sqM) Est GFR (CKD-EPI)NonAf (>60 ml/min/1.73 sqM) Glucose (74-99) mg/dL Plasma Lactic Acid Afshin (0.7-2.0) mmol/L Calcium (8.4-10.2) mg/dL Total Bilirubin (0.2-1.3) mg/dL AST (14-36) U/L ALT (4-34) U/L Alkaline Phosphatase (38-126) U/L Total Protein (6.3-8.2) g/dL Albumin (3.5-5.0) g/dL Amylase (30-110) U/L Lipase (23-300) U/L Urine Color Light Yellow Urine Appearance Cloudy H (Clear) Urine pH 6.0 (5.0-8.0) Ur Specific [place] 1.003 (1.001-1.035) Urine Protein Negative (Negative) Urine Glucose (UA) Negative (Negative) Urine Ketones Negative (Negative) Urine Blood Negative (Negative) Urine Nitrite Negative (Negative) Urine Bilirubin Negative (Negative) Urine Urobilinogen <2.0 (<2.0) mg/dL Ur Leukocyte Esterase Trace H (Negative) Urine RBC <1 (0-5) /hpf Urine WBC 2 (0-5) /hpf Ur Squamous Epith Cells 1 (0-4) /hpf Disposition Clinical Impression: Abdominal pain, Enteritis Disposition: HOME SELF-CARE Condition: Fair Instructions (If sedation given, give patient instructions): Abdominal Pain (ED) Prescriptions: Sulfamethox-Tmp 800-160Mg [Bactrim Ds] 1 each PO Q12HR #10 tab Dicyclomine [Bentyl] 20 mg PO QID #15 tablet Ondansetron Odt [Zofran ODT] 4 mg PO Q8HR PRN #10 tab PRN Reason: Nausea Is patient prescribed a controlled substance at d/c from ED?: No Referrals: Cally Aj MD [Primary Care Provider] - 1-2 days
== END 2019-11-06 01:42 | disposition home or self-care (01) ==
LOC: EC 22:54
DX: K52.9 Noninfective gastroenteritis and colitis, unspecified (principal); K21.9 Gastro-esophageal reflux disease without esophagitis; F17.200 Nicotine dependence, unspecified, uncomplicated; I25.2 Old myocardial infarction; Z79.899 Other long term (current) drug therapy; Z90.49 Acquired absence of other specified parts of digestive tract; Z95.5 Presence of coronary angioplasty implant and graft
CPT/HCPCS: 99284; 96374; 96361 ×2; 36415; 80053; 82150; 83605; 83690; 85025; 81001; 74176; J2270

== ENCOUNTER 2020-03-07 12:53 | Observation (INO) | payer OTHER ==
[2020-03-07] MEDS ORDERED: methylPREDNISolone SOD SUCCI 125 MG/2 ML VIAL IV STA (13:37)
[2020-03-07 14:10] LABS: Basophils % (A) 1 %; Eosinophils # (A) 0.1 k/uL (0-0.7); Eosinophils % (A) 2 %; HCT 38.8 % (34.0-46.0); HGB 13.9 gm/dL (11.4-16.0); Lymphocytes # (A) 0.9 k/uL (1.0-4.8); Lymphocytes % (A) 21 %; MCH 34.3 pg (25.0-35.0); MCHC 35.7 g/dL (31.0-37.0); MCV 96.1 fL (80.0-100.0); Monocytes # (A) 0.2 k/uL (0-1.0); Monocytes % (A) 4 %; Neutrophils % (A) 70 %; Platelet Count 102 k/uL (150-450); RBC 4.04 m/uL (3.80-5.40); RDW 13.7 % (11.5-15.5); WBC 4.3 k/uL (3.8-10.6)
--- NOTE | 2020-03-07 14:20 | ED ---
SOB HPI - General Chief Complaint: Shortness of Breath Stated Complaint: ENT, SOB Time Seen by Provider: 03/07/20 13:03 Source: patient Mode of arrival: ambulatory Limitations: no limitations - History of Present Illness Initial Comments: 60-year-old female history of COPD and current smoker presenting to the emergency department with a chief complaint of shortness of breath. Patient states she has been having URI symptoms for the past 3 weeks. She also reports a productive cough with white sputum production. She reports over the last week she also develops some shortness of breath along with intermittent wheezing. States that she is a current smoker but is not oxygen dependent for her COPD. States that she has not had to use a nebulizer in a while. There is report chills but denies any fevers because she does not have a thermometer at home. Denies taking medication to alleviate the symptoms. Denies covid-19 exposure. Denies any chest pain abdominal pain nausea vomiting diarrhea. - Related Data Home Medications Medication Instructions Recorded Confirmed Omeprazole 20 mg PO DAILY 09/17/19 03/07/20 Allopurinol [Zyloprim] 100 mg PO DAILY 03/07/20 03/07/20 Loratadine [Claritin] 10 mg PO DAILY 03/07/20 03/07/20 Losartan Potassium 100 mg PO DAILY 03/07/20 03/07/20 Metoprolol Succinate [Toprol XL] 25 mg PO DAILY 03/07/20 03/07/20 Pravastatin Sodium [Pravachol] 10 mg PO HS 03/07/20 03/07/20 Sertraline [Zoloft] 25 mg PO DAILY 03/07/20 03/07/20 Previous Rx's Medication Instructions Recorded Aspirin 81 mg PO DAILY chew 09/19/19 Allergies Allergy/AdvReac Type Severity Reaction Status Date / Time No Known Allergies Allergy Verified 03/07/20 15:07 Review of Systems ROS Statement: Those systems with pertinent positive or pertinent negative responses have been documented in the HPI. ROS Other: All systems not noted in ROS Statement are negative. Past Medical History Past Medical History: Asthma, Coronary Artery Disease (CAD), COPD, GERD/Reflux, Hyperlipidemia, Hypertension, Myocardial Infarction ([place]), Myocardial Infarction (non Q-wave), Skin Disorder Additional Past Medical History / Comment(s): HX CONCUSSION X3 CHILD. KIDNEY STONE X1. ECZEMA. [place] AGE 40; POSS [place] 11/24, TOLD NOT BY BREAKDOWN MAN - BUT STENT REPLACED. LMP 2008. HX COLON POLYPS. Last Myocardial Infarction Date:: 12-07-13 History of Any Multi-Drug Resistant Organisms: None Reported Past Surgical History: Adenoidectomy, Appendectomy, Heart Catheterization With Stent, Orthopedic Surgery, Tonsillectomy, Tubal Ligation Additional Past Surgical History / Comment(s): Cardiac Stent 13 YEARS AGO, STENT REPLACED 12-07-13. ORIF LT ANKLE, HAS PLATE/6 SCREWS. Past Anesthesia/Blood Transfusion Reactions: Previous Problems w/ Anesthesia Additional Past Anesthesia/Blood Transfusion Reaction / Comment(s): HX LOW BLOOD PRESSURE X1 W/ COLONOSCOPY (AFTER [place]). Date of Last Stent Placement:: 12/07/13 Past Psychological History: Anxiety, Depression Smoking Status: Current every day smoker Past Alcohol Use History: Daily Past Drug Use History: None Reported - Past Family History Father Additional Family Medical History / Comment(s): UNK Mother Family Medical History: Cancer Additional Family Medical History / Comment(s): AT AGE 62-CANCER General Exam Limitations: no limitations General appearance: alert, in no apparent distress Head exam: Present: atraumatic, normocephalic, normal inspection Eye exam: Present: normal appearance, PERRL, EOMI Pupils: Present: normal accommodation ENT exam: Present: normal exam, normal oropharynx (Uvula midline. No tonsillar erythema, exudates.), mucous membranes moist, TM's normal bilaterally, normal external ear exam Neck exam: Present: normal inspection, full ROM. Absent: tenderness Respiratory exam: Present: wheezes (Wheezing bilaterally). Absent: normal lung sounds bilaterally, respiratory distress, rales, rhonchi, stridor, chest wall tenderness, accessory muscle use Cardiovascular Exam: Present: regular rate, normal rhythm, normal heart sounds GI/Abdominal exam: Present: soft. Absent: distended, tenderness, guarding Extremities exam: Present: normal inspection, full ROM, normal capillary refill. Absent: tenderness, pedal edema, joint swelling, calf tenderness Back exam: Present: normal inspection, full ROM. Absent: tenderness, CVA te nderness (R), CVA tenderness (L), muscle spasm, vertebral tenderness Neurological exam: Present: alert, oriented X3, normal gait Psychiatric exam: Present: normal affect, normal mood Skin exam: Present: warm, dry, intact, normal color Course Vital Signs 03/07/20 12:57 Temperature 97.1 F L Pulse Rate 131 H Respiratory 20 Rate Blood Pressure 148/83 O2 Sat by Pulse 98 Oximetry Medical Decision Making - Medical Decision Making 60-year-old female with history of COPD presenting to emergency Department with a chief complaint of shortness of breath. On physical examination, patient has bilateral wheezing. Patient was treated for COPD exacerbation with 125 mg of Solu-Medrol and she was also given albuterol inhaler. No nebulizer in order to prevent spreading of pathogens. On initial evaluation, patient is tachycardic at 130 bpm. on reevaluation, patient reports improvement in symptoms although she still feeling short of breath. , CT chest angiogram pending. Patient does have elevated d-dimer. Chest x-ray unremarkable. EKG showing sinus rhythm with prolonged QT. Hypokalemia and hypomagnesemia. Electrolyte replacement started. Patient will be admitted for further medical management. Covid test mikie. Case discussed with Dr De Souza Admitting physician is - Lab Data Result diagrams: 03/07/20 13:47 03/07/20 13:47 Lab Results 03/07/20 03/07/20 03/07/20 Range/Units 13:47 13:47 13:47 WBC 4.3 (3.8-10.6) k/uL RBC 4.04 (3.80-5.40) m/uL Hgb 13.9 (11.4-16.0) gm/dL Hct 38.8 (34.0-46.0) % MCV 96.1 (80.0-100.0) fL MCH 34.3 (25.0-35.0) pg MCHC 35.7 (31.0-37.0) g/dL RDW 13.7 (11.5-15.5) % Plt Count 102 L (150-450) k/uL MPV 8.0 Neutrophils % 70 % Lymphocytes % 21 % Monocytes % 4 % Eosinophils % 2 % Basophils % 1 % Neutrophils # 3.0 (1.3-7.7) k/uL Lymphocytes # 0.9 L (1.0-4.8) k/uL Monocytes # 0.2 (0-1.0) k/uL Eosinophils # 0.1 (0-0.7) k/uL Basophils # 0.0 (0-0.2) k/uL PT 9.7 (9.0-12.0) sec INR 0.9 (<1.2) APTT 23.1 (22.0-30.0) sec D-Dimer 0.67 H (<0.60) mg/L FEU Sodium 131 L (137-145) mmol/L Potassium 3.3 L (3.5-5.1) mmol/L Chloride 100 (98-107) mmol/L Carbon Dioxide 26 (22-30) mmol/L Anion Gap 5 mmol/L BUN 7 (7-17) mg/dL Creatinine 0.59 (0.52-1.04) mg/dL Est GFR (CKD-EPI)AfAm >90 (>60 ml/min/1.73 sqM) Est GFR (CKD-EPI)NonAf >90 (>60 ml/min/1.73 sqM) Glucose 123 H (74-99) mg/dL Plasma Lactic Acid Afshin (0.7-2.0) mmol/L Calcium 9.5 (8.4-10.2) mg/dL Magnesium 1.2 L (1.6-2.3) mg/dL Total Bilirubin 0.7 (0.2-1.3) mg/dL AST 115 H (14-36) U/L ALT 47 H (4-34) U/L Alkaline Phosphatase 121 (38-126) U/L Lactate Dehydrogenase 772 H (313-618) U/L Troponin I (0.000-0.034) ng/mL C-Reactive Protein 8.4 (<10.0) mg/L Total Protein 7.4 (6.3-8.2) g/dL Albumin 4.2 (3.5-5.0) g/dL 03/07/20 03/07/20 Range/Units 13:47 13:54 WBC (3.8-10.6) k/uL RBC (3.80-5.40) m/uL Hgb (11.4-16.0) gm/dL Hct (34.0-46.0) % MCV (80.0-100.0) fL MCH (25.0-35.0) pg MCHC (31.0-37.0) g/dL RDW (11.5-15.5) % Plt Count (150-450) k/uL MPV Neutrophils % % Lymphocytes % % Monocytes % % Eosinophils % % Basophils % % Neutrophils # (1.3-7.7) k/uL Lymphocytes # (1.0-4.8) k/uL Monocytes # (0-1.0) k/uL Eosinophils # (0-0.7) k/uL Basophils # (0-0.2) k/uL PT (9.0-12.0) sec INR (<1.2) APTT (22.0-30.0) sec D-Dimer (<0.60) mg/L FEU Sodium (137-145) mmol/L Potassium (3.5-5.1) mmol/L Chloride (98-107) mmol/L Carbon Dioxide (22-30) mmol/L Anion Gap mmol/L BUN (7-17) mg/dL Creatinine (0.52-1.04) mg/dL Est GFR (CKD-EPI)AfAm (>60 ml/min/1.73 sqM) Est GFR (CKD-EPI)NonAf (>60 ml/min/1.73 sqM) Glucose (74-99) mg/dL Plasma Lactic Acid Afshin 1.2 (0.7-2.0) mmol/L Calcium (8.4-10.2) mg/dL Magnesium (1.6-2.3) mg/dL Total Bilirubin (0.2-1.3) mg/dL AST (14-36) U/L ALT (4-34) U/L Alkaline Phosphatase (38-126) U/L Lactate Dehydrogenase (313-618) U/L Troponin I <0.012 (0.000-0.034) ng/mL C-Reactive Protein (<10.0) mg/L Total Protein (6.3-8.2) g/dL Albumin (3.5-5.0) g/dL - EKG Data EKG Comments: Sinus rhythm with prolonged QT. Q wave leads 3. Ventricular rate 90, TX 128, QRS 78, QTC 486. Disposition Clinical Impression: Shortness of breath, Hypokalemia, Hypomagnesemia Disposition: ADMITTED IP TO THIS HOSP Condition: Fair Is patient prescribed a controlled substance at d/c from ED?: No Referrals: Cally Aj MD [Primary Care Provider] - 1-2 days Time of Disposition: 15:37
[2020-03-07 14:25] LABS: ALT 47 U/L (4-34); AST 115 U/L (14-36); African American GFR (CKD) >90 (>60 ml/min/1.73 sqM); Albumin 4.2 g/dL (3.5-5.0); Alkaline Phosphatase 121 U/L (38-126); Anion Gap 5 mmol/L; Blood Urea Nitrogen 7 mg/dL (7-17); C Reactive Protein 8.4 mg/L (<10.0); Calcium 9.5 mg/dL (8.4-10.2); Carbon Dioxide 26 mmol/L (22-30); Chloride 100 mmol/L (98-107); Glucose 123 mg/dL (74-99); LDH 772 U/L (313-618); Magnesium 1.2 mg/dL (1.6-2.3); Non-African American GFR(CKD) >90 (>60 ml/min/1.73 sqM); Potassium 3.3 mmol/L (3.5-5.1); Sodium 131 mmol/L (137-145); Total Bilirubin 0.7 mg/dL (0.2-1.3); Total Protein 7.4 g/dL (6.3-8.2)
[2020-03-07 14:32] LABS: INR 0.9 (<1.2); Partial Thromboplastin Time 23.1 sec (22.0-30.0); Prothrombin Time 9.7 sec (9.0-12.0)
[2020-03-07 14:36] LABS: D-Dimer 0.67 mg/L FEU (<0.60)
--- NOTE | 2020-03-07 14:41 | XR ---
EXAMINATION TYPE: XR chest 1V portable DATE OF EXAM: 03/07/2020 HISTORY: Shortness of breath. COMPARISON: 07/15/2018 TECHNIQUE: Single view of the chest is submitted. FINDINGS: Demonstrated are scattered senescent parenchymal change. There is no evidence for focal infiltrate. The heart is stable. Hilar and mediastinal structures are within normal limits. Degenerative changes are seen of the dorsal spine. IMPRESSION: 1. Chronic changes without evidence for acute pulmonary disease.
[2020-03-07] MEDS ORDERED: ALBUTEROL HFA INHALER INHALATION STA (14:49)
[2020-03-07] MEDS ORDERED: POTASSIUM CHLORIDE ER 20 MEQ TAB.ER PO STA (15:37)
[2020-03-07] MEDS ORDERED: HYDROmorphone 0.5 MG/0.5 ML SYRINGE IVP PRN (15:38)
[2020-03-07] MEDS ORDERED: LORazepam 2 MG/ML INJ IV PRN (15:38)
[2020-03-07] MEDS ORDERED: MORPHINE SULFATE 4 MG/ML SYRINGE IV PRN (15:38)
[2020-03-07] MEDS ORDERED: NALOXONE 0.4 MG/ML 1 ML VIAL IV PRN (15:38)
[2020-03-07] MEDS ORDERED: ACETAMINOPHEN TAB 325 MG TAB PO PRN (15:38)
[2020-03-07] MEDS ORDERED: ALBUTEROL HFA INHALER INHALATION PRN (15:40)
[2020-03-07] MEDS: SODIUM CHLORIDE 0.9% 1,000 ML IV SCH (16:02)
[2020-03-07] MEDS: MAGNESIUM SULFATE-D5W PMX 1 GM in DEXTROSE/WATER 1 100ML.BAG IVPB SCH ×2 (16:03→18:29)
[2020-03-07 18:57] LABS: Ferritin 2529.5 ng/mL (10.0-291.0)
[2020-03-07] MEDS ORDERED: Magnesium Replacement Protocol 1 EACH MISC MISCELLANE PRN ×2 (19:49→19:53)
[2020-03-07] MEDS ORDERED: Potassium Replacement Protocol 1 EACH MISC MISCELLANE PRN ×2 (19:49→19:53)
[2020-03-07] MEDS ORDERED: IPRATROPIUM-ALBUTEROL 3 ML NEB INHALATION PRN (19:50)
[2020-03-07] MEDS ORDERED: ALPRAZolam 0.25 MG TAB PO PRN (19:51)
[2020-03-07] MEDS ORDERED: TEMAZEPAM 15 MG CAP PO PRN (19:51)
[2020-03-07] MEDS ORDERED: HYDROcodone/APAP 5-325MG 1 EACH TAB PO PRN (19:51)
[2020-03-07] MEDS: SYMBICORT 160-4.5 MCG INHALER INHALATION SCH (20:01)
[2020-03-07] MEDS: IPRATROPIUM-ALBUTEROL 3 ML NEB INHALATION SCH (20:01)
[2020-03-07] MEDS: HEPARIN SODIUM,PORCINE 5,000 UNIT/ML 1 ML VIAL SQ SCH (20:45)
[2020-03-07] MEDS: INSULIN ASPART (NovoLOG) 100 UNIT/ML VIAL SQ SCH (20:46)
[2020-03-07] MEDS: PRAVASTATIN SODIUM 20 MG TAB PO SCH (20:47)
--- NOTE | 2020-03-07 20:49 | CT ---
EXAMINATION TYPE: CT chest wo con DATE OF EXAM: 03/07/2020 COMPARISON: 09/17/2019 HISTORY: Chest pain weakness CT DLP: mGycm Automated exposure control for dose reduction was used. Images were obtained from the thoracic inlet to the diaphragm with no contrast. FINDINGS: The lungs are clear of infiltrate. There is no pleural effusion. Heart size is normal. There is no pe ricardial effusion. There is dense coronary artery calcification. Thoracic aorta is atheromatous. There is no mediastinal adenopathy. There are no hilar masses. There is some fatty infiltration of th e liver. Thoracic vertebra have normal alignment. Sternum is intact. There is no compression fracture. The rib s appear intact. IMPRESSION: Negative CT scan of the chest. No evidence of bronchopneumonia. No adverse change compared to old exa m. There is clearing of minimal interstitial density in the left lung base compared to old exam. Fatty infiltration of the liver unchanged.
[2020-03-07] MEDS: methylPREDNISolone SOD SUCCI 125 MG/2 ML VIAL IV SCH (20:54)
[2020-03-07] MEDS: AZITHROMYCIN 500 MG in SODIUM CHLORIDE 0.9% 250 ML IVPB SCH (22:07)
--- NOTE | 2020-03-07 23:27 | HP ---
HISTORY AND PHYSICAL CHIEF COMPLAINTS: Shortness of breath, cough and sputum. HISTORY OF PRESENT ILLNESS: This 60-year-old woman with a past medical history of multiple medical problems, including history of asthma, CAD, COPD, GERD, hypertension, hyperlipidemia, history of myocardial infarction, history of concussion, history of appendectomy, history of CAD, stent, being followed by Dr. Aj in the outpatient setting, was complaining of shortness of breath and cough for the past several weeks, almost 3 weeks. The patient has significant shortness of breath also which was increasing in intensity, and because of the increasing shortness of breath and cough with sputum production, the patient came to [facility] and was admitted for further evaluation. The patient also had intermittent wheezing. Chest x-ray showed some haziness in the right lower lobe. COVID-19 is negative. Pulmonary consultation is in progress at this time. There is no history of any fever, rigor or chills. No history of headache, loss of consciousness, seizures at this time. PAST MEDICAL HISTORY: History of asthma, CAD, COPD, GERD, hypertension, hyperlipidemia, history of myocardial infarction, appendectomy, history of CAD, stent. HOME MEDICATIONS: 1. Zoloft 25 mg p.o. daily. 2. Pravachol 10 mg at bedtime. 3. Omeprazole 20 mg p.o. daily. 4. Toprol-XL 25 mg p.o. daily. 5. Losartan 100 mg p.o. daily. 6. Claritin 10 mg p.o. daily. 7. Aspirin 81 mg p.o. daily. 8. Zyloprim 100 mg p.o. daily. ALLERGIES: NONE. FAMILY HISTORY: History of cancer. SOCIAL HISTORY: History of smoking. Occasional alcohol intake. REVIEW OF SYSTEMS: ENT: No diminished hearing. No diminished vision. CARDIOVASCULAR SYSTEM: No angina, palpitations. RESPIRATORY SYSTEM: No cough, hemoptysis. GI: As mentioned earlier. : No dysuria or retention. NERVOUS SYSTEM: No numbness, weakness. ALLERGY/IMMUNOLOGY: No asthma, hayfever. MUSCULOSKELETAL: As mentioned earlier. HEMATOLOGY/ONCOLOGY: No history of anemia. ENDOCRINE: No history of diabetes, hypothyroidism. CONSTITUTIONAL: As mentioned earlier. DERMATOLOGY: Negative. RHEUMATOLOGY: Negative. PSYCHIATRY: As mentioned earlier. PHYSICAL EXAMINATION: Patient is alert, oriented x3. Pulse is 76, blood pressure is 173/82, respiration 18, temperature 97.1, pulse ox 100% on 2 L. HEENT: Conjunctivae normal. NECK: No jugular venous distention. CARDIOVASCULAR SYSTEM: S1, S2 muffled. RESPIRATORY SYSTEM: Breath sounds diminished at the bases. Bilateral scattered rhonchi and crackles. ABDOMEN: Soft, non-tender. No mass palpable. LEGS: No edema. No swelling. NERVOUS SYSTEM: Higher functions as mentioned earlier. Moves all 4 limbs. No focal motor or sensory deficit. LYMPHATICS: No lymph node palpable in neck, axillae or groin. SKIN: No ulcer, rash, bleeding. JOINTS: No active deforming arthropathy. LABS: WBC 4.3, hemoglobin 13.9, platelets are 102. Sodium 131, potassium 3.3. Ferritin is 2529. ASSESSMENT: 1. Chronic obstructive pulmonary disease, acute exacerbation, with acute purulent tracheobronchitis, possible bronchopneumonia. 2. Rule out COVID-19 or influenza. 3. Thrombocytopenia. 4. Hyponatremia. 5. Hypokalemia. 6. Elevated random blood glucose. 7. Elevated ferritin. 8. Elevated AST, ALT. 9. Elevated LDH. 10.History of coronary artery disease. 11.History of chronic obstructive pulmonary disease. 12.History of gastroesophageal reflux disease. 13.History of asthma. 14.Hypertension. 15.Hyperlipidemia. 16.Myocardial infarction. 17.History of concussion. 18.History of nephrolithiasis. 19.History of eczema. 20.History of coronary artery disease, stent. 21.History of anxiety, depression. 22.Continued ongoing nicotine dependence. 23.FULL CODE. RECOMMENDATIONS AND DISCUSSION: In this 60-year-old woman who presented with multiple complex medical issues, we will monitor the patient closely, continue the current medications, intensive bronchodilator treatment. I would also recommend empiric antibiotics, IV steroids, and we will consult Dr. Mcleod. Guarded prognosis because of multiple complex medical issues. Flu test have been ordered. Further recommendations to follow. A copy of this dictation is being forwarded to Dr. Aj, who is the primary physician. MMODL / ADRIANA: [id number] /
[2020-03-08] MEDS: NICOTINE 21MG/24HR PATCH TRANSDERM SCH ×2 (00:29→08:31)
[2020-03-08] MEDS: methylPREDNISolone SOD SUCCI 125 MG/2 ML VIAL IV SCH ×5 (00:30→23:41)
[2020-03-08] MEDS: SODIUM CHLORIDE 0.9% 1,000 ML IV SCH ×2 (05:20→21:01)
[2020-03-08 06:52] LABS: Glucose,Whole Blood 161 mg/dL (75-99)
[2020-03-08 06:59] LABS: Basophils % (A) 0 %; Eosinophils % (A) 0 %; HCT 34.2 % (34.0-46.0); HGB 12.3 gm/dL (11.4-16.0); Lymphocytes # (A) 0.4 k/uL (1.0-4.8); Lymphocytes % (A) 13 %; MCH 35.8 pg (25.0-35.0); MCHC 35.9 g/dL (31.0-37.0); MCV 99.8 fL (80.0-100.0); Macrocytosis Slight; Mean Platelet Volume 8.6; Monocytes # (A) 0.1 k/uL (0-1.0); Monocytes % (A) 5 %; Neutrophils # (A) 2.3 k/uL (1.3-7.7); Neutrophils % (A) 81 %; RBC 3.42 m/uL (3.80-5.40); RDW 14.8 % (11.5-15.5); WBC 2.8 k/uL (3.8-10.6)
[2020-03-08] MEDS: HEPARIN SODIUM,PORCINE 5,000 UNIT/ML 1 ML VIAL SQ SCH ×2 (08:31→20:50)
[2020-03-08] MEDS: INSULIN ASPART (NovoLOG) 100 UNIT/ML VIAL SQ SCH ×4 (08:31→21:30)
[2020-03-08] MEDS: PANTOPRAZOLE 40 MG TABLET PO SCH (08:32)
[2020-03-08] MEDS: ASPIRIN 81 MG PO SCH (08:32)
[2020-03-08] MEDS: allopurinoL 100 MG TAB PO SCH (08:32)
[2020-03-08] MEDS: LORATADINE 10 MG TAB PO SCH (08:32)
[2020-03-08] MEDS: METOPROLOL SUCCINATE (ER) 25 MG TAB.ER.24H PO SCH (08:32)
[2020-03-08] MEDS: SERTRALINE 25 MG TAB PO SCH (08:32)
[2020-03-08] MEDS: LOSARTAN 50 MG TAB PO SCH (08:32)
[2020-03-08] MEDS: SYMBICORT 160-4.5 MCG INHALER INHALATION SCH ×2 (08:47→20:23)
[2020-03-08] MEDS: IPRATROPIUM-ALBUTEROL 3 ML NEB INHALATION SCH ×4 (08:47→20:43)
[2020-03-08 09:43] LABS: African American GFR (CKD) 115.6 (60.0-200.0); Anion Gap 5.3 mmol/L (4.00-12.00); BUN/Creat Ratio 21.67 Ratio (12.00-20.00); C Reactive Protein 0.6 mg/dL (0.0-0.8); Calcium 8.8 mg/dL (8.7-10.3); Carbon Dioxide 27.7 mmol/L (21.6-31.8); Magnesium 1.9 mg/dL (1.5-2.4); Non-African American GFR(CKD) 99.8 (60.0-200.0); Potassium 3.8 mmol/L (3.5-5.5)
[2020-03-08 10:14] LABS: Platelet Count 98 k/uL (150-450)
[2020-03-08 10:17] LABS: Ferritin 1945.4 ng/mL (10.0-291.0)
[2020-03-08 11:11] LABS: Glucose,Whole Blood 205 mg/dL (75-99)
[2020-03-08] MEDS: MULTIVITAMINS, THERA 1 EACH TAB PO SCH (13:20)
--- NOTE | 2020-03-08 14:58 | P.CNPUL ---
History of Present Illness Consult date: 03/08/20 Requesting physician: Tirso Bray Reason for consult: dyspnea Chief complaint: Prescription throat, earache, shortness of breath History of present illness: This is a pleasant 60-year-old female patient who follows with Dr. Aj as her primary care provider. She has a history of coronary artery disease with previous stent placement, anxiety/depression, hypertension, hyperlipidemia, gastroesophageal reflux disease, chronic obstructive pulmonary disease, chronic and ongoing tobacco dependence of greater than 40 years. She presented to the emergency room yesterday with complaints of increasing shortness of breath, cough and congestion. She had a sore throat and earache. Chest x-ray reveals evidence of chronic changes but no acute pulmonary process. Computed tomography scan of the chest was negative for any acute process. No bronchopneumonia. No adverse change compared to previous exam in September 2019. White count 2.8. Hemoglobin 12.3. Platelet count 98,000. D-dimer 0.64. Sodium 135. Potassium 3.8. Creatinine 0.6. Ferritin 1045. LDH 262. C-reactive protein 0.6. Flores virus not detected. Influenza A and B not detected. Patient is seen today in consultation on the regular medical floor. She is currently sitting up in bed. Awake and alert in no acute distress. HEENT O2 saturations up to 100% on 2 L per nasal cannula. She's afebrile. Currently on DuoNeb inhalations, Symbicort, IV Solu-Medrol. Empiric antibiotics in the form of ceftriaxone and azithromycin . NicoDerm patch in place. Review of Systems REVIEW OF SYSTEMS: CONSTITUTIONAL: Denies any recent significant weight loss or weight gain. EYES: Denies change in vision. EARS, NOSE, MOUTH, THROAT: Positive for sore throat, earache CARDIOVASCULAR: Denies chest pain, palpitations or syncopal episodes. RESPIRATORY: Positive for shortness of breath, cough, congestion no hemoptysis. GASTROINTESTINAL: Denies change in appetite, denies abdominal pain GENITOURINARY: Denies hematuria, denies infections. MUSKULOSKELETAL: Denies pain, denies swelling. INTEGUMENTARY: Denies rash, denies eczema. NEUROLOGICAL: Denies recent memory loss, no recent seizure activity. PSYCHIATRIC: Denies anxiety, denies depression. HEMATOLOGIC/LYMPHATIC: Denies anemia, denies enlarged lymph nodes. Past Medical History Past Medical History: Asthma, Coronary Artery Disease (CAD), COPD, GERD/Reflux, Hyperlipidemia, Hypertension, Myocardial Infarction (MS), Myocardial Infarction (non Q-wave), Skin Disorder Additional Past Medical History / Comment(s): HX CONCUSSION X3 CHILD. KIDNEY STONE X1. ECZEMA. MS AGE 40; POSS MS 11/24, TOLD NOT BY DRUG WORKER - BUT STENT REPLACED. LMP 2007. HX COLON POLYPS. Last Myocardial Infarction Date:: 12-07-13 History of Any Multi-Drug Resistant Organisms: None Reported Past Surgical History: Adenoidectomy, Appendectomy, Heart Catheterization With Stent, Orthopedic Surgery, Tonsillectomy, Tubal Ligation Additional Past Surgical History / Comment(s): Cardiac Stent 13 YEARS AGO, STENT REPLACED 12-07-13. ORIF LT ANKLE, HAS PLATE/6 SCREWS. Past Anesthesia/Blood Transfusion Reactions: Previous Problems w/ Anesthesia Additional Past Anesthesia/Blood Transfusion Reaction / Comment(s): HX LOW BLOOD PRESSURE X1 W/ COLONOSCOPY (AFTER MS). Date of Last Stent Placement:: 12/07/13 Past Psychological History: Anxiety, Depression Smoking Status: Current every day smoker Past Alcohol Use History: Daily Additional Past Alcohol Use History / Comment(s): SMOKING 35 YEARS, 1 PPD. Past Drug Use History: None Reported Additional Drug Use History / Comment(s): TEENAGER SMOKED MARIJUANA, NONE NOW. - Past Family History Father Family Medical History: No Reported History Additional Family Medical History / Comment(s): UNK Mother Family Medical History: Cancer Additional Family Medical History / Comment(s): AT AGE 62-CANCER Medications and Allergies Home Medications Medication Instructions Recorded Confirmed Type Omeprazole 20 mg PO DAILY 09/17/19 03/07/20 History Aspirin 81 mg PO DAILY chew 09/19/19 03/07/20 Rx Allopurinol [Zyloprim] 100 mg PO DAILY 03/07/20 03/07/20 History Loratadine [Claritin] 10 mg PO DAILY 03/07/20 03/07/20 History Losartan Potassium 100 mg PO DAILY 03/07/20 03/07/20 History Metoprolol Succinate [Toprol XL] 25 mg PO DAILY 03/07/20 03/07/20 History Pravastatin Sodium [Pravachol] 10 mg PO HS 03/07/20 03/07/20 History Sertraline [Zoloft] 25 mg PO DAILY 03/07/20 03/07/20 History Allergies Allergy/AdvReac Type Severity Reaction Status Date / Time No Known Allergies Allergy Verified 03/07/20 15:07 Physical Exam Vitals: Vital Signs Temp Pulse Pulse Resp BP BP Pulse Ox 03/08/20 14:00 99.0 F 77 17 152/77 100 03/08/20 12:12 73 03/08/20 11:59 72 03/08/20 09:03 80 03/08/20 08:48 80 03/08/20 07:42 98.3 F 89 17 168/91 98 03/08/20 07:20 89 17 03/08/20 00:40 98.3 F 76 16 164/76 99 03/07/20 20:05 98.0 F 91 20 160/82 99 03/07/20 20:00 98.2 F 83 18 160/100 99 03/07/20 18:29 76 18 173/82 100 Intake and Output 03/07/20 03/08/20 03/08/20 22:59 06:59 14:59 Other: Weight 62.596 kg GENERAL EXAM: Alert, active, pleasant 60-year-old female patient, on 2 L nasal cannula, comfortable in no apparent distress. HEAD: Normocephalic. EYES: Normal reaction of pupils, equal size. NOSE: Clear with pink turbinates. THROAT: No erythema or exudates. NECK: No masses, no JVD. CHEST: No chest wall deformity. LUNGS: Equal air entry with bilateral end expiratory wheeze, diminished. CVS: S1 and S2 normal with no audible murmur, regular rhythm. ABDOMEN: No hepatosplenomegaly, normal bowel sounds, no guarding or rigidity. SPINE: No scoliosis or deformity SKIN: No rashes CENTRAL NERVOUS SYSTEM: No focal deficits, tone is normal in all 4 extremities. EXTREMITIES: There is no peripheral edema. No clubbing, no cyanosis. Peripheral pulses are intact. Results - Laboratory Findings CBC and BMP: 03/08/20 06:41 03/08/20 06:41 PT/INR, D-dimer PT 9.7 sec (9.0-12.0) 03/07/20 13:47 INR 0.9 (<1.2) 03/07/20 13:47 D-Dimer 0.64 mg/L FEU (<0.60) H 03/08/20 06:41 Abnormal lab findings: Abnormal Labs 03/07/20 03/07/20 03/07/20 13:47 13:47 13:47 WBC RBC MCH Plt Count 102 L Lymphocytes # 0.9 L D-Dimer 0.67 H Sodium 131 L Potassium 3.3 L BUN/Creatinine Ratio Glucose 123 H POC Glucose (mg/dL) Magnesium 1.2 L Ferritin 2529.5 H AST 115 H ALT 47 H Lactate Dehydrogenase 772 H 03/08/20 03/08/20 03/08/20 06:41 06:41 06:41 WBC 2.8 L RBC 3.42 L MCH 35.8 H Plt Count 98 L Lymphocytes # 0.4 L D-Dimer 0.64 H Sodium Potassium BUN/Creatinine Ratio 21.67 H Glucose 147 H POC Glucose (mg/dL) Magnesium Ferritin 1945.4 H AST ALT Lactate Dehydrogenase 262 H 03/08/20 03/08/20 06:51 11:09 WBC RBC MCH Plt Count Lymphocytes # D-Dimer Sodium Potassium BUN/Creatinine Ratio Glucose POC Glucose (mg/dL) 161 H 205 H Magnesium Ferritin AST ALT Lactate Dehydrogenase - Diagnostic Findings Chest x-ray: image reviewed CT scan - chest: image reviewed Assessment and Plan Assessment: 1 Acute exacerbation of chronic obstructive pulmonary disease with no clear evidence of pneumonia 2 Acute hypoxic respiratory failure secondary to above 3 Chronic and ongoing tobacco dependence 4 Coronary artery disease with previous stent placement 5 Hypertension 6 Hyperlipidemia 7 History of anxiety/depression 8 Daily alcohol use Plan: The patient was seen and evaluated by Dr. Mcleod Chest x-ray, CAT scans and labs reviewed She is cleared for discharge from the pulmonary standpoint Titrate off the FiO2, currently 100% on 2 L Continue Symbicort, DuoNeb inhalations, albuterol HFA Continue a prednisone burst and taper starting at 40 mg daily for 4 days Continue empiric antibiotics in the form of azithromycin 500 mg for 5 days Follow-up with her PCP or in our office in 1-2 weeks' time Educated regarding the importance of complete smoking cessation I, the cosigning physician, performed a history & physical examination of the patient. Lungs sounds with end expiratory wheeze, diminished. Maintaining good O2 saturations in the 90s on 2 L/m per nasal cannula. I discussed the assessment and plan of care with my nurse practitioner, Sarina Zarate. I attest to the above consultation as dictated by her. Time with Patient: Greater than 30
[2020-03-08 16:24] LABS: Glucose,Whole Blood 166 mg/dL (75-99)
[2020-03-08] MEDS: PRAVASTATIN SODIUM 20 MG TAB PO SCH (20:50)
[2020-03-08] MEDS: AZITHROMYCIN 500 MG in SODIUM CHLORIDE 0.9% 250 ML IVPB SCH (20:53)
[2020-03-08 21:14] LABS: Glucose,Whole Blood 233 mg/dL (75-99)
--- NOTE | 2020-03-09 01:45 | PN ---
PROGRESS NOTE DATE OF SERVICE: 03/08/2020 This 60-year-old woman was admitted with COPD acute exacerbation, improved significantly. COVID-19 testing was pending at this time. The patient also has some elevated inflammatory markers. A chest CT was done and reviewed by me personally which showed no significant pneumonic process suggestive of COVID, no evidence of any bronchopneumonia also noted. Dr. Mcleod is following the patient closely. PAST MEDICAL HISTORY: Reviewed. REVIEW OF SYSTEMS: CARDIOVASCULAR SYSTEM: No angina. RESPIRATORY SYSTEM: As mentioned earlier. GI: As mentioned earlier. : No dysuria. NERVOUS SYSTEM: No numbness or weakness. CURRENT MEDICATIONS: Current medications are reviewed and include: Tylenol, [place], DuoNeb, Zyloprim, aspirin, Symbicort, Zithromax, Cozaar, Solu-Medrol. PHYSICAL EXAMINATION: Patient is alert and oriented x3. Pulse is 81, blood pressure 152/77, respiration 17, temperature 99 degrees, pulse ox 100% on 2 L. HEENT: Conjunctivae normal. NECK: No jugular venous distention. CARDIOVASCULAR: S1, S2 muffled. RESPIRATORY: Breath sounds diminished at the bases. Bilateral scattered rhonchi and crackles. ABDOMEN: Soft, nontender. LEGS: No edema, no swelling. NERVOUS SYSTEM: No focal deficits. LABS: WBC 2.8, hemoglobin 12.3. D-dimer is 0.64. Accu-Cheks noted. ASSESSMENT: 1. Chronic obstructive pulmonary disease acute exacerbation with acute purulent tracheobronchitis with possible bronchopneumonia. 2. COVID-19 ruled out. 3. Thrombocytopenia. 4. Hyponatremia. 5. Elevated D-dimer without any evidence of pulmonary embolism. 6. Hypokalemia. 7. Increased random blood sugar. 8. Elevated ferritin. 9. Increased AST, ALT, LDH. 10.History of coronary artery disease. 11.Chronic obstructive pulmonary disease. 12.Gastroesophageal reflux disease. 13.History of asthma. 14.Hypertension. 15.Hyperlipidemia. 16.History of myocardial infarction. 17.History of concussion. 18.History of nephrolithiasis. 19.History of eczema. 20.History of coronary artery disease, stent. 21.History of anxiety, depression. 22.Continued ongoing nicotine dependence. 23.FULL CODE. RECOMMENDATIONS AND DISCUSSION: Recommend to continue current medications, continue symptomatic treatment. Continue the antibiotics, bronchodilators, IV steroids. Closely follow with Dr. Mcleod. Guarded prognosis. Further recommendations to follow. MMODL / IJN: [id number] /
[2020-03-09] MEDS: methylPREDNISolone SOD SUCCI 125 MG/2 ML VIAL IV SCH ×2 (06:13→12:09)
[2020-03-09 07:11] LABS: Glucose,Whole Blood 158 mg/dL (75-99)
[2020-03-09] MEDS: SYMBICORT 160-4.5 MCG INHALER INHALATION SCH (07:39)
[2020-03-09] MEDS: IPRATROPIUM-ALBUTEROL 3 ML NEB INHALATION SCH (07:43)
[2020-03-09 07:54] LABS: Basophils % (A) 0 %; Eosinophils % (A) 1 %; HCT 37.1 % (34.0-46.0); HGB 12.3 gm/dL (11.4-16.0); Lymphocytes # (A) 0.5 k/uL (1.0-4.8); Lymphocytes % (A) 9 %; MCH 33.4 pg (25.0-35.0); MCHC 33.2 g/dL (31.0-37.0); MCV 100.5 fL (80.0-100.0); Macrocytosis Slight; Mean Platelet Volume 8.5; Monocytes # (A) 0.3 k/uL (0-1.0); Monocytes % (A) 5 %; Neutrophils # (A) 4.7 k/uL (1.3-7.7); Neutrophils % (A) 85 %; Platelet Count 122 k/uL (150-450); RBC 3.69 m/uL (3.80-5.40); RDW 15.1 % (11.5-15.5); WBC 5.6 k/uL (3.8-10.6)
[2020-03-09 07:59] VITALS: RESP 16
[2020-03-09] MEDS: MULTIVITAMINS, THERA 1 EACH TAB PO SCH (08:05)
[2020-03-09] MEDS: allopurinoL 100 MG TAB PO SCH (08:05)
[2020-03-09] MEDS: LORATADINE 10 MG TAB PO SCH (08:05)
[2020-03-09] MEDS: PANTOPRAZOLE 40 MG TABLET PO SCH (08:05)
[2020-03-09] MEDS: ASPIRIN 81 MG PO SCH (08:05)
[2020-03-09] MEDS: LOSARTAN 50 MG TAB PO SCH (08:05)
[2020-03-09] MEDS: METOPROLOL SUCCINATE (ER) 25 MG TAB.ER.24H PO SCH (08:05)
[2020-03-09] MEDS: SERTRALINE 25 MG TAB PO SCH (08:05)
[2020-03-09] MEDS: INSULIN ASPART (NovoLOG) 100 UNIT/ML VIAL SQ SCH ×2 (08:05→12:09)
[2020-03-09] MEDS: NICOTINE 21MG/24HR PATCH TRANSDERM SCH (08:05)
[2020-03-09] MEDS: HEPARIN SODIUM,PORCINE 5,000 UNIT/ML 1 ML VIAL SQ SCH (08:06)
[2020-03-09] MEDS: SODIUM CHLORIDE 0.9% 1,000 ML IV SCH (09:23)
--- NOTE | 2020-03-09 11:07 | CONS ---
CONSULTATION DATE OF SERVICE: 03/08/2020 REASON FOR CONSULTATION: Pneumonia, possible COVID-19. HISTORY OF PRESENT ILLNESS: The patient is a 60-year-old female with a past medical history significant for COPD, presenting to [facility] ER. Chief complaint is increasing shortness of breath. The patient has been getting worse for the last few weeks. The patient has been most complaining of increased shortness of breath. He also has a cough with occasional white sputum production. Denies any hemoptysis. The patient denies having any URI symptoms. No nausea, no vomiting. No abdominal pain or any diarrhea. The patient on arrival to the ER was afebrile and has satting 98-100% on 2 L nasal cannula. The patient did have mild leukopenia as well as lymphopenia. D-dimer was mildly elevated. CRP 0.6. LDH of 262. The patient did have a chest x-ray, chronic changes. No evidence for acute pulmonary process. CT of the chest did not show any bronchopneumonia. The patient is currently being treated with Rocephin, Zithromax, bronchodilator, steroids. Continue with concern with concern for possible COVID-19 infection. REVIEW OF SYSTEMS: Positive points have been mentioned in HPI. Rest of systems are negative. PAST MEDICAL HISTORY: COPD, asthma, coronary disease, hypertension, hyperlipidemia, [place]. PAST SURGICAL HISTORY: Adenoidectomy, appendectomy, PTCA with stent, tonsillectomy, tubal ligation. SOCIAL HISTORY: Current everyday smoker. Rarely drinks. No drug use. FAMILY HISTORY: Mother of cancer at age of 62. ALLERGIES: No known drug allergies. MEDICATIONS: The patient is currently on Tylenol, [place], DuoNeb, zyloprim, Xanax, aspirin, Rocephin, Zithromax, heparin, Dilaudid, NovoLog, Claritin, Cozaar, Solu-Medrol, Protonix, Pravachol, Zoloft. PHYSICAL EXAMINATION: Blood pressure 152/77 with a pulse of 77, temperature 99. She is 100% on 2 L. General description is a middle-aged female up in the bed in no distress. No tachypnea or accessory muscle of respiration use. HEENT: Examination shows no pallor or scleral icterus. Oral mucosa moist. NECK: Trachea central. No thyromegaly. LUNGS: Unlabored breathing. No wheeze. HEART: S1, S2. Regular rate and rhythm. ABDOMEN: Soft, no tenderness. EXTREMITIES: No edema of the feet. NEUROLOGIC: Patient is awake, alert, oriented. Mood and affect normal. LABS: Hemoglobin is 12.8, white count 2.8, BUN of 13, creatinine 0.6. White count has been normal. CRP 0.6. Chest x-ray and CT have been negative. DIAGNOSTIC IMPRESSION AND PLAN: Patient admitted to hospital with increasing shortness of breath and cough which is more likely related to underlying COPD exacerbation in this patient who did have a history of smoking and continues to smoke. The patient currently with no fever and with normal CRP and both CT and chest x-ray negative for any acute infiltrate making it to be less likely pneumonia and not behaving as a COVID-19 infection. PLAN: 1. Antibiotic can be safely discontinued. 2. Steroid and bronchodilator per Pulmonary. 3. If the patient has spike in her fever or change in her clinical condition, reculture and adjust antibiotic. Thank you for this consultation. I will follow this patient along with you. MMODL / IJN: [id number] /
[2020-03-09 11:33] LABS: Glucose,Whole Blood 133 mg/dL (75-99)
[2020-03-09 11:43] LABS: African American GFR (CKD) 109.9 (60.0-200.0); BUN/Creat Ratio 18.57 Ratio (12.00-20.00); C Reactive Protein <0.4 mg/dL (0.0-0.8); Calcium 9.3 mg/dL (8.7-10.3); Carbon Dioxide 26.7 mmol/L (21.6-31.8); Chloride 104 mmol/L (96-109); Ferritin 1695.5 ng/mL (10.0-291.0); Glucose 140 mg/dL (70-110); LDH 288 U/L (120-246); Non-African American GFR(CKD) 94.8 (60.0-200.0); Potassium 3.7 mmol/L (3.5-5.5); Sodium 138 mmol/L (135-145)
--- NOTE | 2020-03-09 15:05 | P.PN ---
Subjective Progress Note Date: 03/09/20 Principal diagnosis: Acute exacerbation of COPD This is a pleasant 60-year-old female patient who follows with Dr. Aj as her primary care provider. She has a history of coronary artery disease with previous stent placement, anxiety/depression, hypertension, hyperlipidemia, ga stroesophageal reflux disease, chronic obstructive pulmonary disease, chronic and ongoing tobacco dependence of greater than 40 years. She presented to the emergency room yesterday with complaints of increasing shortness of breath, cough and congestion. She had a sore throat and earache. Chest x-ray reveals evidence of chronic changes but no acute pulmonary process. Computed tomography scan of the chest was negative for any acute process. No bronchopneumonia. No adverse change compared to previous exam in September 2019. White count 2.8. Hemoglobin 12.3. Platelet count 98,000. D-dimer 0.64. Sodium 135. Potassium 3.8. Creatinine 0.6. Ferritin 1045. LDH 262. C-reactive protein 0.6. Flores virus not detected. Influenza A and B not detected. Patient is seen today in consultation on the regular medical floor. She is currently sitting up in bed. Awake and alert in no acute distress. HEENT O2 saturations up to 100% on 2 L per nasal cannula. She's afebrile. Currently on DuoNeb inhalations, Symbicort, IV Solu-Medrol. Empiric antibiotics in the form of ceftriaxone and azith romycin. NicoDerm patch in place. On 03/09/2020 patient seen in follow-up on general medical surgical floor. She sounds clear on today's exam, she has overall much improved since admission, breathing easier, she is on room air pulse ox is 97%, she's been afebrile, no chest pain, no hemoptysis, no nausea vomiting diarrhea, no abdominal pain, chest x-ray showed chronic changes, CT of the chest did not show any bronchopneumonia. Patient has been on Rocephin and Zithromax, IV steroids and bronchodilators, clinically improving. Objective - Vital Signs Vital signs: Vital Signs Temp 98.2 F 03/09/20 07:58 Pulse 77 03/09/20 08:00 Resp 16 03/09/20 08:00 BP 162/91 03/09/20 07:58 Pulse Ox 97 03/09/20 07:58 Intake & Output 03/08/20 03/09/20 03/09/20 18:59 06:59 18:59 Intake Total 400 Balance 400 Intake: Intake, IV Titration 50 Amount cefTRIAXone 1 gm In 50 Sodium Chloride 0.9% 50 ml @ 100 mls/hr IVPB Q24HR [facility] Rx#:[id number] Oral 350 Other: Voiding Method Toilet Toilet # Voids 3 1 - Exam GENERAL EXAM: Alert, very pleasant 60-year-old white female on room air with a pulse ox of 97% comfortable in no apparent distress. HEAD: Normocephalic/atraumatic. EYES: Normal reaction of pupils, equal size. Conjunctiva pink, sclera white. NOSE: Clear with pink turbinates. THROAT: No erythema or exudates. NECK: No masses, no JVD, no thyroid enlargement, no adenopathy. CHEST: No chest wall deformity. Symmetrical expansion. LUNGS: Equal air entry with no crackles, wheeze, rhonchi or dullness. CVS: Regular rate and rhythm, normal S1 and S2, no gallops, no murmurs, no rubs ABDOMEN: Soft, nontender. No hepatosplenomegaly, normal bowel sounds, no guarding or rigidity. EXTREMITIES: No clubbing, no edema, no cyanosis, 2+ pulses and upper and lower extremities. MUSCULOSKELETAL: Muscle strength and tone normal. SPINE: No scoliosis or deformity SKIN: No rashes CENTRAL NERVOUS SYSTEM: Alert and oriented -3. No focal deficits, tone is normal in all 4 extremities. PSYCHIATRIC: Alert and oriented -3. Appropriate affect. Intact judgment and insight. - Labs CBC & Chem 7: 03/09/20 07:11 03/09/20 07:11 Labs: Abnormal Lab Results - Last 24 Hours (Table) 03/08/20 03/08/20 03/09/20 Range/Units 16:23 21:12 07:05 RBC (3.80-5.40) m/uL MCV (80.0-100.0) fL Plt Count (150-450) k/uL Lymphocytes # (1.0-4.8) k/uL D-Dimer (<0.60) mg/L FEU Glucose (70-110) mg/dL POC Glucose (mg/dL) 166 H 233 H 158 H (75-99) mg/dL Ferritin (10.0-291.0) ng/mL Lactate Dehydrogenase (120-246) U/L 03/09/20 03/09/20 03/09/20 Range/Units 07:11 07:11 07:11 RBC 3.69 L (3.80-5.40) m/uL MCV 100.5 H (80.0-100.0) fL Plt Count 122 L (150-450) k/uL Lymphocytes # 0.5 L (1.0-4.8) k/uL D-Dimer 1.02 H (<0.60) mg/L FEU Glucose 140 H (70-110) mg/dL POC Glucose (mg/dL) (75-99) mg/dL Ferritin 1695.5 H (10.0-291.0) ng/mL Lactate Dehydrogenase 288 H (120-246) U/L 03/09/20 Range/Units 11:30 RBC (3.80-5.40) m/uL MCV (80.0-100.0) fL Plt Count (150-450) k/uL Lymphocytes # (1.0-4.8) k/uL D-Dimer (<0.60) mg/L FEU Glucose (70-110) mg/dL POC Glucose (mg/dL) 133 H (75-99) mg/dL Ferritin (10.0-291.0) ng/mL Lactate Dehydrogenase (120-246) U/L Microbiology - Last 24 Hours (Table) 03/07/20 13:53 Blood Culture - Preliminary Blood No Growth after 24 hours Assessment and Plan Plan: Assessment: 1 Acute exacerbation of chronic obstructive pulmonary disease with no clear evidence of pneumonia 2 Acute hypoxic respiratory failure secondary to above 3 Chronic and ongoing tobacco dependence 4 Coronary artery disease with previous stent placement 5 Hypertension 6 Hyperlipidemia 7 History of anxiety/depression 8 Daily alcohol use Plan: Continue current medical treatment, antibiotics, nebulized bronchodilators, patient has significantly improved since admission, breathing easier, less bronchospastic, less short of breath. From pulmonary perspective she could be considered for discharge home today with outpatient follow-up after French in the office I performed a history & physical examination of the patient and discussed their management with my nurse practitioner, Alisson Hayes. I reviewed the nurse practitioner's note and agree with the documented findings and plan of care. Lung sounds are positive for diminished breath sounds The findings and the impression was discussed with the patient. I attest to the documentation by the nurse practitioner. Time with Patient: Less than 30
[2020-03-09 15:20] VITALS: BP 163/92; PULSE 70; TEMP 98.3
--- NOTE | 2020-03-09 17:13 | PN ---
PROGRESS NOTE DATE OF SERVICE: 03/09/2020 REASON FOR FOLLOWUP: COVID INTERVAL HISTORY: The patient is seen on rounds this afternoon. The patient was afebrile. The patient was feeling better. She was breathing comfortably, denies having any chest pain. Did have a cough which had decreased in intensity. No nausea, no vomiting. No abdominal pain, no diarrhea. PHYSICAL EXAMINATION: Blood pressure 130/90 with a pulse of 78, temperature 99.2. She is 95% on room air. General description is a middle-aged female, up in the bed in no distress. RESPIRATORY SYSTEM: Unlabored breathing, decreased breath sounds in the base, with no wheeze. HEART: S1, S2. Regular. ABDOMEN: Soft, no tenderness. LABS: Hemoglobin 12.1, white count 5.6, creatinine 0.7. CRP less than 4, though LDL compared high, though coming down. Blood culture negative. DIAGNOSTIC IMPRESSION AND PLAN: Patient admitted to the hospital with shortness of breath, more likely decreased vision with the clinically not behaving as pneumonia with overall improvement with steroids; to continue and close outpatient followup. MMODL / IJN: [id number] /
--- NOTE | 2020-03-09 21:54 | P.DS ---
Providers Date of admission: 03/07/20 15:33 Expected date of discharge: 03/09/20 Attending physician: Tirso Bray Consults: 03/07/20 19:49 Consult Physician Routine Consulting Provider: Ari Mcleod Consult Reason/Comments: copd Do you want consulting provider notified?: Yes 03/07/20 19:50 Consult Physician Routine Consulting Provider: Nilson Mckeon Consult Reason/Comments: covid Do you want consulting provider notified?: Yes Primary care physician: Jean Marie Ng [facility] Course: Final diagnosis Chronic obstructive pulmonary disease acute exacerbation with acute purulent tracheobronchitis with possible bronchopneumonia Covid 19 ruled out Thrombocytopenia Hyponatremia Elevated d-dimer without any evidence of PE Hypokalemia Increased random blood sugar Elevated ferritin Increased AST, ALT, LDH history of coronary artery disease COPD GERD History of asthma Hypertension Hyperlipidemia history of myocardial infarction history of concussion History of nephrolithiasis History of eczema history of coronary artery disease, stent History of anxiety, depression Continued ongoing nicotine dependence Full code Discharge disposition Patient is being discharged in a stable condition with guarded prognosis to home. Patient will follow-up with Dr. Aj in the outpatient setting upon discharge. Patient to follow up with Dr. Mcleod outpatient as well. Patient is to continue with prednisone taper along with ceftin and zithromax to complete the course. Total time taken is 35 minutes. History of present illness This is a 60-year-old male who was recently admitted with COPD exacerbation and acute purulent tracheobronchitis and was being closely monitored. Patient was initiated on IV steroids along with breathing inhalational treatments and was tested for Covid 19 all was negative. CTA was negative as well. Patient will continue with a prednisone taper in the outpatient setting along with oral ceftin 500mg bid and zithromax 500mg daily for the next 3 days to complete the course. Patient will also continue with the prednisone taper upon discharge. Patient is feeling better and would like to go home. Currently no reports of chest pain, worsening shortness of breath, or palpitations. Patient is afebrile. No reports of nausea or vomiting and patient is tolerating diet. Patient will be discharged home today. On exam vital signs are stable. Temp is 98.3F, pulse is 70, respirations are 16, blood pressure is 163/92, oxygen saturation is 95% on room air. Cardio S1, S2 are muffled. Respiratory system shows diminished breath sounds at the bases with some wheezing noted. Abdomen is soft and nontender. Nervous system shows no focal deficits. Please refer to medication reconciliation sheet for a list of medications. Patient Condition at Discharge: Fair Plan - Discharge Summary Discharge Rx Participant: Yes New Discharge Prescriptions: New Cefuroxime Axetil [Ceftin] 500 mg PO BID 3 Days #6 tab Multivitamins, Thera [Multivitamin (formulary)] 1 each PO DAILY@1200 30 Days #30 tab predniSONE 10 mg PO DIRECTED #30 tab Budesonide-Formot 160-4.5 Mcg [Symbicort 160-4.5 Mcg Inhaler] 2 puff INHALATION RT-BID 30 Days #1 puff Azithromycin [Zithromax] 500 mg PO DAILY 3 Days #3 tab Continue Omeprazole 20 mg PO DAILY Aspirin 81 mg PO DAILY chew Sertraline [Zoloft] 25 mg PO DAILY Pravastatin Sodium [Pravachol] 10 mg PO HS Metoprolol Succinate [Toprol XL] 25 mg PO DAILY Losartan Potassium 100 mg PO DAILY Loratadine [Claritin] 10 mg PO DAILY Allopurinol [Zyloprim] 100 mg PO DAILY Discharge Medication List Omeprazole 20 mg PO DAILY 09/17/19 [History] Aspirin 81 mg PO DAILY chew 09/19/19 [Rx] Allopurinol [Zyloprim] 100 mg PO DAILY 03/07/20 [History] Loratadine [Claritin] 10 mg PO DAILY 03/07/20 [History] Losartan Potassium 100 mg PO DAILY 03/07/20 [History] Metoprolol Succinate [Toprol XL] 25 mg PO DAILY 03/07/20 [History] Pravastatin Sodium [Pravachol] 10 mg PO HS 03/07/20 [History] Sertraline [Zoloft] 25 mg PO DAILY 03/07/20 [History] Azithromycin [Zithromax] 500 mg PO DAILY 3 Days #3 tab 03/09/20 [Rx] Budesonide-Formot 160-4.5 Mcg [Symbicort 160-4.5 Mcg Inhaler] 2 puff INHALATION RT-BID 30 Days #1 puff 03/09/20 [Rx] Cefuroxime Axetil [Ceftin] 500 mg PO BID 3 Days #6 tab 03/09/20 [Rx] Multivitamins, Thera [Multivitamin (formulary)] 1 each PO DAILY@1200 30 Days #30 tab 03/09/20 [Rx] predniSONE 10 mg PO DIRECTED #30 tab 03/09/20 [Rx] Follow up Appointment(s)/Referral(s): Ari Mcleod MD [STAFF PHYSICIAN] - 1 Week Cally Aj MD [Primary Care Provider] - 1-2 days Patient Instructions/Handouts: COPD (Chronic Obstructive Pulmonary Disease) (DC) Activity/Diet/Wound Care/Special Instructions: Activity Limited until follow-up Follow-up with primary care provider upon discharge Continue current diet Continue with prednisone taper Continue with antibiotics until finished Discharge Disposition: HOME SELF-CARE
--- NOTE | 2020-03-12 13:49 | CDI ---
Documentation Clarification Form Date: 03/12/20 From: Grace Kellogg Phone: If you have a question about this query, please contact Gris Gillette, [employer] Senior [employer] at [phone] between 8am and 5pm. Admit Date: 03/07/20 Discharge Date:03/09/20 Patient Name: Gloria Visit Number: [id number] ATTENTION: The Clinical Documentation Specialists (CDI) and [facility] Coding Staff appreciate your assistance in clarifying documentation. Please respond to the clarification below the line at the bottom and electronically sign. The CDI & [facility] Coding staff will review the response and follow-up if needed. Please note: Queries are made part of the Legal Health Record. If you have any questions, please contact the author of this message via ITS. Dear Dr. Bray The diagnosis acute hypoxic respiratory failure was documented in the pulmonology consult note and 03/09 progress note, but is not noted in subsequent documentation. History/Risk Factors: COPD exacerbation, acute bronchitis, possible bronchopneumonia, smoker, CAD, history of NH Clinical Indicators: Increasing shortness of breath, cough, sputum production Tobacco Use: Current everyday smoker Home Oxygen: None Lung/Breathing Assessment: Intermittent wheezing, breath sounds diminished at the bases. Bilateral scattered rhonchi and crackles. Vital signs: T. 97.1, P. 131, R. 20, BP 148/83 Pulse Ox.: 98% on room air on admission, 100% on 2 L/min per nasal cannula 6 hours later Treatment: Breathing tx: Ventolin and Duoneb inhalation O2: 2 - 3 L/min per nasal cannula Please clarify if the acute hypoxic respiratory failure was Present/active this admission Treated and resolved this admission Ruled out Other, please specify Clinically unable to determine Ruled out MTDD
== END 2020-03-09 15:35 | disposition home or self-care (01) ==
LOC: EC 12:53 → UNDOADMOB 15:33 → 4SSUR 15:33 → INTOOBSV 15:33 → 4SSUR 15:33 → UNDODISOB 03-09 15:35
PROVIDERS: ADMIT Hospitalist; ATTEND Hospitalist
DX: J44.1 Chronic obstructive pulmonary disease with (acute) exacerbation (principal); E87.1 Hypo-osmolality and hyponatremia; J44.0 Chronic obstructive pulmonary disease with (acute) lower respiratory infection; J20.9 Acute bronchitis, unspecified; D69.6 Thrombocytopenia, unspecified; K21.9 Gastro-esophageal reflux disease without esophagitis; D72.810 Lymphocytopenia; E83.42 Hypomagnesemia; E87.6 Hypokalemia; F17.210 Nicotine dependence, cigarettes, uncomplicated; D72.819 Decreased white blood cell count, unspecified; Z20.828 Contact with and (suspected) exposure to other viral communicable diseases; E78.5 Hyperlipidemia, unspecified; I10 Essential (primary) hypertension; I25.10 Atherosclerotic heart disease of native coronary artery without angina pectoris; I25.2 Old myocardial infarction; F32.9 Major depressive disorder, single episode, unspecified; F41.9 Anxiety disorder, unspecified; L30.9 Dermatitis, unspecified; R74.01 Elevation of levels of liver transaminase levels; R74.02 Elevation of levels of lactic acid dehydrogenase [LDH]; R79.89 Other specified abnormal findings of blood chemistry; R73.9 Hyperglycemia, unspecified; R94.31 Abnormal electrocardiogram [ECG] [EKG]; Z79.82 Long term (current) use of aspirin; Z79.899 Other long term (current) drug therapy; Z95.5 Presence of coronary angioplasty implant and graft; Z87.820 Personal history of traumatic brain injury; Z87.442 Personal history of urinary calculi; Z90.49 Acquired absence of other specified parts of digestive tract; Z87.19 Personal history of other diseases of the digestive system; Z90.89 Acquired absence of other organs; Z98.51 Tubal ligation status; Z98.890 Other specified postprocedural states; Z86.010 Personal history of colon polyps; Z87.81 Personal history of (healed) traumatic fracture; Z80.9 Family history of malignant neoplasm, unspecified
CPT/HCPCS: 96376 ×3; 96366 ×3; 96367; 96372 ×2; 96365; 96375; 99285; 36415; 94640 ×5; 94760; 93005; 85379 ×3; 80053; 80048 ×2; 82728 ×3; 83605; 83615 ×3; 83735 ×2; 84484; 85025 ×3; 85610; 85730; 86140 ×3; 87040; 87502; 84145; 87635; 71045; 71250; G0378 ×3; U0003; S4990 ×2; J1644 ×2; J2930 ×3; J0456 ×2; J0696 ×3; J3475

== ENCOUNTER 2020-09-11 20:35 | Inpatient (IN) | payer OTHER ==
[2020-09-11] MEDS ORDERED: SODIUM CHLORIDE 0.9% 1,000 ML IV STA ×2 (22:06→23:06)
--- NOTE | 2020-09-11 22:17 | ED ---
General Adult HPI - General Chief complaint: Weakness Stated complaint: Weakness Time Seen by Provider: 09/11/20 21:08 Source: patient, EMS, RN notes reviewed Mode of arrival: EMS Limitations: no limitations - History of Present Illness Initial comments: 60-year-old white female presents to the emergency room with complaints of weakness and diffuse abdominal pain for the past 2 days. Patient states she was fine on Thursday, yesterday developed vomiting which was watery. Patient states tried drinking Coke and vomited an hour later tried water and vomited. Today patient states having small amounts of diarrhea every hour. Patient denies fevers, no sick contacts. Patient states hasn't had food in 3 days. Patient also complaining of right hip pain but denies falls. Patient states does smoke 2 packs a day. Patient has history of asthma and COPD, coronary artery disease, GERD, hypertension, and HI. Patient also had a history of an appendectomy and tubal ligation. Patient states she does drink on weekends anywhere from a pint to a fifth on the weekends. Patient's main complaint today is abdominal pain. Patient also states she has had tailbone pain since she was little but no acute injuries. -: days(s) (2) Location: abdomen Radiation: non-radiation Severity scale (1-10): 0 (Pain only with movement or palpation) Quality: other (Pain only with palpation, "feels like intestines twisted") Consistency: intermittent Improves with: immobilization, rest Worsens with: movement Associated Symptoms: nausea/vomiting, weakness Treatments Prior to Arrival: none - Related Data Home Medications Medication Instructions Recorded Confirmed Loratadine [Claritin] 10 mg PO DAILY 03/07/20 09/11/20 Losartan Potassium 100 mg PO DAILY 03/07/20 09/11/20 Metoprolol Succinate [Toprol XL] 25 mg PO DAILY 03/07/20 09/11/20 Pravastatin Sodium [Pravachol] 10 mg PO HS 03/07/20 09/11/20 Sertraline [Zoloft] 25 mg PO HS 03/07/20 09/11/20 Famotidine 10 mg PO BID 09/11/20 09/11/20 Multivitamins, Thera [Multivitamin 1 tab PO DAILY@1200 09/11/20 09/11/20 (formulary)] Previous Rx's Medication Instructions Recorded Aspirin 81 mg PO DAILY chew 09/19/19 Allergies Allergy/AdvReac Type Severity Reaction Status Date / Time No Known Allergies Allergy Verified 09/11/20 20:48 Review of Systems ROS Statement: Those systems with pertinent positive or pertinent negative responses have been documented in the HPI. ROS Other: All systems not noted in ROS Statement are negative. Past Medical History Past Medical History: Asthma, Coronary Artery Disease (CAD), COPD, GERD/Reflux, Hyperlipidemia, Hypertension, Myocardial Infarction (HI), Myocardial Infarction (non Q-wave), Skin Disorder Additional Past Medical History / Comment(s): HX CONCUSSION X3 CHILD. KIDNEY STONE X1. ECZEMA. 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 LMP 2007. HX COLON POLYPS. Last Myocardial Infarction Date:: 12-07-13 History of Any Multi-Drug Resistant Organisms: None Reported Past Surgical History: Adenoidectomy, Appendectomy, Heart Catheterization With Stent, Orthopedic Surgery, Tonsillectomy, Tubal Ligation Additional Past Surgical History / Comment(s): Cardiac Stent 13 YEARS AGO, STENT REPLACED 12-07-13. ORIF LT ANKLE, HAS PLATE/6 SCREWS. Past Anesthesia/Blood Transfusion Reactions: Previous Problems w/ Anesthesia Additional Past Anesthesia/Blood Transfusion Reaction / Comment(s): HX LOW BLOOD PRESSURE X1 W/ COLONOSCOPY (AFTER HI). Date of Last Stent Placement:: 12/07/13 Past Psychological History: Anxiety, Depression Smoking Status: Current every day smoker Past Alcohol Use History: Daily Past Drug Use History: None Reported - Past Family History Father Family Medical History: No Reported History Additional Family Medical History / Comment(s): UNK Mother Family Medical History: Cancer Additional Family Medical History / Comment(s): AT AGE 62-CANCER General Exam Limitations: no limitations General appearance: alert, in no apparent distress Head exam: Present: atraumatic, normocephalic, normal inspection Eye exam: Present: PERRL, EOMI, scleral icterus, conjunctival injection. Absent: periorbital swelling, periorbital tenderness Pupils: Present: normal accommodation ENT exam: Present: normal exam, normal oropharynx, mucous membranes moist Neck exam: Present: normal inspection, full ROM. Absent: tenderness, meningismus, lymphadenopathy, thyromegaly Respiratory exam: Present: normal lung sounds bilaterally. Absent: respiratory distress, wheezes, rales, rhonchi, stridor, chest wall tenderness, accessory muscle use Cardiovascular Exam: Present: regular rate, normal rhythm, normal heart sounds. Absent: systolic murmur, diastolic murmur, rubs, gallop, clicks GI/Abdominal exam: Present: soft, tenderness, normal bowel sounds. Absent: guarding, rebound, rigid, mass, bruit, pulsatile mass, hernia Rectal exam: Present: deferred External exam: Present: erythema (Left groin) Extremities exam: Present: normal capillary refill, other (3 circular erythemato us rashes to the left lower extremity patient states has been there for over 6 weeks). Absent: tenderness, pedal edema, joint swelling, calf tenderness Right Hip exam: Present: tenderness. Absent: full ROM, swelling, abrasion, laceration, ecchymosis, deformity, erythema (Pain with internal and external rotation), shortening, pelvic stability Upper Leg exam: Present: full ROM Knee exam: Present: full ROM Lower Leg exam: Present: full ROM Ankle exam: Present: full ROM Foot/Toe exam: Present: full ROM Neurovascular tendon exam: Present: no vascular compromise. Absent: pulse deficit, abnormal cap refill, motor deficit, sensory deficit, extremity cold to touch, pallor, foot drop Back exam: Present: normal inspection. Absent: tenderness, CVA tenderness (R), CVA tenderness (L), paraspinal tenderness, vertebral tenderness Neurological exam: Present: alert, oriented X3, CN II-XII intact Psychiatric exam: Present: normal affect, normal mood Skin exam: Present: warm, dry, rash (Left lower extremity 3 circular patches, left groin erythematous, forehead erythema) Course Vital Signs 09/11/20 20:49 Temperature 97.9 F Pulse Rate 84 Respiratory 18 Rate Blood Pressure 139/72 O2 Sat by Pulse 98 Oximetry EKG Findings - EKG Comments: EKG Findings:: QTC today's 0.668, QTc 03/07/2020 was 0.486 - EKG Results: EKG: sinus rhythm (Ventricular rate of 84, AL interval 0.122, QRS of 0.82, QTC prolonged at 0.668) Medical Decision Making - Medical Decision Making WBC count is 8.9, hemoglobin and hematocrit is 12 and 35 respectively, lactic acid is 2.3, potassium is 1.9 which was replaced with 40 of K-Dur and 30meq IV piggyback, lipase 3812, amylase is 582, total bili 2.9 AST 170, AST 64, alk p hos 293. Labs are consistent with acute pancreatitis, patient given a liter bolus and maintenance fluid of any 130 mL an hour. Magnesium is pending. CT shows nonobstructing right renal calculus with fat stranding in the retroperitoneum on the right side. Some wall thickening of the duodenum which could be duodenitis, moderate fatty infiltration of liver. There is no ascites or free air. There is no compression fractures, pelvis is intact, and hip joints are intact, appendix is seen and there is no sign of thickened appendix. Case discussed WITH Dr. Rojas will admit patient to Dr. Bray. - Lab Data Result diagrams: 09/11/20 22:25 09/11/20 22:25 Lab Results 09/11/20 09/11/20 09/11/20 Range/Units 22:25 22:25 22:25 WBC 8.9 (3.8-10.6) k/uL RBC 3.41 L (3.80-5.40) m/uL Hgb 12.5 (11.4-16.0) gm/dL Hct 35.2 (34.0-46.0) % MCV 103.4 H (80.0-100.0) fL MCH 36.6 H (25.0-35.0) pg MCHC 35.4 (31.0-37.0) g/dL RDW 13.6 (11.5-15.5) % Plt Count 202 (150-450) k/uL MPV 9.2 Neutrophils % 80 % Lymphocytes % 14 % Monocytes % 4 % Eosinophils % 1 % Basophils % 0 % Neutrophils # 7.1 (1.3-7.7) k/uL Lymphocytes # 1.3 (1.0-4.8) k/uL Monocytes # 0.4 (0-1.0) k/uL Eosinophils # 0.1 (0-0.7) k/uL Basophils # 0.0 (0-0.2) k/uL Macrocytosis Slight PT 12.4 H (9.0-12.0) sec INR 1.2 H (<1.2) APTT 23.9 (22.0-30.0) sec Sodium 137 (137-145) mmol/L Potassium 1.9 L* (3.5-5.1) mmol/L Chloride 98 (98-107) mmol/L Carbon Dioxide 32 H (22-30) mmol/L Anion Gap 7 mmol/L BUN 7 (7-17) mg/dL Creatinine 0.55 (0.52-1.04) mg/dL Est GFR (CKD-EPI)AfAm >90 (>60 ml/min/1.73 sqM) Est GFR (CKD-EPI)NonAf >90 (>60 ml/min/1.73 sqM) Glucose 111 H (74-99) mg/dL Plasma Lactic Acid Afshin (0.7-2.0) mmol/L Calcium 9.1 (8.4-10.2) mg/dL Total Bilirubin 2.9 H (0.2-1.3) mg/dL AST 170 H (14-36) U/L ALT 64 H (4-34) U/L Alkaline Phosphatase 293 H (38-126) U/L Troponin I (0.000-0.034) ng/mL Total Protein 6.5 (6.3-8.2) g/dL Albumin 3.4 L (3.5-5.0) g/dL Amylase 582 H* (30-110) U/L Lipase 3812 H (23-300) U/L 09/11/20 09/11/20 Range/Units 22:25 22:25 WBC (3.8-10.6) k/uL RBC (3.80-5.40) m/uL Hgb (11.4-16.0) gm/dL Hct (34.0-46.0) % MCV (80.0-100.0) fL MCH (25.0-35.0) pg MCHC (31.0-37.0) g/dL RDW (11.5-15.5) % Plt Count (150-450) k/uL MPV Neutrophils % % Lymphocytes % % Monocytes % % Eosinophils % % Basophils % % Neutrophils # (1.3-7.7) k/uL Lymphocytes # (1.0-4.8) k/uL Monocytes # (0-1.0) k/uL Eosinophils # (0-0.7) k/uL Basophils # (0-0.2) k/uL Macrocytosis PT (9.0-12.0) sec INR (<1.2) APTT (22.0-30.0) sec Sodium (137-145) mmol/L Potassium (3.5-5.1) mmol/L Chloride (98-107) mmol/L Carbon Dioxide (22-30) mmol/L Anion Gap mmol/L BUN (7-17) mg/dL Creatinine (0.52-1.04) mg/dL Est GFR (CKD-EPI)AfAm (>60 ml/min/1.73 sqM) Est GFR (CKD-EPI)NonAf (>60 ml/min/1.73 sqM) Glucose (74-99) mg/dL Plasma Lactic Acid Afshin 2.3 H* (0.7-2.0) mmol/L Calcium (8.4-10.2) mg/dL Total Bilirubin (0.2-1.3) mg/dL AST (14-36) U/L ALT (4-34) U/L Alkaline Phosphatase (38-126) U/L Troponin I <0.012 (0.000-0.034) ng/mL Total Protein (6.3-8.2) g/dL Albumin (3.5-5.0) g/dL Amylase (30-110) U/L Lipase (23-300) U/L Disposition Clinical Impression: Hypokalemia, Acute pancreatitis Disposition: ADMITTED IP TO THIS [facility] Condition: Fair Referrals: Cally Aj MD [Primary Care Provider] - 1-2 days Decision Date: 09/11/20 Decision Time: 23:04
[2020-09-11 22:36] LABS: Basophils % (A) 0 %; Eosinophils # (A) 0.1 k/uL (0-0.7); Eosinophils % (A) 1 %; HCT 35.2 % (34.0-46.0); HGB 12.5 gm/dL (11.4-16.0); Lymphocytes # (A) 1.3 k/uL (1.0-4.8); Lymphocytes % (A) 14 %; MCH 36.6 pg (25.0-35.0); MCHC 35.4 g/dL (31.0-37.0); MCV 103.4 fL (80.0-100.0); Macrocytosis Slight; Mean Platelet Volume 9.2; Monocytes # (A) 0.4 k/uL (0-1.0); Monocytes % (A) 4 %; Neutrophils # (A) 7.1 k/uL (1.3-7.7); Neutrophils % (A) 80 %; Platelet Count 202 k/uL (150-450); RBC 3.41 m/uL (3.80-5.40); RDW 13.6 % (11.5-15.5); WBC 8.9 k/uL (3.8-10.6)
[2020-09-11 22:45] LABS: ALT 64 U/L (4-34); AST 170 U/L (14-36); African American GFR (CKD) >90 (>60 ml/min/1.73 sqM); Albumin 3.4 g/dL (3.5-5.0); Alkaline Phosphatase 293 U/L (38-126); Anion Gap 7 mmol/L; Blood Urea Nitrogen 7 mg/dL (7-17); Calcium 9.1 mg/dL (8.4-10.2); Carbon Dioxide 32 mmol/L (22-30); Chloride 98 mmol/L (98-107); Glucose 111 mg/dL (74-99); Non-African American GFR(CKD) >90 (>60 ml/min/1.73 sqM); Sodium 137 mmol/L (137-145); Total Bilirubin 2.9 mg/dL (0.2-1.3); Total Protein 6.5 g/dL (6.3-8.2)
[2020-09-11 22:49] LABS: Amylase 582 U/L (30-110); Potassium 1.9 mmol/L (3.5-5.1)
[2020-09-11] MEDS ORDERED: POTASSIUM CHLORIDE ER 20 MEQ TAB.ER PO STA (22:49)
[2020-09-11] MEDS ORDERED: POTASSIUM CHLORIDE 10 MEQ in WATER FOR INJECTION 1 100ML.BAG IVPB STA (22:49)
[2020-09-11 22:53] LABS: INR 1.2 (<1.2); Partial Thromboplastin Time 23.9 sec (22.0-30.0); Prothrombin Time 12.4 sec (9.0-12.0)
--- NOTE | 2020-09-11 23:13 | CT ---
EXAMINATION TYPE: CT abdomen pelvis wo con DATE OF EXAM: 09/11/2020 COMPARISON: 05/08/2019 HISTORY: Abdominal pain, weakness. Pt states she cannot stand. CT DLP: 552.2 mGycm Automated exposure control for dose reduction was used. Images obtained from the diaphragm to the floor the pelvis with no contrast. Lung bases are clear. There is no pleural effusion. There is diffuse fatty replacement of the liver. Spleen is intact. I see no pancreatic mass. Gallbladder is borderline dilated and measures 4.6 cm. Th e bile ducts are not dilated. There is no adrenal mass. Kidneys have normal size. There is 6 mm calculus lower pole right kidney. T here is no retroperitoneal adenopathy. There is no hydronephrosis. Ureters are not dilated. There is some fat stranding around the right kidney in the anterior pararenal space. There is some wall thicke saad of the descending duodenum. The cecum is in the right mid abdomen. Appendix is not seen. There i s no sign of thickened appendix. Uterus is anteverted. There is no free fluid in the pelvis. There is no mesenteric edema. There is no ascites or free air. The lumbar vertebra have normal alignment. There is no compression fracture. Bony pelvis is intact. T he hip joints are intact. There is no hip dysplasia. IMPRESSION: Nonobstructing right renal calculus. Fat stranding in the retroperitoneum on the right side in the an terior perirenal space with some wall thickening of the duodenum. This could relate to duodenitis. Moderate fatty infiltration of the liver.
--- NOTE | 2020-09-11 23:22 | XR ---
EXAMINATION TYPE: XR Hip Complete RT DATE OF EXAM: 09/11/2020 COMPARISON: NONE HISTORY: Hip pain TECHNIQUE: 2 views FINDINGS: I see no fracture nor dislocation. Hip joint space is fairly normal. IMPRESSION: Negative right hip exam.
--- NOTE | 2020-09-11 23:23 | XR ---
EXAMINATION TYPE: XR KUB DATE OF EXAM: 09/11/2020 COMPARISON: NONE HISTORY: Right-sided abdominal pain TECHNIQUE: 2 views supine FINDINGS: There is no sign of intestinal obstruction or pneumoperitoneum. Fecal pattern is normal. Th ere is no evidence of a mass. There are no pathologic calcifications over the kidneys. IMPRESSION: Nonacute abdomen.
[2020-09-11] MEDS ORDERED: ACETAMINOPHEN TAB 325 MG TAB PO PRN (23:35)
[2020-09-11] MEDS ORDERED: NALOXONE 0.4 MG/ML 1 ML VIAL IV PRN (23:35)
[2020-09-11] MEDS ORDERED: THIAMINE 100 MG/ML 2 ML VIAL IM STA (23:42)
[2020-09-11] MEDS ORDERED: LORazepam 2 MG/ML INJ IV PRN ×3 (23:42)
[2020-09-11 23:44] LABS: Lipase 3812 U/L (23-300)
[2020-09-12 01:34] LABS: Appearance,Urine Cloudy (Clear); Bacteria,Urine Many /hpf; Bilirubin,Urine Negative (Negative); Blood,Urine Trace (Negative); Color,Urine Yellow; Glucose,Urine (UA) Negative (Negative); Granular Casts,Urine 1 /lpf (0); Hyaline Casts,Urine 3 /lpf (0-2); Ketones,Urine Negative (Negative); Leukocyte Esterase,Urine Large (Negative); Mucus,Urine Rare /hpf; Nitrite,Urine Negative (Negative); PH, Urine 6.5 (5.0-8.0); Protein,Urine 1+ (Negative); Specific Gravity,Urine 1.012 (1.001-1.035); Squamous Epithelial Cell,Urine 4 /hpf (0-4); WBC,Urine 71 /hpf (0-5)
[2020-09-12] MEDS: POTASSIUM CHLORIDE 10 MEQ in WATER FOR INJECTION 1 100ML.BAG IVPB SCH ×2 (02:11→04:47)
[2020-09-12] MEDS: 0.9% NACL WITH KCL 20 MEQ/L 1,000 ML IV SCH ×2 (06:41→10:51)
[2020-09-12] MEDS: MAGNESIUM SULFATE-D5W PMX 1 GM in DEXTROSE/WATER 1 100ML.BAG IVPB SCH ×3 (14:30→16:58)
[2020-09-12] MEDS: PANTOPRAZOLE 40 MG/10 ML VIAL IVP SCH ×2 (14:31→20:23)
--- NOTE | 2020-09-12 14:33 | P.HPIM ---
History of Present Illness 60-year-old female came in with the comments of severe epigastric abdominal pain. Patient does drink alcohol on regular basis last drink was yesterday night. Patient's he sees she drinks about a pint of alcohol every day. Patient is found to have peritonitis with elevated lipase and amylase. Patient states she will try to quit alcohol. Patient is being admitted for acute alcoholic pancreatitis and alcohol withdrawal. Patient does have history of COPD can use to smoke. Review of Systems REVIEW OF SYSTEMS: CONSTITUTIONAL: No fever, no malaise, no fatigue. HEENT: No recent visual problems or hearing problems. Denied any sore throat. CARDIOVASCULAR: No chest pain, orthopnea, PND, no palpitations, no syncope. PULMONARY: No shortness of breath, no cough, no hemoptysis. GASTROINTESTINAL: As mentioned in HPI NEUROLOGICAL: No headaches, no weakness, no numbness. HEMATOLOGICAL: Denies any bleeding or petechiae. GENITOURINARY: Denies any burning micturition, frequency, or urgency. MUSCULOSKELETAL/RHEUMATOLOGICAL: Denies any joint pain, swelling, or any muscle pain. ENDOCRINE: Denies any polyuria or polydipsia. The rest of the 14-point review of systems is negative. Past Medical History Past Medical History: Asthma, Coronary Artery Disease (CAD), COPD, GERD/Reflux, Hyperlipidemia, Hypertension, Myocardial Infarction ([place]), Myocardial Infarction (non Q-wave), Skin Disorder Additional Past Medical History / Comment(s): HX CONCUSSION X3 CHILD. KIDNEY STONE X1. ECZEMA. [place] AGE 40; POSS [place] 11/24, TOLD NOT BY PURIFICATION DIRECTOR - BUT STENT REPLACED. LMP 2007. HX COLON POLYPS. Last Myocardial Infarction Date:: 12-07-13 History of Any Multi-Drug Resistant Organisms: None Reported Past Surgical History: Adenoidectomy, Appendectomy, Heart Catheterization With Stent, Orthopedic Surgery, Tonsillectomy, Tubal Ligation Additional Past Surgical History / Comment(s): Cardiac Stent 13 YEARS AGO, STENT REPLACED 12-07-13. ORIF LT ANKLE, HAS PLATE/6 SCREWS. Past Anesthesia/Blood Transfusion Reactions: Previous Problems w/ Anesthesia Additional Past Anesthesia/Blood Transfusion Reaction / Comment(s): HX LOW BLOOD PRESSURE X1 W/ COLONOSCOPY (AFTER [place]). Date of Last Stent Placement:: 12/07/13 Past Psychological History: Anxiety, Depression Smoking Status: Current every day smoker Past Alcohol Use History: Daily Past Drug Use History: None Reported - Past Family History Father Family Medical History: No Reported History Additional Family Medical History / Comment(s): UNK Mother Family Medical History: Cancer Additional Family Medical History / Comment(s): AT AGE 62-CANCER Medications and Allergies Home Medications Medication Instructions Recorded Confirmed Type Aspirin 81 mg PO DAILY chew 09/19/19 09/11/20 Rx Loratadine [Claritin] 10 mg PO DAILY 03/07/20 09/11/20 History Losartan Potassium 100 mg PO DAILY 03/07/20 09/11/20 History Metoprolol Succinate [Toprol XL] 25 mg PO DAILY 03/07/20 09/11/20 History Pravastatin Sodium [Pravachol] 10 mg PO HS 03/07/20 09/11/20 History Sertraline [Zoloft] 25 mg PO HS 03/07/20 09/11/20 History Famotidine 10 mg PO BID 09/11/20 09/11/20 History Multivitamins, Thera [Multivitamin 1 tab PO DAILY@1200 09/11/20 09/11/20 History (formulary)] Allergies Allergy/AdvReac Type Severity Reaction Status Date / Time No Known Allergies Allergy Verified 09/11/20 20:48 Physical Exam Vitals: Vital Signs Temp Pulse Resp BP Pulse Ox 09/12/20 13:52 78 18 132/87 97 09/12/20 10:41 71 18 127/71 97 09/12/20 08:09 74 18 140/81 97 09/12/20 06:24 84 16 136/58 96 09/12/20 04:00 83 18 150/82 99 09/12/20 02:16 98.1 F 74 18 141/80 98 09/12/20 01:00 88 18 134/79 99 09/11/20 20:49 97.9 F 84 18 139/72 98 Intake and Output 09/11/20 09/12/20 09/12/20 22:59 06:59 14:59 Other: Weight 60.917 kg PHYSICAL EXAMINATION: GENERAL: The patient is alert and oriented x3, not in any acute distress. Well developed, well nourished. HEENT: Pupils are round and equally reacting to light. EOMI. No scleral icterus. No conjunctival pallor. Normocephalic, atraumatic. No pharyngeal erythema. No thyromegaly. CARDIOVASCULAR: S1 and S2 present. No murmurs, rubs, or gallops. PULMONARY: Chest is clear to auscultation, no wheezing or crackles. ABDOMEN: Does have a mild to moderate tenderness in the epigastric area nondistended, normoactive bowel sounds. No palpable organomegaly. MUSCULOSKELETAL: No joint swelling or deformity. EXTREMITIES: No cyanosis, clubbing, or pedal edema. NEUROLOGICAL: Gross neurological examination did not reveal any focal deficits. SKIN: No rashes. Results CBC & Chem 7: 09/11/20 22:25 09/11/20 22:25 Labs: Abnormal Lab Results - Last 24 Hours (Table) 09/11/20 09/11/20 09/11/20 Range/Units 22:25 22:25 22:25 RBC 3.41 L (3.80-5.40) m/uL MCV 103.4 H (80.0-100.0) fL MCH 36.6 H (25.0-35.0) pg PT 12.4 H (9.0-12.0) sec INR 1.2 H (<1.2) Potassium 1.9 L* (3.5-5.1) mmol/L Carbon Dioxide 32 H (22-30) mmol/L Glucose 111 H (74-99) mg/dL Plasma Lactic Acid Afshin (0.7-2.0) mmol/L Magnesium (1.6-2.3) mg/dL Total Bilirubin 2.9 H (0.2-1.3) mg/dL AST 170 H (14-36) U/L ALT 64 H (4-34) U/L Alkaline Phosphatase 293 H (38-126) U/L Albumin 3.4 L (3.5-5.0) g/dL Amylase 582 H* (30-110) U/L Lipase 3812 H (23-300) U/L Urine Appearance (Clear) Urine Protein (Negative) Urine Blood (Negative) Ur Leukocyte Esterase (Negative) Urine WBC (0-5) /hpf Urine Bacteria (None) /hpf Hyaline Casts (0-2) /lpf Urine Mucus (None) /hpf 09/11/20 09/11/20 09/12/20 Range/Units 22:25 22:32 00:53 RBC (3.80-5.40) m/uL MCV (80.0-100.0) fL MCH (25.0-35.0) pg PT (9.0-12.0) sec INR (<1.2) Potassium (3.5-5.1) mmol/L Carbon Dioxide (22-30) mmol/L Glucose (74-99) mg/dL Plasma Lactic Acid Afshin 2.3 H* (0.7-2.0) mmol/L Magnesium 0.9 L* (1.6-2.3) mg/dL Total Bilirubin (0.2-1.3) mg/dL AST (14-36) U/L ALT (4-34) U/L Alkaline Phosphatase (38-126) U/L Albumin (3.5-5.0) g/dL Amylase (30-110) U/L Lipase (23-300) U/L Urine Appearance Cloudy H (Clear) Urine Protein 1+ H (Negative) Urine Blood Trace H (Negative) Ur Leukocyte Esterase Large H (Negative) Urine WBC 71 H (0-5) /hpf Urine Bacteria Many H (None) /hpf Hyaline Casts 3 H (0-2) /lpf Urine Mucus Rare H (None) /hpf Microbiology - Last 24 Hours (Table) 09/12/20 00:53 Urine Culture - Preliminary Urine,Voided Assessment and Plan Plan: -Acute alcoholic pancreatitis: Patient will remain nothing by mouth continue with IV fluids. -Alcohol abuse: Counseling was provided -alcohol withdrawal patient will be on Ativan 0 -Nicotine use and COPD without any acute exacerbation. -Gastroesophageal reflux disease -Hyperlipidemia -Hypertension -Depression -Hypokalemia secondary to hyponatremia -Hypomagnesemia secondary to alcoholism both of these will be replaced. -DVT prophylaxis: Subcu denies heparin
[2020-09-12] MEDS: SERTRALINE 25 MG TAB PO SCH (20:24)
[2020-09-12] MEDS: PRAVASTATIN SODIUM 20 MG TAB PO SCH (20:24)
[2020-09-12 20:35] LABS: African American GFR (CKD) >90 (>60 ml/min/1.73 sqM); Anion Gap 6 mmol/L; Blood Urea Nitrogen 5 mg/dL (7-17); Calcium 7.9 mg/dL (8.4-10.2); Carbon Dioxide 29 mmol/L (22-30); Chloride 107 mmol/L (98-107); Glucose 96 mg/dL (74-99); Magnesium 2.3 mg/dL (1.6-2.3); Non-African American GFR(CKD) >90 (>60 ml/min/1.73 sqM); Sodium 142 mmol/L (137-145)
[2020-09-12 20:44] LABS: Potassium 1.9 mmol/L (3.5-5.1)
[2020-09-12] MEDS ORDERED: Potassium Replacement Protocol 1 EACH MISC MISCELLANE PRN (21:18)
[2020-09-12] MEDS: POTASSIUM CHLORIDE ER 20 MEQ TAB.ER PO SCH ×2 (21:44→23:51)
[2020-09-12] MEDS: POTASSIUM CHLORIDE 20 MEQ in WATER FOR INJECTION 1 100ML.BAG IVPB SCH ×2 (22:09→23:51)
[2020-09-13] MEDS: POTASSIUM CHLORIDE ER 20 MEQ TAB.ER PO SCH ×6 (01:49→20:05)
[2020-09-13] MEDS: POTASSIUM CHLORIDE 20 MEQ in WATER FOR INJECTION 1 100ML.BAG IVPB SCH ×2 (01:50→03:44)
[2020-09-13] MEDS: 0.9% NACL WITH KCL 20 MEQ/L 1,000 ML IV SCH ×2 (03:50→08:10)
[2020-09-13 08:03] LABS: HGB 11.2 gm/dL (11.4-16.0); MCH 36.1 pg (25.0-35.0); MCV 105.9 fL (80.0-100.0); Macrocytosis Moderate; Mean Platelet Volume 8.6; Platelet Count 174 k/uL (150-450); RBC 3.12 m/uL (3.80-5.40); RDW 13.8 % (11.5-15.5); WBC 6.5 k/uL (3.8-10.6)
[2020-09-13] MEDS: METOPROLOL SUCCINATE (ER) 25 MG TAB.ER.24H PO SCH (08:10)
[2020-09-13] MEDS: LORATADINE 10 MG TAB PO SCH (08:10)
[2020-09-13] MEDS: PANTOPRAZOLE 40 MG/10 ML VIAL IVP SCH ×2 (08:10→20:07)
[2020-09-13 08:30] LABS: ALT 45 U/L (4-34); AST 107 U/L (14-36); African American GFR (CKD) >90 (>60 ml/min/1.73 sqM); Albumin 2.9 g/dL (3.5-5.0); Alkaline Phosphatase 255 U/L (38-126); Anion Gap 5 mmol/L; Blood Urea Nitrogen 4 mg/dL (7-17); Calcium 7.5 mg/dL (8.4-10.2); Carbon Dioxide 26 mmol/L (22-30); Chloride 114 mmol/L (98-107); Globulin 2.8 g/dL; Glucose 86 mg/dL (74-99); Non-African American GFR(CKD) >90 (>60 ml/min/1.73 sqM); Potassium 2.9 mmol/L (3.5-5.1); Sodium 145 mmol/L (137-145); Total Bilirubin 1.6 mg/dL (0.2-1.3); Total Protein 5.7 g/dL (6.3-8.2)
[2020-09-13 09:26] LABS: Lipase 4454 U/L (23-300)
[2020-09-13] MEDS: SODIUM CHLORIDE 0.45% 1,000 ML with POTASSIUM CHLORIDE 20 MEQ IV SCH ×4 (11:46→21:06)
--- NOTE | 2020-09-13 14:22 | P.PN ---
Subjective 60-year-old female came in with the comments of severe epigastric abdominal pain. Patient does drink alcohol on regular basis last drink was yesterday night. Patient's he sees she drinks about a pint of alcohol every day. Patient is found to have peritonitis with elevated lipase and amylase. Patient states she will try to quit alcohol. Patient is being admitted for acute alcoholic pancreatitis and alcohol withdrawal. Patient does have history of COPD can use to smoke. 09/13/2020 Patient abdominal pain improved patient is hungry but Lipase went up to 4000 because of which he patient will remain nothing by mouth. Patient doesn't have any alcohol withdrawals at this time. Constitutional: Denied any fatigue denied any fever. Cardio vascular: denied any chest pain, palpitations Gastrointestinal denied any nausea vomiting Pulmonary: Denied any shortness of breath cough Neurologic denied any new focal deficits All inpatient medications were reviewed and appropriate changes in these medications as dictated in the interval history and assessment and plan. Objective - Vital Signs Vital signs: Vital Signs Temp 98.3 F 09/13/20 11:27 Pulse 84 09/13/20 11:27 Resp 16 09/13/20 11:27 BP 177/91 09/13/20 11:27 Pulse Ox 97 09/13/20 11:27 Intake & Output 09/12/20 09/13/20 09/13/20 18:59 06:59 18:59 Weight 60.917 kg Other: Voiding Method Bedside Commode Bedside Commode # Voids 3 2 1 # Bowel Movements 1 1 - Exam PHYSICAL EXAMINATION: GENERAL: The patient is alert and oriented x3, not in any acute distress. Well developed, well nourished. HEENT: Pupils are round and equally reacting to light. EOMI. No scleral icterus. No conjunctival pallor. Normocephalic, atraumatic. No pharyngeal erythema. No thyromegaly. CARDIOVASCULAR: S1 and S2 present. No murmurs, rubs, or gallops. PULMONARY: Chest is clear to auscultation, no wheezing or crackles. ABDOMEN: Does have a mild to moderate tenderness in the epigastric area nondistended, normoactive bowel sounds. No palpable organomegaly. MUSCULOSKELETAL: No joint swelling or deformity. EXTREMITIES: No cyanosis, clubbing, or pedal edema. NEUROLOGICAL: Gross neurological examination did not reveal any focal deficits. SKIN: No rashes. - Labs CBC & Chem 7: 06/03/21 07:00 09/13/20 07:00 Labs: Abnormal Lab Results - Last 24 Hours (Table) 09/12/20 09/13/20 09/13/20 Range/Units 20:03 07:00 07:00 RBC 3.12 L (3.80-5.40) m/uL Hgb 11.2 L (11.4-16.0) gm/dL Hct 33.0 L (34.0-46.0) % MCV 105.9 H (80.0-100.0) fL MCH 36.1 H (25.0-35.0) pg Potassium 1.9 L* 2.9 L (3.5-5.1) mmol/L Chloride 114 H (98-107) mmol/L BUN 5 L 4 L (7-17) mg/dL Creatinine 0.37 L 0.42 L (0.52-1.04) mg/dL Calcium 7.9 L 7.5 L (8.4-10.2) mg/dL Total Bilirubin 1.6 H (0.2-1.3) mg/dL AST 107 H (14-36) U/L ALT 45 H (4-34) U/L Alkaline Phosphatase 255 H (38-126) U/L Total Protein 5.7 L (6.3-8.2) g/dL Albumin 2.9 L (3.5-5.0) g/dL Lipase 4454 H (23-300) U/L Microbiology - Last 24 Hours (Table) 09/12/20 00:53 Urine Culture - Preliminary Urine,Voided Gram Neg Bacilli Assessment and Plan Plan: -Acute alcoholic pancreatitis: Patient will remain nothing by mouth continue with IV fluids. -Alcohol abuse: Counseling was provided -alcohol withdrawal patient will be on Ativan CIWA protocol presently doesn't have any withdrawals. -Nicotine use and COPD without any acute exacerbation. -Gastroesophageal reflux disease -Hyperlipidemia -Hypertension -Depression -Hypokalemia secondary to hypomagnesemia replacing -Hypomagnesemia secondary to alcoholism, replaced -DVT prophylaxis: Subcu heparin
[2020-09-13] MEDS: SERTRALINE 25 MG TAB PO SCH (20:05)
[2020-09-13] MEDS: PRAVASTATIN SODIUM 20 MG TAB PO SCH (20:05)
[2020-09-14] MEDS: POTASSIUM CHLORIDE ER 20 MEQ TAB.ER PO SCH ×2 (00:56)
[2020-09-14] MEDS ORDERED: FUROSEMIDE 10 MG/ML 4 ML VIAL IV STA (01:46)
--- NOTE | 2020-09-14 02:47 | XR ---
EXAM: XR Chest, 1 View CLINICAL HISTORY: ITS. REASON XR Reason: Shortness of breath TECHNIQUE: Frontal view of the chest. COMPARISON: Chest CT of 03/07/20 FINDINGS: Lungs: Subsegmental right mid and lower lung atelectasis has developed since the prior study. Difficult to exclude a coexisting airspace infiltrate. Pleural space: Unremarkable. No pneumothorax. Heart: Unremarkable. No cardiomegaly. Mediastinum: Unremarkable. Bones/joints: Unremarkable. IMPRESSION: Subsegmental right mid and lower lung atelectasis has developed since the prior study. Difficult to exclude a coexisting airspace infiltrate.
[2020-09-14 06:59] LABS: HCT 33.8 % (34.0-46.0); HGB 11.2 gm/dL (11.4-16.0); MCHC 33.3 g/dL (31.0-37.0); MCV 108.2 fL (80.0-100.0); Macrocytosis Moderate; Platelet Count 169 k/uL (150-450); RBC 3.12 m/uL (3.80-5.40); RDW 14.1 % (11.5-15.5); WBC 7.5 k/uL (3.8-10.6)
[2020-09-14] MEDS: METOPROLOL SUCCINATE (ER) 25 MG TAB.ER.24H PO SCH (08:13)
[2020-09-14] MEDS: PANTOPRAZOLE 40 MG/10 ML VIAL IVP SCH ×2 (08:14→20:48)
[2020-09-14] MEDS: LORATADINE 10 MG TAB PO SCH (08:14)
[2020-09-14 13:24] LABS: African American GFR (CKD) 122.8 (60.0-200.0); Albumin 3.1 g/dL (3.80-4.90); Albumin/Globulin Ratio 1.19 (1.60-3.17); Anion Gap 12.6 mmol/L (4.00-12.00); Calcium 8.1 mg/dL (8.7-10.3); Carbon Dioxide 21.4 mmol/L (21.6-31.8); Globulin 2.6 g/dL (1.6-3.3); Non-African American GFR(CKD) 105.9 (60.0-200.0); Potassium 3.6 mmol/L (3.5-5.5); Total Bilirubin 1.3 mg/dL (0.2-1.2); Total Protein 5.7 g/dL (6.2-8.2)
[2020-09-14 13:55] VITALS: BMI 23.8
[2020-09-14] MEDS: SODIUM CHLORIDE 0.45% 1,000 ML with POTASSIUM CHLORIDE 20 MEQ IV SCH ×4 (14:55→19:31)
[2020-09-14] MEDS ORDERED: POTASSIUM CHLORIDE ER 20 MEQ TAB.ER PO SCH (15:30)
--- NOTE | 2020-09-14 15:43 | P.PN ---
Subjective 60-year-old female came in with the comments of severe epigastric abdominal pain. Patient does drink alcohol on regular basis last drink was yesterday night. Patient's he sees she drinks about a pint of alcohol every day. Patient is found to have peritonitis with elevated lipase and amylase. Patient states she will try to quit alcohol. Patient is being admitted for acute alcoholic pancreatitis and alcohol withdrawal. Patient does have history of COPD can use to smoke. 09/13/2020 Patient abdominal pain improved patient is hungry but Lipase went up to 4000 because of which he patient will remain nothing by mouth. Patient doesn't have any alcohol withdrawals at this time. 09/14/2020 Patient lipase improved patient's symptoms improved patient was started on diet and will advance her diet. Patient did not receive any Ativan today for withdrawals although she did receive yesterday. Constitutional: Denied any fatigue denied any fever. Cardio vascular: denied any chest pain, palpitations Gastrointestinal denied any nausea vomiting Pulmonary: Denied any shortness of breath cough Neurologic denied any new focal deficits All inpatient medications were reviewed and appropriate changes in these medications as dictated in the interval history and assessment and plan. Objective - Vital Signs Vital signs: Vital Signs Temp 97.9 F 09/14/20 13:03 Pulse 115 H 09/14/20 13:03 Resp 20 09/14/20 13:03 BP 139/99 09/14/20 13:03 Pulse Ox 97 09/14/20 13:03 Intake & Output 09/13/20 09/14/20 09/14/20 18:59 06:59 18:59 Intake Total 1200 600 Balance 1200 600 Weight 60.917 kg Intake: Intake, IV Titration 1200 600 Amount Sodium Chloride 0.45% 1, 1200 600 000 ml @ 100 mls/hr IV . Q10H6M GAGAN with Potassium Chloride 20 meq Rx#: [id number] Oral 0 Other: Voiding Method Bedside Commode Bedside Commode Bedside Commode # Voids 1 4 # Bowel Movements 1 - Exam PHYSICAL EXAMINATION: GENERAL: The patient is alert and oriented x3, not in any acute distress. Well developed, well nourished. HEENT: Pupils are round and equally reacting to light. EOMI. No scleral icterus. No conjunctival pallor. Normocephalic, atraumatic. No pharyngeal erythema. No thyromegaly. CARDIOVASCULAR: S1 and S2 present. No murmurs, rubs, or gallops. PULMONARY: Chest is clear to auscultation, no wheezing or crackles. ABDOMEN: Does have a mild to moderate tenderness in the epigastric area nondistended, normoactive bowel sounds. No palpable organomegaly. MUSCULOSKELETAL: No joint swelling or deformity. EXTREMITIES: No cyanosis, clubbing, or pedal edema. NEUROLOGICAL: Gross neurological examination did not reveal any focal deficits. SKIN: No rashes. - Labs CBC & Chem 7: 09/14/20 06:43 09/14/20 06:43 Labs: Abnormal Lab Results - Last 24 Hours (Table) 09/13/20 09/14/20 09/14/20 Range/Units 17:38 06:43 06:43 RBC 3.12 L (3.80-5.40) m/uL Hgb 11.2 L (11.4-16.0) gm/dL Hct 33.8 L (34.0-46.0) % MCV 108.2 H (80.0-100.0) fL MCH 36.0 H (25.0-35.0) pg Sodium 148 H (135-145) mmol/L Potassium 3.0 L (3.5-5.1) mmol/L Chloride 114 H (96-109) mmol/L Carbon Dioxide 21.4 L (21.6-31.8) mmol/L Anion Gap 12.60 H (4.00-12.00) mmol/L BUN 7.0 L (9.0-27.0) mg/dL Creatinine 0.5 L (0.6-1.5) mg/dL Calcium 8.1 L (8.7-10.3) mg/dL Total Bilirubin 1.3 H (0.2-1.2) mg/dL AST 99 H (13-35) U/L ALT 50 H (8-44) U/L Alkaline Phosphatase 280 H (41-126) U/L Total Protein 5.7 L (6.2-8.2) g/dL Albumin 3.10 L (3.80-4.90) g/dL Albumin/Globulin Ratio 1.19 L (1.60-3.17) g/dL Lipase 815 H (14-63) U/L Microbiology - Last 24 Hours (Table) 09/12/20 00:53 Urine Culture - Final Urine,Voided Escherichia coli Assessment and Plan Plan: -Acute alcoholic pancreatitis: Symptoms improved patient will be started on diet and will advance the diet -Alcohol abuse: Counseling was provided -alcohol withdrawal patient will be on Ativan CIWA protocol presently doesn't marshall ve any withdrawals. -Nicotine use and COPD without any acute exacerbation. -Gastroesophageal reflux disease -Hyperlipidemia -Hypertension -Depression -Hypokalemia secondary to hypomagnesemia replacing -Hypomagnesemia secondary to alcoholism, replaced -DVT prophylaxis: Subcu heparin
[2020-09-14] MEDS: PRAVASTATIN SODIUM 20 MG TAB PO SCH (20:49)
[2020-09-14] MEDS: SERTRALINE 25 MG TAB PO SCH (20:49)
[2020-09-15] MEDS: SODIUM CHLORIDE 0.45% 1,000 ML with POTASSIUM CHLORIDE 20 MEQ IV SCH ×2 (03:05)
[2020-09-15 08:02] LABS: African American GFR (CKD) >90 (>60 ml/min/1.73 sqM); Anion Gap 4 mmol/L; Blood Urea Nitrogen 3 mg/dL (7-17); Calcium 7.5 mg/dL (8.4-10.2); Carbon Dioxide 26 mmol/L (22-30); Chloride 107 mmol/L (98-107); Glucose 109 mg/dL (74-99); Magnesium 1.3 mg/dL (1.6-2.3); Non-African American GFR(CKD) >90 (>60 ml/min/1.73 sqM); Sodium 137 mmol/L (137-145)
[2020-09-15] MEDS: METOPROLOL SUCCINATE (ER) 25 MG TAB.ER.24H PO SCH (08:12)
[2020-09-15] MEDS: LORATADINE 10 MG TAB PO SCH (08:13)
[2020-09-15] MEDS: PANTOPRAZOLE 40 MG/10 ML VIAL IVP SCH ×2 (08:13→20:39)
[2020-09-15 08:19] LABS: Potassium 2.5 mmol/L (3.5-5.1)
[2020-09-15] MEDS: MAGNESIUM SULFATE-D5W PMX 1 GM in DEXTROSE/WATER 1 100ML.BAG IVPB SCH ×3 (11:08→14:28)
[2020-09-15] MEDS: POTASSIUM CHLORIDE ER 20 MEQ TAB.ER PO SCH ×7 (11:11→21:54)
--- NOTE | 2020-09-15 16:03 | P.PN ---
Subjective 60-year-old female came in with the comments of severe epigastric abdominal pain. Patient does drink alcohol on regular basis last drink was yesterday night. Patient's he sees she drinks about a pint of alcohol every day. Patient is found to have peritonitis with elevated lipase and amylase. Patient states she will try to quit alcohol. Patient is being admitted for acute alcoholic pancreatitis and alcohol withdrawal. Patient does have history of COPD can use to smoke. 09/13/2020 Patient abdominal pain improved patient is hungry but Lipase went up to 4000 because of which he patient will remain nothing by mouth. Patient doesn't have any alcohol withdrawals at this time. 09/14/2020 Patient lipase improved patient's symptoms improved patient was started on diet and will advance her diet. Patient did not receive any Ativan today for withdrawals although she did receive yesterday. 09/15/2020 Patient started having abdominal pain again which is in bilateral lower abdominal quadrants but lipase is elevated again. Patient the did have soft diet today after which she started having abdominal pain patient was switched back to full liquid diet and will repeat lipase and patient was started on IV IV fluids again. Gastroenterology will be consulted. Constitutional: Denied any fatigue denied any fever. Cardio vascular: denied any chest pain, palpitations Gastrointestinal denied any nausea vomiting Pulmonary: Denied any shortness of breath cough Neurologic denied any new focal deficits All inpatient medications were reviewed and appropriate changes in these medications as dictated in the interval history and assessment and plan. Objective - Vital Signs Vital signs: Vital Signs Temp 97.0 F L 09/15/20 12:48 Pulse 85 09/15/20 12:48 Resp 18 09/15/20 12:48 BP 102/66 09/15/20 12:48 Pulse Ox 98 09/15/20 12:48 Intake & Output 09/14/20 09/15/20 09/15/20 18:59 06:59 18:59 Intake Total 700 Balance 700 Weight 60.917 kg Intake: Oral 700 Other: Voiding Method Bedside Commode Bedside Commode Bedside Commode # Voids 2 1 # Bowel Movements 1 - Exam PHYSICAL EXAMINATION: GENERAL: The patient is alert and oriented x3, not in any acute distress. Well developed, well nourished. HEENT: Pupils are round and equally reacting to light. EOMI. No scleral icterus. No conjunctival pallor. Normocephalic, atraumatic. No pharyngeal erythema. No thyromegaly. CARDIOVASCULAR: S1 and S2 present. No murmurs, rubs, or gallops. PULMONARY: Chest is clear to auscultation, no wheezing or crackles. ABDOMEN: Does have a mild to moderate tenderness in the epigastric area nondistended, normoactive bowel sounds. No palpable organomegaly. MUSCULOSKELETAL: No joint swelling or deformity. EXTREMITIES: No cyanosis, clubbing, or pedal edema. NEUROLOGICAL: Gross neurological examination did not reveal any focal deficits. SKIN: No rashes. - Labs CBC & Chem 7: 09/14/20 06:43 09/15/20 06:46 Labs: Abnormal Lab Results - Last 24 Hours (Table) 09/15/20 09/15/20 Range/Units 06:46 10:24 Potassium 2.5 L* (3.5-5.1) mmol/L BUN 3 L (7-17) mg/dL Creatinine 0.43 L (0.52-1.04) mg/dL Glucose 109 H (74-99) mg/dL Calcium 7.5 L (8.4-10.2) mg/dL Magnesium 1.3 L (1.6-2.3) mg/dL Lipase 3169 H (23-300) U/L Assessment and Plan Plan: -Acute alcoholic pancreatitis: Patient will be on full liquid diet today we'll repeat the lipase tomorrow. -Alcohol abuse: Counseling was provided -alcohol withdrawal patient will be on Ativan CIWA protocol presently doesn't have any withdrawals. -Nicotine use and COPD without any acute exacerbation. -Gastroesophageal reflux disease -Hyperlipidemia -Hypertension -Depression -Hypokalemia secondary to hypomagnesemia replacing -Hypomagnesemia secondary to alcoholism, replaced -DVT prophylaxis: Subcu heparin
[2020-09-15] MEDS: SODIUM CHLORIDE 0.9% 1,000 ML IV SCH (16:44)
[2020-09-15] MEDS: PRAVASTATIN SODIUM 20 MG TAB PO SCH (20:39)
[2020-09-15] MEDS: SERTRALINE 25 MG TAB PO SCH (20:39)
[2020-09-16] MEDS: POTASSIUM BICARBONATE/CIT AC 20 MEQ TABLET.EFF NG-TUBE SCH ×2 (01:03→02:00)
[2020-09-16] MEDS: SODIUM CHLORIDE 0.9% 1,000 ML IV SCH ×3 (01:12→19:32)
[2020-09-16 03:55] LABS: HCT 31.3 % (34.0-46.0); HGB 10.1 gm/dL (11.4-16.0); MCH 34.7 pg (25.0-35.0); MCHC 32.2 g/dL (31.0-37.0); MCV 107.7 fL (80.0-100.0); Macrocytosis Moderate; Platelet Count 169 k/uL (150-450); RBC 2.91 m/uL (3.80-5.40); RDW 14.6 % (11.5-15.5); WBC 5.8 k/uL (3.8-10.6)
[2020-09-16 04:02] LABS: African American GFR (CKD) >90 (>60 ml/min/1.73 sqM); Anion Gap 3 mmol/L; Blood Urea Nitrogen <2 mg/dL (7-17); Calcium 7.9 mg/dL (8.4-10.2); Carbon Dioxide 23 mmol/L (22-30); Chloride 107 mmol/L (98-107); Glucose 112 mg/dL (74-99); Non-African American GFR(CKD) >90 (>60 ml/min/1.73 sqM); Potassium 3.6 mmol/L (3.5-5.1); Sodium 133 mmol/L (137-145)
[2020-09-16 04:12] LABS: Lipase 2500 U/L (23-300)
[2020-09-16] MEDS ORDERED: POTASSIUM BICARBONATE/CIT AC 20 MEQ TABLET.EFF NG-TUBE SCH ×2 (06:00→09:00)
[2020-09-16] MEDS: PANTOPRAZOLE 40 MG/10 ML VIAL IVP SCH ×2 (08:53→20:46)
[2020-09-16] MEDS: METOPROLOL SUCCINATE (ER) 25 MG TAB.ER.24H PO SCH (08:54)
[2020-09-16] MEDS: LORATADINE 10 MG TAB PO SCH (08:54)
[2020-09-16] MEDS ORDERED: LOPERAMIDE 2 MG CAP PO STA (10:26)
--- NOTE | 2020-09-16 10:59 | P.CONS ---
History of Present Illness - Reason for Consult Consult date: 09/16/20 Pancreatitis Requesting physician: Rosa Ware - Chief Complaint Abdominal pain - History of Present Illness 59-year-old female with a medical history significant for coronary artery disease, dyslipidemia, GERD, hypertension, tobacco dependence and alcohol use/abuse who presented to the hospital with abdominal pain. The patient reports developing pain in the epigastric region of her abdomen described as severe and intense in nature. She presented to the hospital for further evaluation. She was found on CT imaging to have a right renal calculi and possible duodenitis. Laboratory evaluation was significant for markedly elevated lipase greater than 4000 and elevated amylase and the patient was treated for acute uncomplicated pancreatitis. Patient was given pain control and IV fluid hydration with improvement in her symptoms. Yesterday patient's pain was somewhat worse and she was found to have an elevated lipase of 3169 and GI was consult for further evaluation. Total bilirubin 1.3, alkaline phosphatase 280, AST 99 and ALT 50 other laboratory evaluation significant for WBC 5.8, hemoglobin 10.1 and platelet count 269,000. Last colonoscopy 12/21/15 with polypectomy at that time. Patient does report frequent alcohol use. No prior episodes of pancreatitis. Currently reporting pain is improved but she is having some loose bowel movements proximally 3-5 daily. Her baseline bowel movements are every 1-3 days. Review of Systems REVIEW OF SYSTEMS: CONSTITUTIONAL: Denies any fevers, chills, weight change or fatigue. CARDIOVASCULAR: Denies any chest pain, palpitations high or low blood pressures RESPIRATORY: Denies any shortness of breath, hemoptysis or cough. GENITOURINARY: No dysuria or hematuria. MUSCULOSKELETAL: No weakness reported. SKIN: Denies any new rashes or lesions, jaundice or pallor. PSYCHIATRIC: Denies any depression or anxiety, alcohol abuse and tobacco dependence. NEUROLOGY: Denies headache, denies any new focal deficits. EARS/NOSE/THROAT: No recent hearing change, congestion, nasal discharge or sore throat. EYES: No pain in eyes, discharge or change in vision. GASTROINTESTINAL: As per HPI. Past Medical History Past Medical History: Asthma, Coronary Artery Disease (CAD), COPD, GERD/Reflux, Hyperlipidemia, Hypertension, Myocardial Infarction (PA), Myocardial Infarction (non Q-wave), Skin Disorder Additional Past Medical History / Comment(s): HX CONCUSSION X3 CHILD. KIDNEY STONE X1. ECZEMA. PA AGE 40; POSS PA 11/24, TOLD NOT BY ANESTHETIST - BUT STENT REPLACED. LMP 2007. HX COLON POLYPS. Last Myocardial Infarction Date:: 12-07-13 History of Any Multi-Drug Resistant Organisms: None Reported Past Surgical History: Adenoidectomy, Appendectomy, Heart Catheterization With Stent, Orthopedic Surgery, Tonsillectomy, Tubal Ligation Additional Past Surgical History / Comment(s): Cardiac Stent 13 YEARS AGO, STENT REPLACED 12-07-13. ORIF LT ANKLE, HAS PLATE/6 SCREWS. Past Anesthesia/Blood Transfusion Reactions: Previous Problems w/ Anesthesia Additional Past Anesthesia/Blood Transfusion Reaction / Comm: HX LOW BLOOD PRESSURE X1 W/ COLONOSCOPY (AFTER PA). Date of Last Stent Placement:: 12/07/13 Past Psychological History: Anxiety, Depression Smoking Status: Current every day smoker Past Alcohol Use History: Daily Past Drug Use History: None Reported - Past Family History Father Family Medical History: No Reported History Additional Family Medical History / Comment(s): UNK Mother Family Medical History: Cancer Additional Family Medical History / Comment(s): AT AGE 62-CANCER Medications and Allergies Home Medications Medication Instructions Recorded Confirmed Type Aspirin 81 mg PO DAILY chew 09/19/19 09/11/20 Rx Loratadine [Claritin] 10 mg PO DAILY 03/07/20 09/11/20 History Metoprolol Succinate [Toprol XL] 25 mg PO DAILY 03/07/20 09/11/20 History Pravastatin Sodium [Pravachol] 10 mg PO HS 03/07/20 09/11/20 History Sertraline [Zoloft] 25 mg PO HS 03/07/20 09/11/20 History Multivitamins, Thera [Multivitamin 1 tab PO DAILY@1200 09/11/20 09/11/20 History (formulary)] Famotidine 20 mg PO BID #0 09/16/20 09/11/20 Rx Thiamine [Vitamin B-1] 100 mg PO DAILY #30 tablet 09/16/20 Rx Allergies Allergy/AdvReac Type Severity Reaction Status Date / Time No Known Allergies Allergy Verified 09/11/20 20:48 Physical Exam Vitals: Vital Signs Temp Pulse Resp BP Pulse Ox 09/16/20 04:53 98 F 100 16 111/73 96 09/15/20 20:51 98.7 F 93 16 115/75 100 09/15/20 19:50 93 16 09/15/20 12:48 97.0 F L 85 18 102/66 98 Intake and Output 09/15/20 09/16/20 09/16/20 22:59 06:59 14:59 Other: Voiding Method Bedside Commode # Voids 5 # Bowel Movements 3 1 On physical examination, patient appears comfortable in no apparent distress. HEAD: Normocephalic, atraumatic. EYES: No scleral icterus. No conjunctival injection. MOUTH: No lesions, tongue midline. NECK: Trachea midline, no gross abnormalities. CHEST: Decreased air entry in all lung delgado. HEART: Regular rate and rhythm. ABDOMEN: Soft, mildly tender to palpation. Bowel sounds are positive. No organomegaly. No guarding or rigidity. EXTREMITIES: No pedal edema. SKIN: No rashes, no jaundice. NEUROLOGIC: Alert and oriented x3. No focal deficits. Results CBC & Chem 7: 09/16/20 03:24 09/16/20 08:00 Labs: Abnormal Lab Results - Last 24 Hours (Table) 09/15/20 09/15/20 09/15/20 Range/Units 10:24 15:48 19:43 RBC (3.80-5.40) m/uL Hgb (11.4-16.0) gm/dL Hct (34.0-46.0) % MCV (80.0-100.0) fL Sodium (137-145) mmol/L Potassium 3.0 L 3.1 L (3.5-5.1) mmol/L BUN (7-17) mg/dL Creatinine (0.52-1.04) mg/dL Glucose (74-99) mg/dL Calcium (8.4-10.2) mg/dL Lipase 3169 H (23-300) U/L 09/15/20 09/16/20 09/16/20 Range/Units 23:21 03:24 03:24 RBC 2.91 L (3.80-5.40) m/uL Hgb 10.1 L (11.4-16.0) gm/dL Hct 31.3 L (34.0-46.0) % MCV 107.7 H (80.0-100.0) fL Sodium 133 L (137-145) mmol/L Potassium 3.2 L (3.5-5.1) mmol/L BUN <2 L (7-17) mg/dL Creatinine 0.38 L (0.52-1.04) mg/dL Glucose 112 H (74-99) mg/dL Calcium 7.9 L (8.4-10.2) mg/dL Lipase 2500 H (23-300) U/L CT scan - abdomen: report reviewed (Nonobstructing right renal calculi and possible duodenitis on computed tomography scan abdomen) Assessment and Plan (1) Acute pancreatitis Narrative/Plan: 60-year-old female presenting with epigastric abdominal pain found to have markedly elevated amylase and lipase for which she is receiving treatment for acute uncomplicated pancreatitis. Computed tomography scan of the abdomen with no and with right renal calculi and some duodenal thickening suggestive of duodenitis seen. Suspicion is for alcoholic related pancreatitis. No gallbladder pathology noted on CT imaging. Patient does report frequent alcohol use. In addition the patient has a history significant for nicotine dependence. Current Visit: Yes Status: Acute Code(s): K85.90 - ACUTE PANCREATITIS WITHOUT NECROSIS OR INFECTION, UNSP SNOMED Code(s): 251462420 (2) Duodenitis Current Visit: Yes Status: Acute Code(s): K29.80 - DUODENITIS WITHOUT BLEEDING SNOMED Code(s): 23024994 (3) Nicotine dependence Current Visit: No Status: Acute Code(s): F17.200 - NICOTINE DEPENDENCE, UNSPECIFIED, UNCOMPLICATED SNOMED Code(s): 61341689 Plan: Supportive care Okay to advance to low fiber, low-fat diet as tolerated Continue monitor CBC, BMP, LFTs Ultrasound of the abdomen ordered ALEN, IgG and triglyceride level ordered Tobacco and alcohol cessation advised, with patient counseled Continue to monitor labs and clinically Thank you for allowing us to participate in the care of the patient
--- NOTE | 2020-09-16 12:01 | P.PN ---
Subjective 60-year-old female came in with the comments of severe epigastric abdominal pain. Patient does drink alcohol on regular basis last drink was yesterday night. Patient's he sees she drinks about a pint of alcohol every day. Patient is found to have peritonitis with elevated lipase and amylase. Patient states she will try to quit alcohol. Patient is being admitted for acute alcoholic pancreatitis and alcohol withdrawal. Patient does have history of COPD can use to smoke. 09/13/2020 Patient abdominal pain improved patient is hungry but Lipase went up to 4000 because of which he patient will remain nothing by mouth. Patient doesn't have any alcohol withdrawals at this time. 09/14/2020 Patient lipase improved patient's symptoms improved patient was started on diet and will advance her diet. Patient did not receive any Ativan today for withdrawals although she did receive yesterday. 09/15/2020 Patient started having abdominal pain again which is in bilateral lower abdominal quadrants but lipase is elevated again. Patient the did have soft diet today after which she started having abdominal pain patient was switched back to full liquid diet and will repeat lipase and patient was started on IV IV fluids again. Gastroenterology will be consulted. 09/16/2020 Patient continues to have abdominal pain. Patient although is fairly tolerating soft diet. Patient lipase is still elevated to 2500. Lipid panel and the OF THE ABDOMEN WERE ORDERED BY GASTROENTEROLOGY PATIENT IS ALSO COMPLAINING OF PLEURITIC CHEST PAIN. Will order a d-dimer. If that's elevated will obtain a CT angios the chest. UTI d-dimer is below 0.8 patient will need a CT of the chest to rule out PE Constitutional: Denied any fatigue denied any fever. Cardio vascular: denied any chest pain, palpitations Gastrointestinal denied any nausea vomiting Pulmonary: Denied any shortness of breath cough Neurologic denied any new focal deficits All inpatient medications were reviewed and appropriate changes in these medications as dictated in the interval history and assessment and plan. Objective - Vital Signs Vital signs: Vital Signs Temp 98 F 09/16/20 04:53 Pulse 100 09/16/20 04:53 Resp 16 09/16/20 04:53 BP 111/73 09/16/20 04:53 Pulse Ox 96 09/16/20 04:53 Intake & Output 09/15/20 09/16/20 09/16/20 18:59 06:59 18:59 Other: Voiding Method Bedside Commode Bedside Commode # Voids 5 # Bowel Movements 3 1 - Exam PHYSICAL EXAMINATION: GENERAL: The patient is alert and oriented x3, not in any acute distress. Well developed, well nourished. HEENT: Pupils are round and equally reacting to light. EOMI. No scleral icterus. No conjunctival pallor. Normocephalic, atraumatic. No pharyngeal erythema. No thyromegaly. CARDIOVASCULAR: S1 and S2 present. No murmurs, rubs, or gallops. PULMONARY: Chest is clear to auscultation, no wheezing or crackles. ABDOMEN: Does have a mild to moderate tenderness in the epigastric area nondistended, normoactive bowel sounds. No palpable organomegaly. MUSCULOSKELETAL: No joint swelling or deformity. EXTREMITIES: No cyanosis, clubbing, or pedal edema. NEUROLOGICAL: Gross neurological examination did not reveal any focal deficits. SKIN: No rashes. - Labs CBC & Chem 7: 09/16/20 03:24 09/16/20 08:00 Labs: Abnormal Lab Results - Last 24 Hours (Table) 09/15/20 09/15/20 09/15/20 Range/Units 15:48 19:43 23:21 RBC (3.80-5.40) m/uL Hgb (11.4-16.0) gm/dL Hct (34.0-46.0) % MCV (80.0-100.0) fL Sodium (137-145) mmol/L Potassium 3.0 L 3.1 L 3.2 L (3.5-5.1) mmol/L BUN (7-17) mg/dL Creatinine (0.52-1.04) mg/dL Glucose (74-99) mg/dL Calcium (8.4-10.2) mg/dL Lipase (23-300) U/L 09/16/20 09/16/20 Range/Units 03:24 03:24 RBC 2.91 L (3.80-5.40) m/uL Hgb 10.1 L (11.4-16.0) gm/dL Hct 31.3 L (34.0-46.0) % MCV 107.7 H (80.0-100.0) fL Sodium 133 L (137-145) mmol/L Potassium (3.5-5.1) mmol/L BUN <2 L (7-17) mg/dL Creatinine 0.38 L (0.52-1.04) mg/dL Glucose 112 H (74-99) mg/dL Calcium 7.9 L (8.4-10.2) mg/dL Lipase 2500 H (23-300) U/L Assessment and Plan Plan: -Acute alcoholic pancreatitis: Patient was operated this time still has some abdominal pain still has elevated lipase and ultrasound of the abdomen is being obtain triglyceride level is being obtained at this time. -Pleuritic chest pain d-dimer if that's positive we'll obtain a CT of the chest rule out pulmonary embolism -Alcohol abuse: Counseling was provided -alcohol withdrawal patient will be on Ativan CIWA protocol presently doesn't have any withdrawals at this time -Nicotine use and COPD without any acute exacerbation. -Gastroesophageal reflux disease -Hyperlipidemia -Hypertension -Depression -Hypokalemia secondary to hypomagnesemia replacing -Hypomagnesemia secondary to alcoholism, replaced -DVT prophylaxis: Subcu heparin
--- NOTE | 2020-09-16 15:57 | CT ---
EXAMINATION TYPE: CT angio chest DATE OF EXAM: 09/16/2020 COMPARISON: 09/17/2019 HISTORY: Elevated d-dimer. CT DLP: 240.7 mGycm Automated exposure control for dose reduction was used. CONTRAST: Performed with IV Contrast, patient injected with 100 mL of Isovue 370. Images obtained from the thoracic inlet to the diaphragm with IV contrast and 3-D post processed imag es. FINDINGS: There are bilateral pleural effusions. The lungs appear clear of consolidation. There is minimal atel ectasis in the right midlung field. There is some fluid in the right major fissure. Heart size is nor mal. There is no pericardial effusion. There is normal contrast opacification of the pulmonary arteries. There are no filling defects. The thoracic aorta is intact. There is no dissection. Ascending aorta measures 3.6 cm. There is no an eurysm. There is coronary artery calcification. There are no hilar masses. There are a few mediastina l lymph nodes measuring up to 1 cm. The thoracic spine is intact. There is no compression fracture. S ternum is intact. IMPRESSION: No evidence of pulmonary embolism. There are new bilateral pleural effusions compared to old exam. At herosclerotic vascular disease unchanged.
--- NOTE | 2020-09-16 18:15 | US ---
EXAMINATION TYPE: US abdomen complete DATE OF EXAM: 09/16/2020 COMPARISON: CT CLINICAL HISTORY: Pancreatitis. ABD pain EXAM MEASUREMENTS: Liver Length: 17.5 cm Gallbladder Wall: 0.2 cm CBD: 0.4 cm Spleen: 9.8 cm Right Kidney: 10.1 x 4.8 x 4.8 cm Left Kidney: 10.8 x 4.7 x 5.3 cm Pancreas: Body wnl, head and tail obscured by overlying bowel gas Liver: Difficult to penetrate, heterogeneous Gallbladder: Possible sludge Evidence for sonographic Gillis's sign: No CBD: wnl Spleen: wnl Right Kidney: No evidence of hydro, probable 6mm renal calculus as visualized on recent CT Left Kidney: wnl Upper IVC: Difficult to visualize Abd Aorta: Obscured by overlying bowel gas IMPRESSION: Nonobstructing right renal calculus. No gallstones. No dilated ducts.
[2020-09-16] MEDS: PRAVASTATIN SODIUM 20 MG TAB PO SCH (20:46)
[2020-09-16] MEDS: SERTRALINE 25 MG TAB PO SCH (20:46)
[2020-09-17] MEDS: LORATADINE 10 MG TAB PO SCH (08:26)
[2020-09-17] MEDS: METOPROLOL SUCCINATE (ER) 25 MG TAB.ER.24H PO SCH (08:26)
[2020-09-17] MEDS: SODIUM CHLORIDE 0.9% 1,000 ML IV SCH ×2 (08:27→14:50)
[2020-09-17] MEDS: PANTOPRAZOLE 40 MG/10 ML VIAL IVP SCH ×2 (08:27→22:08)
[2020-09-17 12:35] LABS: IgG Subclass 3 48.6 mg/dL (11.0-85.0); IgG Subclass 4 11.8 mg/dL (3.0-175.0)
--- NOTE | 2020-09-17 13:19 | P.PN ---
Subjective Progress Note Date: 09/17/20 Principal diagnosis: Abdominal pain The patient was seen and examined sitting up in her bed. She states her abdominal pain has improved significantly. Denies any nausea or vomiting. She is tolerating her diet but has little appetite. She's had 3 bowel movements. Yesterday she underwent an ultrasound of the abdomen which shows no CBD dilation, liver difficult to penetrate, heterogeneous, gallbladder with possible sludge, nonobstructing right renal calculus, no gallstones, no dilated ducts. ALEN pending, IgG4 normal, triglycerides 98 Objective - Vital Signs Vital signs: Vital Signs Temp 98.7 F 09/17/20 05:00 Pulse 96 09/17/20 05:00 Resp 18 09/17/20 05:00 BP 143/90 09/17/20 05:00 Pulse Ox 95 09/17/20 05:00 Intake & Output 09/16/20 09/17/20 09/17/20 18:59 06:59 18:59 Intake Total 1600 Balance 1600 Intake: Intake, IV Titration 1200 Amount Sodium Chloride 0.9% 1, 1200 000 ml @ 100 mls/hr IV . Q10H [facility] Rx#:[id number] Oral 400 Other: Voiding Method Toilet Toilet Bedside Commode Bedside Commode # Voids 2 4 # Bowel Movements 2 2 - Exam General appearance: The patient is alert, oriented, appears in no acute distress. HET: Head is normocephalic and atraumatic. Conjunctiva pink. Sclera anicteric. Neck: Supple without lymphadenopathy. Abdomen: Soft, right and left upper quadrant tenderness, nondistended with bowel sounds. No guarding or rigidity. Extremities: Normal skin color and turgor. No pedal edema Skin: No rashes, no jaundice Neurological: No focal deficits. Alert and oriented 3. - Labs CBC & Chem 7: 09/16/20 03:24 09/16/20 08:00 Labs: Abnormal Lab Results - Last 24 Hours (Table) 09/16/20 Range/Units 11:30 D-Dimer 2.89 H (<0.60) mg/L FEU Assessment and Plan (1) Acute pancreatitis Narrative/Plan: 60-year-old female presenting with epigastric abdominal pain found to have markedly elevated amylase and lipase for which she is receiving treatment for acute uncomplicated pancreatitis. Computed tomography scan of the abdomen with no and with right renal calculi and some duodenal thickening suggestive of duodenitis seen. Suspicion is for alcoholic related pancreatitis. No gallbladder pathology noted on CT imaging. Patient does report frequent alcohol use. In addition the patient has a history significant for nicotine dependence. Current Visit: Yes Status: Acute Code(s): K85.90 - ACUTE PANCREATITIS WITHOUT NECROSIS OR INFECTION, UNSP SNOMED Code(s): 438707233 (2) Duodenitis Current Visit: Yes Status: Acute Code(s): K29.80 - DUODENITIS WITHOUT BLE EDING SNOMED Code(s): 21915485 (3) Nicotine dependence Current Visit: No Status: Acute Code(s): F17.200 - NICOTINE DEPENDENCE, UNSPECIFIED, UNCOMPLICATED SNOMED Code(s): 32434110 Plan: Supportive care Okay to advance to low fiber, low-fat diet as tolerated Continue monitor CBC, BMP, LFTs Ultrasound of the abdomen ordered ALEN, IgG and triglyceride level ordered and reviewed Tobacco and alcohol cessation advised, with patient counseled Continue to monitor labs and clinically Thank you for allowing us to participate in the care of the patient Dr. Marks I agree with the dictator's note, documented as a scribe by Elizabeth Hong.
[2020-09-17 14:52] LABS: African American GFR (CKD) 132.1 (60.0-200.0); Blood Urea Nitrogen <5.0 mg/dL (9.0-27.0); Calcium 8.1 mg/dL (8.7-10.3); Chloride 110 mmol/L (96-109); Glucose 101 mg/dL (70-110); Potassium 3.3 mmol/L (3.5-5.5); Sodium 140 mmol/L (135-145)
[2020-09-17] MEDS ORDERED: POTASSIUM CHLORIDE ER 20 MEQ TAB.ER PO STA (15:51)
--- NOTE | 2020-09-17 16:05 | P.PN ---
Subjective Progress Note Date: 09/17/20 60-year-old female came in with the complaints of severe epigastric abdominal pain. Patient does drink alcohol on regular basis last drink was yesterday night. Patient's he sees she drinks about a pint of alcohol every day. Patient is found to have pancreatitis with elevated lipase and amylase. Patient states she will try to quit alcohol. Patient is being admitted for acute alcoholic pancreatitis and alcohol withdrawal. Patient does have history of COPD and continues to smoke. 09/13/2020 Patient abdominal pain improved patient is hungry but Lipase went up to 4000 because of which he patient will remain nothing by mouth. Patient doesn't have any alcohol withdrawals at this time. 09/14/2020 Patient lipase improved patient's symptoms improved patient was started on diet and will advance her diet. Patient did not receive any Ativan today for withdrawals although she did receive yesterday. 09/15/2020 Patient started having abdominal pain again which is in bilateral lower abdominal quadrants but lipase is elevated again. Patient the did have soft diet today after which she started having abdominal pain patient was switched back to full liquid diet and will repeat lipase and patient was started on IV IV fluids again. Gastroenterology will be consulted. 09/16/2020 Patient continues to have abdominal pain. Patient although is fairly tolerating soft diet. Patient lipase is still elevated to 2500. Lipid panel and the OF THE ABDOMEN WERE ORDERED BY GASTROENTEROLOGY PATIENT IS ALSO COMPLAINING OF PLEURITIC CHEST PAIN. Will order a d-dimer. If that's elevated will obtain a CT angios the chest. UTI d-dimer is below 0.8 patient will need a CT of the chest to rule out PE 09/17/2020 Patient is seen and evaluated and follow-up tolerating diet with no reports of nausea or vomiting noted. Patient is passing gas and having bowel movements and GI is following. Patient continues to have some mild abdominal discomfort although states is much improved. Repeat lipase pending at this time. Potassium was found to be slightly low and will replace and repeat a.m. labs. Patient did have an elevated d-dimer of 2.[address] of the chest was done showing no evidence of pulmonary embolism. Patient denies any shortness of breath or chest pain at this time. Patient is tolerating diet although states she does not have much of an appetite. Patient is asking when she is able to go home. Will repeat a.m. labs along with lipase and monitor closely Constitutional: Denied any fatigue denied any fever. Cardio vascular: denied any chest pain, palpitations Gastrointestinal denied any nausea vomiting Pulmonary: Denied any shortness of breath cough Neurologic denied any new focal deficits Objective - Vital Signs Vital signs: Vital Signs Temp 98.4 F 09/17/20 11:36 Pulse 85 09/17/20 11:36 Resp 20 09/17/20 11:36 BP 126/83 09/17/20 11:36 Pulse Ox 93 L 09/17/20 11:36 Intake & Output 09/16/20 09/17/20 09/17/20 18:59 06:59 18:59 Intake Total 1600 Balance 1600 Intake: Intake, IV Titration 1200 Amount Sodium Chloride 0.9% 1, 1200 000 ml @ 100 mls/hr IV . Q10H [facility] Rx#:[id number] Oral 400 Other: Voiding Method Toilet Toilet Bedside Commode Bedside Commode # Voids 2 4 # Bowel Movements 2 2 - Exam Gen: This is a 89-year-old female sitting up in bed awake, alert and oriented 3, well-developed, well-nourished. Temp Is 98.4F, pulse is 85, respirations are 20, blood pressure is 126/83, oxygen saturation is 93% on room air. HEENT: Head is atraumatic, normocephalic. Pupils equal, round. Sclerae is anicteric. NECK: Supple. No JVD. No lymphadenopathy. No thyromegaly. LUNGS: Diminished breath sounds bilaterally with no wheezing or rhonchi noted HEART: S1, S2 are muffled ABDOMEN: Soft. Bowel sounds are present. No masses. No tenderness. EXTREMITIES: No pedal edema. No calf tenderness. NEUROLOGICAL: Patient is awake, alert and oriented x3. Cranial nerves 2 through 12 are grossly intact. - Labs CBC & Chem 7: 09/16/20 03:24 09/17/20 06:28 Labs: Abnormal Lab Results - Last 24 Hours (Table) 09/16/20 Range/Units 11:30 D-Dimer 2.89 H (<0.60) mg/L FEU Assessment and Plan Assessment: -Acute alcoholic pancreatitis -Pleuritic chest pain -Elevated d-dimer with no evidence of pulmonary embolism on CT -Alcohol abuse: Counseling was provided -alcohol withdrawal patient will be on Ativan CIWA protocol presently doesn't have any withdrawals at this time -Continued ongoing Nicotine use -COPD without any acute exacerbation. -Gastroesophageal reflux disease -Hyperlipidemia -Hypertension -Depression -Hypokalemia secondary to hypomagnesemia -Hypomagnesemia secondary to alcoholism, improved -DVT prophylaxis: Subcu heparin Recommendations and discussion: Recommend repeat labs and monitoring amylase along with electrolytes closely. GI is following with no plans for any endoscopic interventions and currently awaiting pending labs. Patient is tolerating diet and will advance slowly as tolerated to a low fiber. Patient is asking when she is going home and has spoke with case management and is agreeable to home care upon discharge. Due to multiple complex medical issues, prognosis is guarded. Further recommendations to follow. Possible discharge in 24 hours.
[2020-09-17 18:32] LABS: Lipase 351 U/L (14-63)
[2020-09-17] MEDS: POTASSIUM CHLORIDE ER 20 MEQ TAB.ER PO SCH ×2 (22:02→22:36)
[2020-09-17] MEDS: PRAVASTATIN SODIUM 20 MG TAB PO SCH (22:02)
[2020-09-17] MEDS: SERTRALINE 25 MG TAB PO SCH (22:02)
[2020-09-18] MEDS: SODIUM CHLORIDE 0.9% 1,000 ML IV SCH (03:57)
[2020-09-18] MEDS: POTASSIUM BICARBONATE/CIT AC 20 MEQ TABLET.EFF NG-TUBE SCH ×2 (04:58→05:39)
[2020-09-18 05:25] LABS: African American GFR (CKD) >90 (>60 ml/min/1.73 sqM); Anion Gap 5 mmol/L; Blood Urea Nitrogen 2 mg/dL (7-17); Calcium 8.3 mg/dL (8.4-10.2); Carbon Dioxide 20 mmol/L (22-30); Chloride 114 mmol/L (98-107); Glucose 108 mg/dL (74-99); Lipase 1640 U/L (23-300); Non-African American GFR(CKD) >90 (>60 ml/min/1.73 sqM); Potassium 3.6 mmol/L (3.5-5.1); Sodium 139 mmol/L (137-145)
[2020-09-18] MEDS: LORATADINE 10 MG TAB PO SCH (07:54)
[2020-09-18] MEDS: PANTOPRAZOLE 40 MG/10 ML VIAL IVP SCH ×2 (07:55→19:45)
[2020-09-18] MEDS: METOPROLOL SUCCINATE (ER) 25 MG TAB.ER.24H PO SCH (07:55)
[2020-09-18] MEDS ORDERED: IPRATROPIUM-ALBUTEROL 3 ML NEB INHALATION PRN (10:17)
--- NOTE | 2020-09-18 10:49 | XR ---
EXAMINATION TYPE: XR chest 1V portable DATE OF EXAM: 09/18/2020 COMPARISON: 09/14/2020 INDICATION: Short of breath, pancreatitis TECHNIQUE: Single frontal view of the chest is obtained. FINDINGS: The heart size is enlarged. The pulmonary vasculature is prominent. Diffuse increased lung markings are present. Correlate for congestive heart failure. IMPRESSION: 1. Diffuse increased lung markings with prominent pulmonary vascular markings and cardiomegaly. Corre late for congestive heart failure. Findings are worsening from comparison. Follow-up is recommended.
[2020-09-18 11:09] LABS: African American GFR (CKD) >90 (>60 ml/min/1.73 sqM); Anion Gap 4 mmol/L; Blood Urea Nitrogen <2 mg/dL (7-17); Calcium 8.7 mg/dL (8.4-10.2); Carbon Dioxide 22 mmol/L (22-30); Chloride 114 mmol/L (98-107); Glucose 107 mg/dL (74-99); Non-African American GFR(CKD) >90 (>60 ml/min/1.73 sqM); Potassium 3.9 mmol/L (3.5-5.1); Sodium 140 mmol/L (137-145)
[2020-09-18] MEDS: IPRATROPIUM-ALBUTEROL 3 ML NEB INHALATION SCH ×3 (11:38→20:45)
--- NOTE | 2020-09-18 12:42 | P.PN ---
Subjective Progress Note Date: 09/18/20 Principal diagnosis: Abdominal pain A shunt is seen and examined lying in bed. States she still has some abdominal tenderness. No bowel movement today but did have reported yesterday. Denies any nausea or vomiting. States she does have more abdominal pain after eating. Objective - Vital Signs Vital signs: Vital Signs Temp 98.0 F 09/18/20 04:04 Pulse 100 09/18/20 04:04 Resp 20 09/18/20 04:04 BP 146/82 09/18/20 04:04 Pulse Ox 94 L 09/18/20 04:04 Intake & Output 09/17/20 09/18/20 09/18/20 18:59 06:59 18:59 Intake Total 1200 1200 Balance 1200 1200 Weight 60.917 kg Intake: Intake, IV Titration 1200 600 Amount Sodium Chloride 0.9% 1, 1200 600 000 ml @ 50 mls/hr IV . Q20H [facility] Rx#:[id number] Oral 600 Other: Voiding Method Toilet Toilet Bedside Commode Bedside Commode # Voids 2 4 # Bowel Movements 2 - Exam General appearance: The patient is alert, oriented, appears in no acute distress. HET: Head is normocephalic and atraumatic. Conjunctiva pink. Sclera anicteric. Neck: Supple without lymphadenopathy. Abdomen: Soft, right and left upper quadrant tenderness, nondistended with bowel sounds. No guarding or rigidity. Extremities: Normal skin color and turgor. No pedal edema Skin: No rashes, no jaundice Neurological: No focal deficits. Alert and oriented 3. - Labs CBC & Chem 7: 09/16/20 03:24 09/18/20 10:24 Labs: Abnormal Lab Results - Last 24 Hours (Table) 09/16/20 09/17/20 09/17/20 Range/Units 08:00 06:28 19:37 Potassium 3.3 L 3.3 L (3.5-5.5) mmol/L Chloride 110 H (96-109) mmol/L Carbon Dioxide 21.0 L (21.6-31.8) mmol/L BUN <5.0 L (9.0-27.0) mg/dL Creatinine 0.4 L (0.6-1.5) mg/dL Glucose (74-99) mg/dL Calcium 8.1 L (8.7-10.3) mg/dL Lipase 351 H (14-63) U/L ALEN Screen POSITIVE A (NEGATIVE) 09/18/20 Range/Units 04:45 Potassium (3.5-5.5) mmol/L Chloride 114 H (96-109) mmol/L Carbon Dioxide 20 L (21.6-31.8) mmol/L BUN 2 L (9.0-27.0) mg/dL Creatinine 0.43 L (0.6-1.5) mg/dL Glucose 108 H (74-99) mg/dL Calcium 8.3 L (8.7-10.3) mg/dL Lipase 1640 H (14-63) U/L ALEN Screen (NEGATIVE) Assessment and Plan (1) Acute pancreatitis Narrative/Plan: 60-year-old female presenting with epigastric abdominal pain found to have markedly elevated amylase and lipase for which she is receiving treatment for acute uncomplicated pancreatitis. Computed tomography scan of the abdomen with no and with right renal calculi and some duodenal thickening suggestive of duodenitis seen. Suspicion is for alcoholic related pancreatitis. No gallbladder pathology noted on CT imaging. Patient does report frequent alcohol use. In addition the patient has a history significant for nicotine dependence. Current Visit: Yes Status: Acute Code(s): K85.90 - ACUTE PANCREATITIS WITHOUT NECROSIS OR INFECTION, UNSP SNOMED Code(s): 996917352 (2) Duodenitis Current Visit: Yes Status: Acute Code(s): K29.80 - DUODENITIS WITHOUT BLEEDING SNOMED Code(s): 91047871 (3) Nicotine dependence Current Visit: No Status: Acute Code(s): F17.200 - NICOTINE DEPENDENCE, UNSPECIFIED, UNCOMPLICATED SNOMED Code(s): 11644151 Plan: Supportive care Okay to advance to low fiber, low-fat diet as tolerated Continue monitor CBC, BMP, LFTs Ultrasound of the abdomen ordered ALEN, IgG and triglyceride level ordered and reviewed Tobacco and alcohol cessation advised, with patient counseled Continue to monitor labs and clinically Thank you for this consultation, patient is cleared for discharge from a gastroenterology standpoint can follow-up as an outpatient Dr. Marks I agree with the dictator's note, documented as a scribe by Elizabeth Hong.
[2020-09-18] MEDS ORDERED: FUROSEMIDE 10 MG/ML 4 ML VIAL IV STA (13:22)
--- NOTE | 2020-09-18 15:08 | P.PN ---
Subjective Progress Note Date: 09/18/20 60-year-old female came in with the complaints of severe epigastric abdominal pain. Patient does drink alcohol on regular basis last drink was yesterday night. Patient's he sees she drinks about a pint of alcohol every day. Patient is found to have pancreatitis with elevated lipase and amylase. Patient states she will try to quit alcohol. Patient is being admitted for acute alcoholic pancreatitis and alcohol withdrawal. Patient does have history of COPD and continues to smoke. 09/13/2020 Patient abdominal pain improved patient is hungry but Lipase went up to 4000 because of which he patient will remain nothing by mouth. Patient doesn't have any alcohol withdrawals at this time. 09/14/2020 Patient lipase improved patient's symptoms improved patient was started on diet and will advance her diet. Patient did not receive any Ativan today for withdrawals although she did receive yesterday. 09/15/2020 Patient started having abdominal pain again which is in bilateral lower abdominal quadrants but lipase is elevated again. Patient the did have soft diet today after which she started having abdominal pain patient was switched back to full liquid diet and will repeat lipase and patient was started on IV IV fluids again. Gastroenterology will be consulted. 09/16/2020 Patient continues to have abdominal pain. Patient although is fairly tolerating soft diet. Patient lipase is still elevated to 2500. Lipid panel and the OF THE ABDOMEN WERE ORDERED BY GASTROENTEROLOGY PATIENT IS ALSO COMPLAINING OF PLEURITIC CHEST PAIN. Will order a d-dimer. If that's elevated will obtain a CT angios the chest. UTI d-dimer is below 0.8 patient will need a CT of the chest to rule out PE 09/17/2020 Patient is seen and evaluated and follow-up tolerating diet with no reports of nausea or vomiting noted. Patient is passing gas and having bowel movements and GI is following. Patient continues to have some mild abdominal discomfort although states is much improved. Repeat lipase pending at this time. Potassium was found to be slightly low and will replace and repeat a.m. labs. Patient did have an elevated d-dimer of 2.[address] of the chest was done showing no evidence of pulmonary embolism. Patient denies any shortness of breath or chest pain at this time. Patient is tolerating diet although states she does not have much of an appetite. Patient is asking when she is able to go home. Will repeat a.m. labs along with lipase and monitor closely 09/18/2020 Patient is seen this morning stating she continues to have abdominal discomfort in the lower left and right quadrant. Patient is passing gas and having bowel movements. Lipase was repeated and is currently 1640. BMP was also repeated and potassium is improved at 3.9. Patient was having some chest tightness with deep inspiration and underwent chest x-ray which shows diffuse increased lung markings with prominent pulmonary vascular markings and cardiomegaly correlate for possible CHF and worsening from previous. We'll discontinue IV fluids and given a dose of Lasix 40 mg once and monitor closely. Patient does have a history of COPD and uses emergency inhaler in the outpatient setting and will start breathing inhalational treatments and monitor closely. Patient is tolerating diet although eating very little as she does not have much of an appetite. GI is following. Will continue to monitor closely. Constitutional: Denied any fatigue denied any fever. Cardio vascular: Reports chest tightness with inspiration Gastrointestinal denied any nausea vomiting, reports continued abdominal discomfort although slightly improved. Pulmonary: Reports occasional shortness of breath Neurologic denied any new focal deficits Objective - Vital Signs Vital signs: Vital Signs Temp 98.0 F 09/18/20 04:04 Pulse 100 09/18/20 04:04 Resp 20 09/18/20 04:04 BP 146/82 09/18/20 04:04 Pulse Ox 94 L 09/18/20 04:04 Intake & Output 09/17/20 09/18/20 09/18/20 18:59 06:59 18:59 Intake Total 1200 1200 Balance 1200 1200 Weight 60.917 kg Intake: Intake, IV Titration 1200 600 Amount Sodium Chloride 0.9% 1, 1200 600 000 ml @ 50 mls/hr IV . Q20H [facility] Rx#:[id number] Oral 600 Other: Voiding Method Toilet Toilet Bedside Commode Bedside Commode # Voids 2 4 # Bowel Movements 2 - Exam Gen: This is a 60-year-old female sitting up in bed awake, alert and oriented 3, well-developed, well-nourished. Temp Is 97.6F, pulse is 92, respirations are 14, blood pressure is 130/87, oxygen saturation is 97% on room air. HEENT: Head is atraumatic, normocephalic. Pupils equal, round. Sclerae is anicteric. NECK: Supple. No JVD. No lymphadenopathy. No thyromegaly. LUNGS: Diminished breath sounds bilaterally with some mild scattered rhonchi noted HEART: S1, S2 are muffled ABDOMEN: Soft. Bowel sounds are present. No masses. Mildly tender of the left and right lower quadrant EXTREMITIES: No pedal edema. No calf tenderness. NEUROLOGICAL: Patient is awake, alert and oriented x3. Cranial nerves 2 through 12 are grossly intact. - Labs CBC & Chem 7: 09/16/20 03:24 09/18/20 10:24 Labs: Abnormal Lab Results - Last 24 Hours (Table) 09/16/20 09/17/20 09/17/20 Range/Units 08:00 06:28 19:37 Potassium 3.3 L 3.3 L (3.5-5.5) mmol/L Chloride 110 H (96-109) mmol/L Carbon Dioxide 21.0 L (21.6-31.8) mmol/L BUN <5.0 L (9.0-27.0) mg/dL Creatinine 0.4 L (0.6-1.5) mg/dL Glucose (74-99) mg/dL Calcium 8.1 L (8.7-10.3) mg/dL Lipase 351 H (14-63) U/L ALEN Screen POSITIVE A (NEGATIVE) 09/18/20 Range/Units 04:45 Potassium (3.5-5.5) mmol/L Chloride 114 H (96-109) mmol/L Carbon Dioxide 20 L (21.6-31.8) mmol/L BUN 2 L (9.0-27.0) mg/dL Creatinine 0.43 L (0.6-1.5) mg/dL Glucose 108 H (74-99) mg/dL Calcium 8.3 L (8.7-10.3) mg/dL Lipase 1640 H (14-63) U/L ALEN Screen (NEGATIVE) Assessment and Plan Assessment: -Acute alcoholic pancreatitis -Pleuritic chest pain -Elevated d-dimer with no evidence of pulmonary embolism on CT -Alcohol abuse: Counseling was provided -alcohol withdrawal patient will be on Ativan CIWA protocol presently doesn't have any withdrawals at this time -Continued ongoing Nicotine use -COPD with acute exacerbation -Gastroesophageal reflux disease -Hyperlipidemia -Hypertension -Depression -Hypokalemia secondary to hypomagnesemia -Hypomagnesemia secondary to alcoholism, improved -DVT prophylaxis: Subcu heparin Recommendations and discussion: Recommend continuing current medications, management, and symptomatic treatment. Will give 1 dose of IV Lasix as patient was having some chest tightness on inspiration and does have history of COPD and will start breathing inhalational treatments. GI is following with no plans for any endoscopic interventions and recommend outpatient follow-up. Patient is tolerating diet and will advance slowly as tolerated to a low fiber. Will discontinue IV fluids and monitor closely. Patient states she is nervous about going home she lives at home alone and continues with abdominal discomfort along with mild shortness of breath. Will monitor closely. Due to multiple complex medical issues, prognosis is guarded. Further recommendations to follow. Possible discharge in 24 hours.
[2020-09-18] MEDS: PRAVASTATIN SODIUM 20 MG TAB PO SCH (19:44)
[2020-09-18] MEDS: SERTRALINE 25 MG TAB PO SCH (19:44)
[2020-09-19] MEDS: IPRATROPIUM-ALBUTEROL 3 ML NEB INHALATION SCH ×3 (07:59→15:07)
[2020-09-19] MEDS: METOPROLOL SUCCINATE (ER) 25 MG TAB.ER.24H PO SCH (08:02)
[2020-09-19] MEDS: LORATADINE 10 MG TAB PO SCH (08:02)
[2020-09-19] MEDS: PANTOPRAZOLE 40 MG/10 ML VIAL IVP SCH (08:03)
[2020-09-19 12:04] VITALS: BP 127/78; PULSE 81; RESP 17; TEMP 98.2
--- NOTE | 2020-09-19 15:13 | P.DS ---
Providers Date of admission: 09/11/20 23:24 Expected date of discharge: 09/19/20 Attending physician: Tirso Bray Consults: 09/15/20 16:01 Consult Physician Routine Consulting Provider: Americo Marks Consult Reason/Comments: Alcoholic pancreatitis Do you want consulting provider notified?: Yes [facility] Course: Final diagnosis -Acute alcoholic pancreatitis -Pleuritic chest pain -Elevated d-dimer with no evidence of pulmonary embolism on CT -Alcohol abuse: Counseling was provided -alcohol withdrawal -Continued ongoing Nicotine use -COPD with acute exacerbation -Gastroesophageal reflux disease -Hyperlipidemia -Hypertension -Depression -Hypokalemia secondary to hypomagnesemia -Hypomagnesemia secondary to alcoholism, improved -DVT prophylaxis Discharge disposition Patient is being discharged in a stable condition with guarded prognosis to home. Patient will follow-up with Dr. Aj in the outpatient setting upon dis charge. Patient is to follow-up with GI as discussed and scheduled. Patient will continue on oral antibiotic in the form of Ceftin 500 mg twice daily for the next 4 days. Prescriptions provided and recommend repeat labs in 1-2 days to monitor CBC and BMP along with magnesium level. Total time taken is greater than 35 minutes. Hospital course This is a pleasant 60 years old female who was recently admitted with severe epigastric abdominal pain and was found to have acute alcoholic pancreatitis and some mild alcohol withdrawal. GI Following closely. Patient also had an acute urinary tract infection with cultures finalizing showing E. coli and patient was maintained on IV ceftriaxone and will continue with oral Ceftin twice daily for the next 4 days to complete the course. Patient will follow-up with GI in the outpatient setting as scheduled and also discussed with the patient at length about following up with pulmonary for further testing and is agreeable. Patient will continue with breathing inhalational treatments and prescriptions were provided. Discussed with the patient at length about continuing to avoid alcohol and tobacco use. Patient has made comments of discontinuing alcohol but not willing to quit smoking at this time. Patient states she has some abdominal soreness with palpation although feels is much improved and is tolerating diet with no reports of nausea or vomiting noted. Patient is asking when she is able to go home. Currently no reports of chest pain, shortness of breath, or palpitations. Patient is afebrile. No reports of nausea or vomiting and patient is tolerating diet. Patient will be discharged home today. On exam vital signs are stable. Cardio S1, S2 are muffled. Respiratory system shows diminished breath sounds at the bases with no wheezing or rhonchi noted. Abdomen is soft and nontender. Nervous system shows no focal deficits. Please refer to medication reconciliation sheet for a list of medications. Patient Condition at Discharge: Stable Plan - Discharge Summary Discharge Rx Participant: No New Discharge Prescriptions: New Thiamine [Vitamin B-1] 100 mg PO DAILY #30 tablet Ipratropium-Albuterol Nebulize [Duoneb 0.5 mg-3 mg/3 ml Soln] 3 ml INHALATION RT-QID 30 Days #120 ml Cefuroxime Axetil [Ceftin] 500 mg PO BID 4 Days #8 tab Ipratropium-Albuterol Nebulize [Duoneb 0.5 mg-3 mg/3 ml Soln] 3 ml INHALATION RT-QID PRN ml PRN Reason: Shortness Of Breath Or Wheezing Acetaminophen Tab [Tylenol] 650 mg PO Q6HR PRN #0 tab PRN Reason: Mild Pain Or Fever > 100.5 Continue Aspirin 81 mg PO DAILY chew Sertraline [Zoloft] 25 mg PO HS Pravastatin Sodium [Pravachol] 10 mg PO HS Metoprolol Succinate [Toprol XL] 25 mg PO DAILY Loratadine [Claritin] 10 mg PO DAILY Multivitamins, Thera [Multivitamin (formulary)] 1 tab PO DAILY@1200 Changed Famotidine 20 mg PO BID #0 Discontinued Losartan Potassium 100 mg PO DAILY Discharge Medication List Aspirin 81 mg PO DAILY chew 09/19/19 [Rx] Loratadine [Claritin] 10 mg PO DAILY 03/07/20 [History] Metoprolol Succinate [Toprol XL] 25 mg PO DAILY 03/07/20 [History] Pravastatin Sodium [Pravachol] 10 mg PO HS 03/07/20 [History] Sertraline [Zoloft] 25 mg PO HS 03/07/20 [History] Multivitamins, Thera [Multivitamin (formulary)] 1 tab PO DAILY@1200 09/11/20 [History] Famotidine 20 mg PO BID #0 09/16/20 [Rx] Thiamine [Vitamin B-1] 100 mg PO DAILY #30 tablet 09/16/20 [Rx] Acetaminophen Tab [Tylenol] 650 mg PO Q6HR PRN #0 tab 09/19/20 [Rx] Cefuroxime Axetil [Ceftin] 500 mg PO BID 4 Days #8 tab 09/19/20 [Rx] Ipratropium-Albuterol Nebulize [Duoneb 0.5 mg-3 mg/3 ml Soln] 3 ml INHALATION RT-QID 30 Days #120 ml 09/19/20 [Rx] Ipratropium-Albuterol Nebulize [Duoneb 0.5 mg-3 mg/3 ml Soln] 3 ml INHALATION RT-QID PRN ml 09/19/20 [Rx] Follow up Appointment(s)/Referral(s): Cally Aj MD [Primary Care Provider] - 09/24/20 9:50 am [facility], [NON-STAFF] - As Needed Christa Carpenter NPC [Nurse Practitioner] - 10/02/20 11:30 am Ambulatory/Diagnostic Orders: Complete Blood Count w/diff [LAB.AMB] Time Frame: 2 Days, Location: None Selected Activity/Diet/Wound Care/Special Instructions: Activity Limited until follow-up Follow-up with primary care provider upon discharge Follow-up with GI outpatient Avoid alcohol intake Continue with antibiotics until finished Follow-up with pulmonary outpatient Continue low fiber diet Discharge Disposition: HOME SELF-CARE
[2020-09-26 11:12] LABS: ANA Pattern Homogeneous
== END 2020-09-19 17:00 | disposition home or self-care (01) | DRG 439 ==
LOC: EC 20:35 → 5NMEDONC 23:24
PROVIDERS: ADMIT Hospitalist; ATTEND Hospitalist
DX: K85.20 Alcohol induced acute pancreatitis without necrosis or infection (principal); F10.239 Alcohol dependence with withdrawal, unspecified; E87.1 Hypo-osmolality and hyponatremia; J44.1 Chronic obstructive pulmonary disease with (acute) exacerbation; N39.0 Urinary tract infection, site not specified; E87.6 Hypokalemia; Z20.822 Contact with and (suspected) exposure to COVID-19; B96.20 Unspecified Escherichia coli [E. coli] as the cause of diseases classified elsewhere; N20.0 Calculus of kidney; I25.10 Atherosclerotic heart disease of native coronary artery without angina pectoris; K21.9 Gastro-esophageal reflux disease without esophagitis; I11.9 Hypertensive heart disease without heart failure; E78.5 Hyperlipidemia, unspecified; E83.42 Hypomagnesemia; K29.80 Duodenitis without bleeding; L30.9 Dermatitis, unspecified; F32.9 Major depressive disorder, single episode, unspecified; F41.9 Anxiety disorder, unspecified; I25.2 Old myocardial infarction; M25.551 Pain in right hip; F17.210 Nicotine dependence, cigarettes, uncomplicated; Z71.6 Tobacco abuse counseling; Z79.82 Long term (current) use of aspirin; Z79.899 Other long term (current) drug therapy; Z71.41 Alcohol abuse counseling and surveillance of alcoholic; Z87.820 Personal history of traumatic brain injury; Z87.19 Personal history of other diseases of the digestive system; Z90.49 Acquired absence of other specified parts of digestive tract; Z87.81 Personal history of (healed) traumatic fracture; Z87.442 Personal history of urinary calculi; Z95.5 Presence of coronary angioplasty implant and graft; Z90.89 Acquired absence of other organs; Z98.51 Tubal ligation status; Z98.890 Other specified postprocedural states; Z80.9 Family history of malignant neoplasm, unspecified
CPT/HCPCS: 36415; 71045; 71275; 73502; 74018; 74176; 76700; 80048; 80053; 81001; 82150; 82787; 83605; 83690; 83735; 84132; 84478; 84484; 85025; 85027; 85379; 85610; 85730; 86038; 86039; 87077; 87086; 87186; 87635; 93005; 94640; 94760; 96360; 99285

== ENCOUNTER 2022-02-05 14:16 | Emergency (ER) | payer OTHER ==
[2022-02-05 15:00] VITALS: BP 126/84; PULSE 101; RESP 20; TEMP 98.4
--- NOTE | 2022-02-05 15:33 | ED ---
General Adult HPI - General Chief complaint: Upper Respiratory Infection Stated complaint: covid+ Time Seen by Provider: 02/05/22 15:03 Source: patient, RN notes reviewed, old records reviewed Mode of arrival: ambulatory Limitations: no limitations - History of Present Illness Initial comments: 61-year-old female presenting for evaluation of headache, cough cold symptoms, tested positive for coronavirus at home. Her symptoms have been present for a full 4 days. She has a productive cough, no dyspnea. No vomiting. She has daily headache and nasal congestion over the past 4 days. - Related Data Home Medications Medication Instructions Recorded Confirmed Loratadine [Claritin] 10 mg PO DAILY 03/07/20 09/11/20 Metoprolol Succinate [Toprol XL] 25 mg PO DAILY 03/07/20 09/11/20 Pravastatin Sodium [Pravachol] 10 mg PO HS 03/07/20 09/11/20 Sertraline [Zoloft] 25 mg PO HS 03/07/20 09/11/20 Multivitamins, Thera [Multivitamin 1 tab PO DAILY@1200 09/11/20 09/11/20 (formulary)] Previous Rx's Medication Instructions Recorded Aspirin 81 mg PO DAILY chew 09/19/19 Famotidine 20 mg PO BID #0 09/16/20 Thiamine [Vitamin B-1] 100 mg PO DAILY #30 tablet 09/16/20 Acetaminophen Tab [Tylenol] 650 mg PO Q6HR PRN #0 tab 09/19/20 Ipratropium-Albuterol Nebulize 3 ml INHALATION RT-QID 30 Days 09/19/20 [Duoneb 0.5 mg-3 mg/3 ml Soln] #120 ml Ipratropium-Albuterol Nebulize 3 ml INHALATION RT-QID PRN ml 09/19/20 [Duoneb 0.5 mg-3 mg/3 ml Soln] cefUROXime axetiL [Ceftin] 500 mg PO BID 4 Days #8 tab 09/19/20 Allergies Allergy/AdvReac Type Severity Reaction Status Date / Time No Known Allergies Allergy Verified 02/05/22 15:00 Review of Systems ROS Statement: Those systems with pertinent positive or pertinent negative responses have been documented in the HPI. ROS Other: All systems not noted in ROS Statement are negative. Past Medical History Past Medical History: Asthma, Coronary Artery Disease (CAD), COPD, GERD/Reflux, Hyperlipidemia, Hypertension, Myocardial Infarction ([place]), Myocardial Infarction (non Q-wave), Skin Disorder Additional Past Medical History / Comment(s): HX CONCUSSION X3 CHILD. KIDNEY STONE X1. ECZEMA. [place] AGE 40; POSS [place] 11/24, TOLD NOT BY [employer]ERILE PROCESSING TECHNOLOGIST - BUT STENT REPLACED. LMP 2007. HX COLON POLYPS. Last Myocardial Infarction Date:: 12-07-13 History of Any Multi-Drug Resistant Organisms: None Reported Past Surgical History: Adenoidectomy, Appendectomy, Heart Catheterization With Stent, Orthopedic Surgery, Tonsillectomy, Tubal Ligation Additional Past Surgical History / Comment(s): Cardiac Stent 13 YEARS AGO, STENT REPLACED 12-07-13. ORIF LT ANKLE, HAS PLATE/6 SCREWS. Past Anesthesia/Blood Transfusion Reactions: Previous Problems w/ Anesthesia Additional Past Anesthesia/Blood Transfusion Reaction / Comment(s): HX LOW BLOOD PRESSURE X1 W/ COLONOSCOPY (AFTER [place]). Date of Last Stent Placement:: 12/07/13 Past Psychological History: Anxiety, Depression Smoking Status: Current every day smoker Past Alcohol Use History: Daily Past Drug Use History: None Reported - Past Family History Father Family Medical History: No Reported History Additional Family Medical History / Comment(s): UNK Mother Family Medical History: Cancer Additional Family Medical History / Comment(s): AT AGE 62-CANCER General Exam Limitations: no limitations General appearance: alert, in no apparent distress Head exam: Present: atraumatic, normocephalic Eye exam: Present: normal appearance, PERRL Neck exam: Present: normal inspection. Absent: tenderness, meningismus Respiratory exam: Present: normal lung sounds bilaterally. Absent: respiratory distress, wheezes Cardiovascular Exam: Present: regular rate, normal rhythm GI/Abdominal exam: Present: soft. Absent: distended, tenderness, guarding Extremities exam: Present: normal inspection, normal capillary refill. Absent: pedal edema Neurological exam: Present: alert, oriented X3, CN II-XII intact. Absent: motor sensory deficit Psychiatric exam: Present: normal affect, normal mood Skin exam: Present: warm, dry, intact. Absent: cyanosis, diaphoretic Course Vital Signs 02/05/22 14:58 Temperature 98.4 F Pulse Rate 101 H Respiratory 20 Rate Blood Pressure 126/84 O2 Sat by Pulse 98 Oximetry Medical Decision Making - Medical Decision Making 61-year-old female with symptoms consistent with coronavirus, tested positive at home. Patient requests confirmation in the emergency department. Patient well-appearing, no respiratory distress. I did offer oral antivirals however patient declines states she is improving without medication. She is instructed to take vitamin C, vitamin D and zinc. Return parameters discussed at length. - Lab Data Lab Results 02/05/22 Range/Units 15:25 Coronavirus (PCR) Detected A (Not Detectd) Disposition Clinical Impression: COVID-19 Disposition: HOME SELF-CARE Condition: Good Instructions (If sedation given, give patient instructions): COVID-19 (Coronavirus Disease 2019) (ED) Additional Instructions: Please take [id number] vitamin D, vitamin C, and zinc Is patient prescribed a controlled substance at d/c from ED?: No Referrals: Tammie Pagan MD [Primary Care Provider] - 1-2 days Time of Disposition: 16:00
== END 2022-02-05 16:19 | disposition home or self-care (01) ==
LOC: EC 14:16
DX: U07.1 COVID-19 (principal); I10 Essential (primary) hypertension; J45.909 Unspecified asthma, uncomplicated; I25.10 Atherosclerotic heart disease of native coronary artery without angina pectoris; J44.9 Chronic obstructive pulmonary disease, unspecified; K21.9 Gastro-esophageal reflux disease without esophagitis; E78.5 Hyperlipidemia, unspecified; I21.9 Acute myocardial infarction, unspecified; F41.9 Anxiety disorder, unspecified; F32.A Depression, unspecified; F17.200 Nicotine dependence, unspecified, uncomplicated; Z79.899 Other long term (current) drug therapy; Z79.82 Long term (current) use of aspirin
CPT/HCPCS: 87635; 99283

== ENCOUNTER → 2022-03-21 | Outpatient (CLI) | payer OTHER ==
--- NOTE | 2022-03-21 13:19 | XR ---
EXAMINATION TYPE: XR lumbosacral spine min 4V DATE OF EXAM: 03/21/2022 CLINICAL HISTORY: Low back pain. TECHNIQUE: Frontal, lateral, and oblique images of the lumbar spine are obtained. COMPARISON: CT abdomen and pelvis September 11, 2020 FINDINGS: There are 5 lumbar type vertebral bodies identified accounting for sacralized L5 segment. The lumbar spine shows stable alignment with dextroconvex curvature centered at the lumbosacral junc tion. There is slight grade 1 anterolisthesis L4 on L5 redemonstrated. Vertebral body heights are wit hin normal limits. Mild multilevel disc space narrowing redemonstrated. The oblique images appear wi thin normal limits. Moderate to severe overlying arterial vascular calcification is redemonstrated. IMPRESSION: As above.
--- NOTE | 2022-03-21 13:20 | XR ---
EXAMINATION TYPE: XR sacroiliac joint comp BILAT DATE OF EXAM: 03/21/2022 COMPARISON: CT Abdomen and pelvis September 11, 2020 HISTORY: Bilateral sacroiliac joint pain. TECHNIQUE: AP and oblique images of the bilateral sacroiliac joints. FINDINGS: No asymmetric narrowing or sclerosis seen. No asymmetric spurring noted. Mild to moderate o verlying arterial vascular calcification is incidentally seen. IMPRESSION: As above.
== END | disposition home or self-care (01) ==
LOC: RADXRMAIN 12:28
PROVIDERS: ATTEND Family Medicine
DX: M53.3 Sacrococcygeal disorders, not elsewhere classified (principal); M54.50 Low back pain, unspecified; R20.2 Paresthesia of skin; G89.29 Other chronic pain
CPT/HCPCS: 72110; 72202

== ENCOUNTER 2022-10-16 14:11 | Observation (INO) | payer OTHER ==
[2022-10-16 14:36] LABS: Basophils # (A) 0.1 k/uL (0-0.2); Basophils % (A) 1 %; Eosinophils # (A) 0.1 k/uL (0-0.7); Eosinophils % (A) 2 %; HGB 15.7 gm/dL (11.4-16.0); Lymphocytes # (A) 2.2 k/uL (1.0-4.8); Lymphocytes % (A) 29 %; MCH 30.9 pg (25.0-35.0); MCV 88.3 fL (80.0-100.0); Mean Platelet Volume 7.2; Monocytes # (A) 0.4 k/uL (0-1.0); Monocytes % (A) 5 %; Neutrophils # (A) 4.8 k/uL (1.3-7.7); Neutrophils % (A) 63 %; Platelet Count 368 k/uL (150-450); RBC 5.09 m/uL (3.80-5.40); RDW 13.1 % (11.5-15.5); WBC 7.7 k/uL (3.8-10.6)
[2022-10-16 14:47] LABS: INR 0.9 (<1.2); Partial Thromboplastin Time 23.5 sec (22.0-30.0); Prothrombin Time 10.1 sec (9.0-12.0)
[2022-10-16 15:12] LABS: ALT 26 U/L (4-34); AST 33 U/L (14-36); African American GFR (CKD) >90 (>60 ml/min/1.73 sqM); Albumin 4.4 g/dL (3.5-5.0); Alkaline Phosphatase 160 U/L (38-126); Anion Gap 7 mmol/L; Blood Urea Nitrogen 12 mg/dL (7-17); Calcium 9.6 mg/dL (8.4-10.2); Carbon Dioxide 20 mmol/L (22-30); Chloride 103 mmol/L (98-107); Glucose 134 mg/dL (74-99); Magnesium 1.8 mg/dL (1.6-2.3); Non-African American GFR(CKD) >90 (>60 ml/min/1.73 sqM); Potassium 4.6 mmol/L (3.5-5.1); Sodium 130 mmol/L (137-145); Total Bilirubin 0.6 mg/dL (0.2-1.3); Total Protein 7.9 g/dL (6.3-8.2)
--- NOTE | 2022-10-16 17:18 | ED ---
Chest Pain HPI - General Source: patient Mode of arrival: wheelchair Limitations: no limitations <Davion Estes - Last Filed: 10/16/22 17:13> - General Source: patient, RN notes reviewed Limitations: no limitations <Les Angelo - Last Filed: 10/16/22 19:18> - General Chief Complaint: Chest Pain Stated Complaint: chest pain - History of Present Illness Initial Comments: 62-year-old female with a past medical history significant for hypertension hype rcholesterolemia and one half pack per day smoker for the past 3 years presents ED with chief complaint of chest pain. Patient states approximately 9 months ago was having pain of her neck and had a stress test at that time which was reportedly unremarkable however patient notes over the past 3 months has started to feel that pain in her chest. Pain is pressure like/squeezing in nature and radiates to her neck. Patient states pain is intermittent and typically lasts 30-40 seconds. Patient states pain is provoked by activity and relieves with rest however states today that she is having this pain even at rest. (Davion Estes) Patient is a pleasant [age]-year-old female presenting to the emergency department with concerns for chest discomfort. Onset of symptoms was months ago, with exertion. Symptoms were worse today and also occurring at rest. Discomfort feels like tightness. Patient does have associated exertional dyspnea. No leg pain or leg swelling. No nausea. No diaphoresis. (Les Angelo) - Related Data Home Medications Medication Instructions Recorded Confirmed Loratadine [Claritin] 10 mg PO DAILY 03/07/20 10/16/22 Metoprolol Succinate [Toprol XL] 25 mg PO DAILY 03/07/20 10/16/22 Pravastatin Sodium [Pravachol] 10 mg PO DAILY 03/07/20 10/16/22 Albuterol Inhaler [Ventolin Hfa 2 puff INHALATION RT-QID PRN 10/16/22 10/16/22 Inhaler] Fluticasone Nasal [place] [Flonase 1 spray EA NOSTRIL DAILY 10/16/22 10/16/22 Nasal [place]] Losartan Potassium 100 mg PO DAILY 10/16/22 10/16/22 Omeprazole [PriLOSEC] 20 mg PO DAILY 10/16/22 10/16/22 Sertraline [Zoloft] 50 mg PO DAILY 10/16/22 10/16/22 Previous Rx's Medication Instructions Recorded Aspirin 81 mg PO DAILY chew 09/19/19 Famotidine 20 mg PO BID #0 09/16/20 Allergies Allergy/AdvReac Type Severity Reaction Status Date / Time No Known Allergies Allergy Verified 10/16/22 18:11 Review of Systems ROS Other: All systems not noted in ROS Statement are negative. <Davion Estes - Last Filed: 10/16/22 17:13> ROS Other: All systems not noted in ROS Statement are negative. Constitutional: Denies: fever Eyes: Denies: eye pain ENT: Denies: ear pain Respiratory: Reports: as per HPI. Denies: cough Cardiovascular: Reports: as per HPI, chest pain Endocrine: Reports: fatigue Gastrointestinal: Denies: abdominal pain Genitourinary: Denies: urgency Musculoskeletal: Denies: back pain <Les Angelo - Last Filed: 10/16/22 19:18> ROS Statement: Those systems with pertinent positive or pertinent negative responses have been documented in the HPI. Past Medical History Past Medical History: Asthma, Coronary Artery Disease (CAD), COPD, GERD/Reflux, Hyperlipidemia, Hypertension, Myocardial Infarction (HI), Myocardial Infarction (non Q-wave), Skin Disorder Additional Past Medical History / Comment(s): HX CONCUSSION X3 CHILD. KIDNEY STONE X1. ECZEMA. HI AGE 40; POSS [place] 11/24, TOLD NOT BY NET DEVELOPMENT MANAGER - BUT STENT REPLACED. LMP 2007. HX COLON POLYPS. Last Myocardial Infarction Date:: 12-07-13 History of Any Multi-Drug Resistant Organisms: None Reported Past Surgical History: Adenoidectomy, Appendectomy, Heart Catheterization With Stent, Orthopedic Surgery, Tonsillectomy, Tubal Ligation Additional Past Surgical History / Comment(s): Cardiac Stent 13 YEARS AGO, STENT REPLACED 12-07-13. ORIF LT ANKLE, HAS PLATE/6 SCREWS. Past Anesthesia/Blood Transfusion Reactions: Previous Problems w/ Anesthesia Additional Past Anesthesia/Blood Transfusion Reaction / Comment(s): HX LOW BLOOD PRESSURE X1 W/ COLONOSCOPY (AFTER HI). Date of Last Stent Placement:: 12/07/13 Past Psychological History: Anxiety, Depression Smoking Status: Current every day smoker Past Alcohol Use History: Daily Past Drug Use History: None Reported - Past Family History Father Family Medical History: No Reported History Additional Family Medical History / Comment(s): UNK Mother Family Medical History: Cancer Additional Family Medical History / Comment(s): AT AGE 62-CANCER <Davion Estes - Last Filed: 10/16/22 17:13> General Exam Limitations: no limitations <Davion Estes - Last Filed: 10/16/22 17:13> Limitations: no limitations General appearance: alert, in no apparent distress Head exam: Present: normocephalic Eye exam: Present: normal appearance Neck exam: Present: normal inspection Respiratory exam: Present: normal lung sounds bilaterally. Absent: chest wall tenderness Cardiovascular Exam: Present: regular rate, normal rhythm Expanded Peripheral pulses: 2+: Radial (R), Radial (L), Dorsalis Pedis (R), Dorsalis Pedis (L) GI/Abdominal exam: Present: soft. Absent: tenderness Extremities exam: Present: normal inspection. Absent: pedal edema, calf tenderness Neurological exam: Present: alert Psychiatric exam: Present: normal affect, normal mood Skin exam: Present: normal color <Les Angelo - Last Filed: 10/16/22 19:18> Course <Les Angelo - Last Filed: 10/16/22 19:18> Vital Signs 10/16/22 10/16/22 10/16/22 14:15 17:33 18:33 Temperature 98.6 F 97.6 F Pulse Rate 91 90 82 Respiratory 20 18 16 Rate Blood Pressure 109/67 97/61 106/73 O2 Sat by Pulse 98 95 93 L Oximetry - Reevaluation(s) Reevaluation #1: 10/16/22 17:39 EKG interpreted by myself shows sinus rhythm with a rate of 88. Normal axis. Normal QRS. No acute ST change. 10/16/22 19:15 Was pt. sent in by a medical professional or institution (, PA, [facility], urgent care, hospital, or senior living...) When possible be specific @ -No Did you speak to anyone other than the patient for history (EMS, parent, family, police, friend...)? What history was obtained from this source @ -No Did you review nursing and triage notes (agree or disagree)? Why? @ -I reviewed and agree with nursing and triage notes Were old charts reviewed (outside hosp., previous admission, EMS record, old EKG, old radiological studies, urgent care reports/EKG's, senior living records)? Report findings @ -No old charts were reviewed Differential Diagnosis (chest pain, altered mental status, abdominal pain women, abdominal pain men, vaginal bleeding, weakness, fever, dyspnea, syncope, headache, dizziness, GI bleed, back pain, seizure, CVA, palpatations, mental health, musculoskeletal)? @ -Differential Chest Pain: Stable Angina, Unstable Angina, STEMI, NSTEMI Aortic Dissection, Pneumothorax, Musculoskeletal, Esophageal Spasm GERD, Cholecystitis, Pancreatitis, Zoster, this is not meant to be an all-inclusive list. EKG interpreted by me (3pts min.). @ -As above X-rays interpreted by me (1pt min.). @ -Chest x-ray shows no acute process CT interpreted by me (1pt min.). @ -None done U/S interpreted by me (1pt. min.). @ -None done What testing was considered but not performed or refused? (CT, X-rays, U/S, labs)? Why? @ -None What meds were considered but not given or refused? Why? @ -None Did you discuss the management of the patient with other professionals (professionals i.e. , PA, [facility], lab, RT, psych nurse, social media project manager, sewing machine bobbin winder, teacher, dental officer, case assistant)? Give summary @ -Case discussed with Dr. Vann, who will admit covering Dr. Griffin. Was smoking cessation discussed for >3mins.? @ -No Was critical care preformed (if so, how long)? @ -No Were there social determinants of health that impacted care today? How? (Homelessness, low income, unemployed, alcoholism, drug addiction, transportation, low edu. Level, literacy, decrease access to med. care, prison, rehab)? @ -No Was there de-escalation of care discussed even if they declined (Discuss DNR or withdrawal of care, Hospice)? DNR status @ -No What co-morbidities impacted this encounter? (DM, HTN, Smoking, COPD, CAD, Cancer, CVA, ARF, Chemo, Hep., AIDS, mental health diagnosis, sleep apnea, morbid obesity)? @ -None Was patient admitted / discharged? Hospital course, mention meds given and route, prescriptions, significant lab abnormalities, going to OR and other pertinent info. @ -Case was discussed in detail with Dr. Vann, who will admit covering for Dr. Griffin. Patient is reevaluated and resting comfortably in bed. Patient updated on results and plan. Undiagnosed new problem with uncertain prognosis? @ -No Drug Therapy requiring intensive monitoring for toxicity (Heparin, Nitro, Insulin, Cardizem)? @ -No Were any procedures done? @ -No Diagnosis/symptom? @ -Chest pain Acute, or Chronic, or Acute on Chronic? @ -Acute Uncomplicated (without systemic symptoms) or Complicated (systemic symptoms)? @ -default Side effects of treatment? @ -No Exacerbation, Progression, or Severe Exacerbation? @ -No Poses a threat to life or bodily function? How? (Chest pain, [place], HI, pneumonia, PE, COPD, DKA, ARF, appy, cholecystitis, CVA, Diverticulitis, Homicidal, Suicidal, threat to staff... and all critical care pts) @ -No (Les Angelo) Disposition <Davion Estes - Last Filed: 10/16/22 17:13> Is patient prescribed a controlled substance at d/c from ED?: No Time of Disposition: 19:18 <Les Angelo - Last Filed: 10/16/22 19:18> Clinical Impression: Chest pain Disposition: ADMITTED IP TO THIS HOSP Referrals: Tammie Pagan MD [Primary Care Provider] - 1-2 days
[2022-10-16] MEDS ORDERED: ASPIRIN 81 MG PO STA (17:36)
--- NOTE | 2022-10-16 18:28 | XR ---
EXAMINATION TYPE: XR chest 2V DATE OF EXAM: 10/16/2022 5:29 PM COMPARISON: Chest x-ray 09/18/2020 TECHNIQUE: XR chest 2V . CLINICAL INDICATION:Female, 62 years old with history of chest pain; FINDINGS: Lungs/Pleura: There is no evidence of pleural effusion, focal consolidation, or pneumothorax. Pulmonary vascularity: Unremarkable. Heart/mediastinum: Cardiomediastinal silhouette is unremarkable. Musculoskeletal: No acute osseous pathology. IMPRESSION: No acute cardiopulmonary disease/process.
[2022-10-16] MEDS ORDERED: NITROGLYCERIN SL TABS 0.4 MG TAB SUBLINGUAL PRN (19:18)
[2022-10-16] MEDS: NITROGLYCERIN OINT 1 INCH/GM PACKET TOPICAL SCH ×2 (19:25→23:01)
[2022-10-16] MEDS ORDERED: ALBUTEROL NEBULIZED 2.5 MG/3 ML INHALATION PRN (20:27)
[2022-10-17] MEDS: NITROGLYCERIN OINT 1 INCH/GM PACKET TOPICAL SCH (05:39)
[2022-10-17] MEDS ORDERED: PANTOPRAZOLE 40 MG TABLET PO SCH (07:30)
[2022-10-17 07:36] VITALS: RESP 17
[2022-10-17] MEDS ORDERED: CAFFEINE CITRATE 60 MG/3 ML VIAL IV PRN (07:59)
[2022-10-17] MEDS ORDERED: AMINOPHYLLINE 500 MG/20 ML VIAL IV PRN (07:59)
[2022-10-17] MEDS ORDERED: REGADENOSON 0.4 MG/5 ML SYRINGE IV PRN (07:59)
[2022-10-17] MEDS: LOSARTAN 50 MG TAB PO SCH ×2 (08:39→08:42)
[2022-10-17 08:45] VITALS: BP 102/66; PULSE 57; TEMP 97.7
[2022-10-17] MEDS ORDERED: LORATADINE 10 MG TAB PO SCH (09:00)
[2022-10-17] MEDS ORDERED: METOPROLOL SUCCINATE (ER) 25 MG TAB.ER.24H PO SCH (09:00)
[2022-10-17] MEDS ORDERED: ASPIRIN 81 MG PO SCH (09:00)
[2022-10-17] MEDS ORDERED: PRAVASTATIN SODIUM 20 MG TAB PO SCH ×2 (09:00)
[2022-10-17] MEDS ORDERED: ASPIRIN 325 MG TAB PO SCH (09:00)
[2022-10-17] MEDS ORDERED: FLUTICASONE 50MCG/SPRAY NASAL 16GM EA NOSTRIL SCH (09:00)
[2022-10-17] MEDS ORDERED: SERTRALINE 50 MG TAB PO SCH (09:00)
[2022-10-17 09:53] LABS: Chol/HDL Ratio 3.56 Ratio
--- NOTE | 2022-10-17 10:42 | P.CRDCN ---
History of Present Illness History of present illness: HISTORY OF PRESENT ILLNESS: This is a 62-year-old female with a past medical history significant for coronary artery disease with previous stenting, hypertension, hyperlipidemia, nicotine dependence, and daily alcohol use. Patient follows in the office with Dr. Anders. We have been asked to see the patient in consultation for chest pain. Patient examined at the bedside. Patient states yesterday she was sitting at her computer when she began having chest pain. She states the pain was in the middle of her chest and would last for 30-40 seconds. She states this would happen approximately every 10 minutes. She states the pain is worse with exertion. She also reports feeling somewhat lightheaded after she would and sees episodes of chest pain. She denies any fluttering in her chest. She is a current cigarette smoker. The patient also reports daily alcohol use with 2-3 beers daily. * EKG reveals sinus mechanism with no signs of acute ischemia * Chest xray negative for acute process * Laboratory data: WBC 7.7. Hemoglobin 15.7. Platelet count 268. D-dimer 0.39. Sodium 130. Potassium 4.6. BUN 12. Creatinine 0.62. Troponin negative 3. * Current home cardiac medications include aspirin 81 mg daily, metoprolol succinate 25 mg daily, losartan 100 mg daily * Most recent echocardiogram obtained in September 2019 revealed ejection fraction 50-55%, trace MR, trace TR REVIEW OF SYSTEMS: At the time of my exam: CONSTITUTIONAL: Denies fever or chills. HEENT: Denies blurred vision, vision changes, or eye pain. Denies hemoptysis CARDIOVASCULAR: Denies chest pain. Denies orthopnea. Denies PND. Denies palpitations RESPIRATORY: Denies shortness of breath. GASTROINTESTINAL: Denies abdominal pain. Denies nausea or vomiting. HEMATOLOGIC: Denies bleeding disorders. GENITOURINARY: Denies any blood in urine. SKIN: Denies pruitis. Denies rash. PHYSICAL EXAM: VITAL SIGNS: Reviewed. GENERAL: Well-developed in no acute distress. HEENT: Head is normocephalic. Pupils are equal, round. Sclerae anicteric. Mucous membranes of the mouth are moist. Neck supple. No JVD or thyromegaly LUNGS: Respirations even and unlabored. Lungs essentially clear to auscultation bilaterally. HEART: Regular rate and rhythm. S1 and S2 heard. ABDOMEN: Soft. Nondistended. Nontender. EXTREMITIES: Normal range of motion. No clubbing or cyanosis. Peripheral pulses intact. No lower extremity edema NEUROLOGIC: Awake and alert. Oriented x 3. ASSESSMENT: Chest pain, troponins negative 3 Coronary artery disease with previous stenting Hypertension Hyperlipidemia Nicotine dependence Daily alcohol use PLAN: An acute coronary event has been ruled out Resume home cardiac medications Decrease losartan to 50 mrem daily as blood pressures have been running on the l ower side Patient to undergo Lexiscan stress test today If negative, she may be discharged home from a cardiac standpoint Nurse practitioner note has been reviewed by physician. Signing provider agrees with the documented findings, assessment, and plan of care. Past Medical History Past Medical History: Asthma, Coronary Artery Disease (CAD), COPD, GERD/Reflux, Hyperlipidemia, Hypertension, Myocardial Infarction ([place]), Myocardial Infarction (non Q-wave), Skin Disorder Additional Past Medical History / Comment(s): HX CONCUSSION X3 CHILD. KIDNEY STONE X1. ECZEMA. [place] AGE 40; POSS [place] 11/24, TOLD NOT BY WEALTH MANAGEMENT MANAGER - BUT STENT REPLACED. LMP 2007. HX COLON POLYPS. Last Myocardial Infarction Date:: 12-07-13 History of Any Multi-Drug Resistant Organisms: None Reported Past Surgical History: Adenoidectomy, Appendectomy, Heart Catheterization With Stent, Orthopedic Surgery, Tonsillectomy, Tubal Ligation Additional Past Surgical History / Comment(s): Cardiac Stent 13 YEARS AGO, STENT REPLACED 12-07-13. ORIF LT ANKLE, HAS PLATE/6 SCREWS. Past Anesthesia/Blood Transfusion Reactions: Previous Problems w/ Anesthesia Additional Past Anesthesia/Blood Transfusion Reaction / Comment(s): HX LOW BLOOD PRESSURE X1 W/ COLONOSCOPY (AFTER GA). Date of Last Stent Placement:: 12/07/13 Past Psychological History: Anxiety, Depression Smoking Status: Current every day smoker Past Alcohol Use History: Daily Past Drug Use History: None Reported - Past Family History Father Family Medical History: No Reported History Additional Family Medical History / Comment(s): UNK Mother Family Medical History: Cancer Additional Family Medical History / Comment(s): AT AGE 62-CANCER Medications and Allergies Home Medications Medication Instructions Recorded Confirmed Type Aspirin 81 mg PO DAILY chew 09/19/19 10/16/22 Rx Loratadine [Claritin] 10 mg PO DAILY 03/07/20 10/16/22 History Metoprolol Succinate [Toprol XL] 25 mg PO DAILY 03/07/20 10/16/22 History Pravastatin Sodium [Pravachol] 10 mg PO DAILY 03/07/20 10/16/22 History Famotidine 20 mg PO BID #0 09/16/20 10/16/22 Rx Albuterol Inhaler [Ventolin Hfa 2 puff INHALATION RT-QID PRN 10/16/22 10/16/22 History Inhaler] Fluticasone Nasal [place] [Flonase 1 spray EA NOSTRIL DAILY 10/16/22 10/16/22 History Nasal [place]] Losartan Potassium 100 mg PO DAILY 10/16/22 10/16/22 History Omeprazole [PriLOSEC] 20 mg PO DAILY 10/16/22 10/16/22 History Sertraline [Zoloft] 50 mg PO DAILY 10/16/22 10/16/22 History Allergies Allergy/AdvReac Type Severity Reaction Status Date / Time No Known Allergies Allergy Verified 10/16/22 18:11 Physical Exam Vitals: Vital Signs Temp Pulse Pulse Resp BP Pulse Ox 10/17/22 07:33 59 L 17 124/67 99 10/17/22 07:26 59 L 10/17/22 04:00 55 L 14 103/56 95 10/17/22 00:00 73 16 107/46 94 L 10/16/22 20:00 77 16 109/68 94 L 10/16/22 18:33 82 16 106/73 93 L 10/16/22 17:33 97.6 F 90 18 97/61 95 10/16/22 14:15 98.6 F 91 20 109/67 98 Results 10/16/22 14:29 10/16/22 14:29 Cardiac Enzymes 10/16/22 10/16/22 10/16/22 Range/Units 14:29 14:29 17:28 AST 33 (14-36) U/L Troponin I <0.012 <0.012 (0.000-0.034) ng/mL 10/16/22 Range/Units 19:30 AST (14-36) U/L Troponin I <0.012 (0.000-0.034) ng/mL Coagulation 10/16/22 Range/Units 14:29 PT 10.1 (9.0-12.0) sec APTT 23.5 (22.0-30.0) sec CBC 10/16/22 Range/Units 14:29 WBC 7.7 (3.8-10.6) k/uL RBC 5.09 (3.80-5.40) m/uL Hgb 15.7 (11.4-16.0) gm/dL Hct 45.0 (34.0-46.0) % Plt Count 368 (150-450) k/uL Comprehensive Metabolic Panel 10/16/22 Range/Units 14:29 Sodium 130 L (137-145) mmol/L Potassium 4.6 (3.5-5.1) mmol/L Chloride 103 (98-107) mmol/L Carbon Dioxide 20 L (22-30) mmol/L BUN 12 (7-17) mg/dL Creatinine 0.62 (0.52-1.04) mg/dL Glucose 134 H (74-99) mg/dL Calcium 9.6 (8.4-10.2) mg/dL AST 33 (14-36) U/L ALT 26 (4-34) U/L Alkaline Phosphatase 160 H (38-126) U/L Total Protein 7.9 (6.3-8.2) g/dL Albumin 4.4 (3.5-5.0) g/dL Current Medications Generic Name Dose Route Start Last Admin Trade Name Freq PRN Reason Stop Dose Admin Albuterol Sulfate 2.5 mg 10/16/22 20:27 Albuterol Nebulized 2.5 Mg/3 Ml INHALATION RT-QID PRN Shortness Of Breath Aspirin 325 mg 10/17/22 09:00 Aspirin 325 Mg Tab PO DAILY REPLACED BY [facility] Fluticasone Propionate 1 spray 10/17/22 09:00 Fluticasone 50mcg/[place] Nasal 16gm EA NOSTRIL DAILY REPLACED BY [facility] Loratadine 10 mg 10/17/22 09:00 Loratadine 10 Mg Tab PO DAILY REPLACED BY [facility] Losartan Potassium 100 mg 10/17/22 09:00 Losartan 50 Mg Tab PO DAILY [facility] Metoprolol Succinate 25 mg 10/17/22 09:00 Metoprolol Succinate (Er) 25 Mg Tab.Er.24h PO DAILY REPLACED BY [facility] Nitroglycerin 0.4 mg 10/16/22 19:18 Nitroglycerin Sl Tabs 0.4 Mg Tab SUBLINGUAL Q5M PRN Chest Pain Nitroglycerin 1 inch 10/16/22 19:30 10/17/22 05:39 Nitroglycerin Oint 1 Inch/Gm Packet TOPICAL Not Given Q6HR REPLACED BY [facility] Pantoprazole Sodium 40 mg 10/17/22 07:30 10/17/22 07:25 Pantoprazole 40 Mg Tablet PO 40 mg [id number] REPLACED BY [facility] Administration Pravastatin Sodium 10 mg 10/17/22 09:00 Pravastatin Sodium 20 Mg Tab PO DAILY REPLACED BY [facility] Sertraline HCl 50 mg 10/17/22 09:00 Sertraline 50 Mg Tab PO DAILY REPLACED BY [facility] 10/16/22 14:29 10/16/22 14:29
--- NOTE | 2022-10-17 13:45 | NM ---
EXAMINATION TYPE: NM stress lexiscan cardiolite DATE OF EXAM: 10/17/2022 COMPARISON: NONE HISTORY: Chest pain TECHNIQUE: After the intravenous administration of 10.1 mCi Tc 99m Sestamibi - Cardiolite resting SP ECT images acquired 60 minutes post injection. At peak stress 24.4 mCi Tc 99m Sestamibi - Stress images obtained 55 minutes post injection The patient was stressed with 0.4mg Lexiscan. FINDINGS: No fixed defects are evident. No reversible stress defects on Spect images Wall motion is normal. Ejection fraction is calculated to be 67 %. IMPRESSION: 1. No stress-induced ischemic changes.
[2022-10-17 16:28] LABS: Chol/HDL Ratio 3.78 Ratio; LDL Cholesterol,Calculated 111.7 mg/dL (0.0-131.0)
--- NOTE | 2022-10-18 05:54 | CA ---
Lexiscan Nuclear Stress Test Report Name: Blade Davila Exam Date: 10/17/2022 10:24 Exam Location: [place] Stress Ht (in): 63 Wt (lb): 163 BSA: 1.77 Ordering Phys: Simran Cordova Referring Phys: NICOLE, Technologist: Justin Isaac Age: 62 Gender: F : 1960 Procedure CPT: Indications: Reflex order-Stress test ICD-10 Codes: Patient History: Medications: SEE CHART Meds past 24 hrs: Pretest Chest Pain: STRESS TEST Lexiscan Protocol Exercise Duration (min:sec): 02:[address] Depressions (mm): Angina Score: Lane Score: Resting HR (bpm): 61 Peak HR (bpm): 95 Resting BP (mmHg): 90 / 55 Peak BP (mmHg): 116 / 66 MPHR: 159 Target HR: 135 % MPHR: 60 METS: 1.0 Total Dose: Peak Dose: Atropine: Double Product: 79178 BP Response: Stress Termination: PROTOCOL COMPLETE Stress Symptoms: NO SYMPTOMS Stress Summary: ECG ANALYSIS Resting ECG: Stress ECG: CONCLUSIONS No ECG evidence for ischemia during Lexiscan infusion Normal heart rate and blood pressure response No arrhythmias Nuclear portion will be reported separately Dr. Chente Anders MD (Electronically Signed) Final Date: 18 October 2022 05:50
[2022-10-18] MEDS ORDERED: LOSARTAN 50 MG TAB PO SCH (09:00)
--- NOTE | 2022-10-18 12:34 | P.HPIM ---
History of Present Illness H&P Date: 10/16/22 Chief Complaint: Chest pain 62-year-old female with a past medical history significant for coronary artery disease with previous stenting, hypertension, hyperlipidemia, nicotine dependence, and daily alcohol use. Patient states yesterday she was sitting at her computer when she began having chest pain. She states the pain was in the middle of her chest and would last for 30-40 seconds. She states this would happen approximately every 10 minutes. She states the pain is worse with exertion. She also reports feeling somewhat lightheaded after she would and sees episodes of chest pain. She denies any fluttering in her chest. She is a current cigarette smoker. The patient also reports daily alcohol use with 2-3 beers daily. EKG reveals sinus mechanism with no signs of acute ischemia Chest xray negative for acute process Laboratory data: WBC 7.7. Hemoglobin 15.7. Platelet count 268. D-dimer 0.39. Sodium 130. Potassium 4.6. BUN 12. Creatinine 0.62. Troponin negative 3. Most recent echocardiogram obtained in September 2019 revealed ejection fraction 50- 55%, trace MR, trace TR Review of Systems REVIEW OF SYSTEMS: CONSTITUTIONAL: No fever, no malaise, no fatigue. HEENT: No recent visual problems or hearing problems. Denied any sore throat. CARDIOVASCULAR: No chest pain, orthopnea, PND, no palpitations, no syncope. PULMONARY: No shortness of breath, no cough, no hemoptysis. GASTROINTESTINAL: No diarrhea, no nausea, no vomiting, no abdominal pain. NEUROLOGICAL: No headaches, no weakness, no numbness. HEMATOLOGICAL: Denies any bleeding or petechiae. GENITOURINARY: Denies any burning micturition, frequency, or urgency. MUSCULOSKELETAL/RHEUMATOLOGICAL: Denies any joint pain, swelling, or any muscle pain. ENDOCRINE: Denies any polyuria or polydipsia. The rest of the 14-point review of systems is negative. Past Medical History Past Medical History: Asthma, Coronary Artery Disease (CAD), COPD, GERD/Reflux, Hyperlipidemia, Hypertension, Myocardial Infarction (IA), Myocardial Infarction (non Q-wave), Skin Disorder Additional Past Medical History / Comment(s): HX CONCUSSION X3 CHILD. KIDNEY STONE X1. ECZEMA. IA AGE 40; POSS IA 11/24, TOLD NOT BY STUDENT COUNSELLOR - BUT STENT REPLACED. LMP 2007. HX COLON POLYPS. Last Myocardial Infarction Date:: 12-07-13 History of Any Multi-Drug Resistant Organisms: None Reported Past Surgical History: Adenoidectomy, Appendectomy, Heart Catheterization With Stent, Orthopedic Surgery, Tonsillectomy, Tubal Ligation Additional Past Surgical History / Comment(s): Cardiac Stent 13 YEARS AGO, STENT REPLACED 12-07-13. ORIF LT ANKLE, HAS PLATE/6 SCREWS. Past Anesthesia/Blood Transfusion Reactions: Previous Problems w/ Anesthesia Additional Past Anesthesia/Blood Transfusion Reaction / Comment(s): HX LOW BLOOD PRESSURE X1 W/ COLONOSCOPY (AFTER IA). Date of Last Stent Placement:: 12/07/13 Past Psychological History: Anxiety, Depression Smoking Status: Current every day smoker Past Alcohol Use History: Daily Past Drug Use History: None Reported - Past Family History Father Family Medical History: No Reported History Additional Family Medical History / Comment(s): UNK Mother Family Medical History: Cancer Additional Family Medical History / Comment(s): AT AGE 62-CANCER Medications and Allergies Home Medications Medication Instructions Recorded Confirmed Type Aspirin 81 mg PO DAILY chew 09/19/19 10/16/22 Rx Loratadine [Claritin] 10 mg PO DAILY 03/07/20 10/16/22 History Metoprolol Succinate [Toprol XL] 25 mg PO DAILY 03/07/20 10/16/22 History Pravastatin Sodium [Pravachol] 10 mg PO DAILY 03/07/20 10/16/22 History Famotidine 20 mg PO BID #0 09/16/20 10/16/22 Rx Albuterol Inhaler [Ventolin Hfa 2 puff INHALATION RT-QID PRN 10/16/22 10/16/22 History Inhaler] Fluticasone Nasal [place] [Flonase 1 spray EA NOSTRIL DAILY 10/16/22 10/16/22 History Nasal [place]] Losartan Potassium 100 mg PO DAILY 10/16/22 10/16/22 History Omeprazole [PriLOSEC] 20 mg PO DAILY 10/16/22 10/16/22 History Sertraline [Zoloft] 50 mg PO DAILY 10/16/22 10/16/22 History Allergies Allergy/AdvReac Type Severity Reaction Status Date / Time No Known Allergies Allergy Verified 10/16/22 18:11 Physical Exam Vitals: Vital Signs Temp Pulse Resp BP Pulse Ox 10/16/22 20:00 77 16 109/68 94 L 10/16/22 18:33 82 16 106/73 93 L 10/16/22 17:33 97.6 F 90 18 97/61 95 10/16/22 14:15 98.6 F 91 20 109/67 98 Intake and Output 10/16/22 10/16/22 10/16/22 06:59 14:59 22:59 Other: Weight 73.936 kg PHYSICAL EXAMINATION: GENERAL: The patient is alert and oriented x3, not in any acute distress. Well developed, well nourished. HEENT: Pupils are round and equally reacting to light. EOMI. No scleral icterus. No conjunctival pallor. Normocephalic, atraumatic. No pharyngeal erythema. No thyromegaly. CARDIOVASCULAR: S1 and S2 present. No murmurs, rubs, or gallops. PULMONARY: Chest is clear to auscultation, no wheezing or crackles. ABDOMEN: Soft, nontender, nondistended, normoactive bowel sounds. No palpable organomegaly. MUSCULOSKELETAL: No joint swelling or deformity. EXTREMITIES: No cyanosis, clubbing, or pedal edema. NEUROLOGICAL: Gross neurological examination did not reveal any focal deficits. SKIN: No rashes. Results CBC & Chem 7: 10/16/22 14:29 10/16/22 14:29 Labs: Abnormal Lab Results - Last 24 Hours (Table) 10/16/22 Range/Units 14:29 Sodium 130 L (137-145) mmol/L Carbon Dioxide 20 L (22-30) mmol/L Glucose 134 H (74-99) mg/dL Alkaline Phosphatase 160 H (38-126) U/L Assessment and Plan Assessment: Chest pain rule out acute coronary syndrome Coronary artery disease with previous stenting Hypertension Hyperlipidemia Nicotine dependence Daily alcohol use PLAN: An acute coronary event has been ruled out Resume home cardiac medications Decrease losartan to 50 mrem daily as blood pressures have been running on the lower side Patient to undergo Lexiscan stress test today
--- NOTE | 2022-10-18 12:35 | P.DS ---
Providers Date of admission: 10/16/22 19:18 Expected date of discharge: 10/17/22 Attending physician: Pedro Rapp MD Consults: 10/16/22 19:18 Consult Physician Urgent Consulting Provider: Marshall Mason Consult Reason/Comments: cp Do you want consulting provider notified?: Yes Primary care physician: [facility] Course: 62-year-old female with a past medical history significant for coronary artery disease with previous stenting, hypertension, hyperlipidemia, nicotine dependence, and daily alcohol use. Patient follows in the office with Dr. Anders. We have been asked to see the patient in consultation for chest pain. Patient examined at the bedside. Patient states yesterday she was sitting at her computer when she began having chest pain. She states the pain was in the middle of her chest and would last for 30-40 seconds. She states this would happen approximately every 10 minutes. She states the pain is worse with exertion. She also reports feeling somewhat lightheaded after she would and sees episodes of chest pain. She denies any fluttering in her chest. She is a current cigarette smoker. The patient also reports daily alcohol use with 2-3 beers daily. * EKG reveals sinus mechanism with no signs of acute ischemia * Chest xray negative for acute process * Laboratory data: WBC 7.7. Hemoglobin 15.7. Platelet count 268. D-dimer 0.39. Sodium 130. Potassium 4.6. BUN 12. Creatinine 0.62. Troponin negative 3. * Current home cardiac medications include aspirin 81 mg daily, metoprolol succinate 25 mg daily, losartan 100 mg daily * Most recent echocardiogram obtained in September 2019 revealed ejection fraction 50-55%, trace MR, trace TR Chest pain, troponins negative 3 Coronary artery disease with previous stenting Hypertension Hyperlipidemia Nicotine dependence Daily alcohol use PLAN: An acute coronary event has been ruled out Resume home cardiac medications Decrease losartan to 50 mrem daily as blood pressures have been running on the lower side Patient to undergo Lexiscan stress test today -- Stress test was negative for reversible ischemia; patient will be discharged home and follow-up with primary manager occupational Plan - Discharge Summary New Discharge Prescriptions: Continue Aspirin 81 mg PO DAILY chew Pravastatin Sodium [Pravachol] 10 mg PO DAILY Metoprolol Succinate [Toprol XL] 25 mg PO DAILY Loratadine [Claritin] 10 mg PO DAILY Omeprazole [PriLOSEC] 20 mg PO DAILY Losartan Potassium 100 mg PO DAILY Albuterol Inhaler [Ventolin Hfa Inhaler] 2 puff INHALATION RT-QID PRN PRN Reason: Shortness Of Breath Famotidine 20 mg PO BID #0 Sertraline [Zoloft] 50 mg PO DAILY Fluticasone Nasal [place] [Flonase Nasal [place]] 1 spray EA NOSTRIL DAILY Discharge Medication List Aspirin 81 mg PO DAILY chew 09/19/19 [Rx] Loratadine [Claritin] 10 mg PO DAILY 03/07/20 [History] Metoprolol Succinate [Toprol XL] 25 mg PO DAILY 03/07/20 [History] Pravastatin Sodium [Pravachol] 10 mg PO DAILY 03/07/20 [History] Famotidine 20 mg PO BID #0 09/16/20 [Rx] Albuterol Inhaler [Ventolin Hfa Inhaler] 2 puff INHALATION RT-QID PRN 10/16/22 [History] Fluticasone Nasal [place] [Flonase Nasal [place]] 1 spray EA NOSTRIL DAILY 10/16/22 [History] Losartan Potassium 100 mg PO DAILY 10/16/22 [History] Omeprazole [PriLOSEC] 20 mg PO DAILY 10/16/22 [History] Sertraline [Zoloft] 50 mg PO DAILY 10/16/22 [History] Follow up Appointment(s)/Referral(s): Chente Anders MD [STAFF PHYSICIAN] - 1 Week Tammie Pagan MD [Primary Care Provider] - 1-2 days Patient Instructions/Handouts: Chest Pain (DC) Discharge Disposition: HOME SELF-CARE
== END 2022-10-17 14:35 | disposition home or self-care (01) ==
LOC: EC 14:11 → 6NMEDSUR 19:18
PROVIDERS: ADMIT Internal Medicine; ATTEND Internal Medicine
DX: R07.89 Other chest pain (principal); I25.10 Atherosclerotic heart disease of native coronary artery without angina pectoris; I10 Essential (primary) hypertension; E78.00 Pure hypercholesterolemia, unspecified; J44.9 Chronic obstructive pulmonary disease, unspecified; I25.2 Old myocardial infarction; K21.9 Gastro-esophageal reflux disease without esophagitis; L30.9 Dermatitis, unspecified; R42 Dizziness and giddiness; F17.210 Nicotine dependence, cigarettes, uncomplicated; F10.90 Alcohol use, unspecified, uncomplicated; F32.A Depression, unspecified; F41.9 Anxiety disorder, unspecified; Z79.82 Long term (current) use of aspirin; Z79.899 Other long term (current) drug therapy; Z87.442 Personal history of urinary calculi; Z87.820 Personal history of traumatic brain injury; Z86.010 Personal history of colon polyps; Z95.5 Presence of coronary angioplasty implant and graft; Z90.49 Acquired absence of other specified parts of digestive tract; Z98.51 Tubal ligation status; Z98.890 Other specified postprocedural states; Z80.9 Family history of malignant neoplasm, unspecified
CPT/HCPCS: 99285; 36415; 93005 ×2; 93017; 85379; 80061 ×2; 80053; 83735; 84484; 85025; 85610; 85730; 83036; 71046; 78452; G0378 ×2; A9500; J2785

== ENCOUNTER → 2024-03-08 | Outpatient (CLI) | payer OTHER ==
--- NOTE | 2024-03-08 13:12 | CT ---
EXAMINATION TYPE: CT chest w con CT DLP: 342.60 mGycm, Automated exposure control for dose reduction was used. DATE OF EXAM: 03/08/2024 12:46 PM COMPARISON: CT chest 09/16/2020, chest radiograph 10/16/2022 CLINICAL INDICATION:Female, 64 years old with history of R91.8 ABN FINDINGS OF THE LUNG FIELD; [facility], a bnormal CXR at urgent care x6 weeks ago TECHNIQUE: Multiple axial images were obtained through the chest following the administration of 100 cc of Isovue 300. . Coronal and sagittal reformats reviewed. FINDINGS: LUNGS/ PLEURA: No pleural effusion or pneumothorax. Scattered subtle reticular opacities identified within the left upper lobe and lingula. No suspicious pulmonary nodule or mass. AIRWAY: Patent and unremarkable.. HEART: The heart is mildly increased in size..No pericardial effusion. Coronary calcifications involv ing LAD and circumflex arteries. MEDIASTINUM: No evidence of adenopathy. VASCULATURE: No aortic aneurysm. MUSCULOSKELETAL: No acute osseous abnormalities. Mild dextrocurvature of the thoracic spine which may be due to patient positioning. SOFT TISSUES/LYMPH NODES: Unremarkable. LOWER NECK: No significant findings. UPPER ABDOMEN: Focal region of cortical thinning involving superior pole of the right kidney likely f rom prior insult. IMPRESSION: Scattered subtle left upper lobe and lingular reticular opacities likely representing an atypical inf ectious process. [facility], , 03/08/2024 1:09 PM
[2024-03-08 19:04] LABS: Basophils # (A) 0.05 X 10*3/uL (0.00-0.10); Basophils % (A) 0.6 %; Eosinophils # (A) 0.09 X 10*3/uL (0.04-0.35); Eosinophils % (A) 1.1 %; HCT 44.8 % (37.2-46.3); HGB 15.6 g/dL (12.0-15.0); Lymphocytes # (A) 2.36 X 10*3/uL (0.90-5.00); MCH 30.2 pg (27.0-32.0); MCHC 34.8 g/dL (32.0-37.0); MCV 86.7 FL (80.0-97.0); Mean Platelet Volume 9.9 FL (9.5-12.2); Monocytes # (A) 0.64 X 10*3/uL (0.20-1.00); Monocytes % (A) 7.9 %; NRBC Per 100 WBC 0 X 10*3/uL (0.00-0.01); Neutrophils # (A) 4.96 X 10*3/uL (1.80-7.70); Neutrophils % (A) 60.9 %; Platelet Count 332 X 10*3/uL (140-440); RBC 5.17 X 10*6/uL (4.10-5.20); RDW 12.5 % (11.5-14.5); WBC 8.14 X 10*3/uL (4.50-10.00)
[2024-03-08 20:07] LABS: ALT 25 U/L (8-44); AST 23 U/L (13-35); Albumin 4.4 g/dL (3.8-4.9); Albumin/Globulin Ratio 1.57 Ratio (1.60-3.17); Alkaline Phosphatase 135 U/L (41-126); Blood Urea Nitrogen 7.7 mg/dL (9.0-27.0); Calcium 9.9 mg/dL (8.7-10.3); Carbon Dioxide 25.2 mmol/L (21.6-31.8); Chloride 95 mmol/L (96-109); Creatine Kinase 61 U/L (26-186); Globulin 2.8 g/dL (1.6-3.3); Glucose 100 mg/dL (70-110); Iron 122 UG/DL (50-170); LDL Cholesterol,Calculated 116.2 mg/dL (0.0-131.0); Magnesium 1.8 mg/dL (1.5-2.4); Phosphorus 3.4 mg/dL (2.4-5.1); Potassium 4.9 mmol/L (3.5-5.5); Sodium 133 mmol/L (135-145); Total Bilirubin 0.5 mg/dL (0.3-1.2); Total Protein 7.2 g/dL (6.2-8.2); Uric Acid 4.1 mg/dL (2.9-7.7)
[2024-03-08 22:26] LABS: Anti-DNA, DS unit <1.0 IU/mL; DNA Double-Stranded Negative (Negative)
== END | disposition home or self-care (01) ==
LOC: RADCTMAIN 11:42
PROVIDERS: ATTEND Family Medicine
DX: Z00.00 Encounter for general adult medical examination without abnormal findings (principal); R91.8 Other nonspecific abnormal finding of lung field; E78.5 Hyperlipidemia, unspecified; I25.10 Atherosclerotic heart disease of native coronary artery without angina pectoris; D64.9 Anemia, unspecified; J44.9 Chronic obstructive pulmonary disease, unspecified; I10 Essential (primary) hypertension; E87.8 Other disorders of electrolyte and fluid balance, not elsewhere classified; M10.00 Idiopathic gout, unspecified site; K75.9 Inflammatory liver disease, unspecified; N18.30 Chronic kidney disease, stage 3 unspecified; E11.65 Type 2 diabetes mellitus with hyperglycemia; N39.0 Urinary tract infection, site not specified; E03.9 Hypothyroidism, unspecified; N20.0 Calculus of kidney; R80.9 Proteinuria, unspecified; E55.9 Vitamin D deficiency, unspecified
CPT/HCPCS: 80061; 80053; 84443; 82550; 83540; 83735; 84100; 84550; 85025; 86140; 82306; 86038; 86039; 86225; 83970; 83036; 71260; Q9967